=== PATIENT | female | born 1995 | race Caucasian/White ===

== ENCOUNTER 2017-01-28 12:16 | Emergency (ER) | payer MEDICAID ==
[~2017-01-28] VITALS: Ht 162.6 cm; Wt 81.6 kg
--- OUTSIDE RECORDS SUMMARY | 2017-01-28 12:38 | External Medical Summary Rpt ---
Author Author YESI M[facility] Organization [facility] Address Unknown Phone Unavailable Care Team Providers Care Automotive Refinisher Name Role Phone PHY, NOT LISTED PCP Unavailable Encounter YESI GODDARD [id number] Date(s): 07/04/16 - 07/05/16 [facility] [address] [place] [address]- Discharge Disposition: OP Self Care or Home Attending Physician: JASWINDER BLANCHARD Admitting Physician: JASWINDER BLANCHRAD Referring Physician: JASWINDER BLANCHARD Reason for Visit MISSED Vital Signs Most recent 1 2 3 to oldest [Reference Range]: Temperature Temporal artery Temporal artery Temporal artery Source scanning scanning scanning (07/05/16 6:05 (07/05/16 5:44 (07/05/16 4:02 PM) PM) PM) Temperature Fahrenheit Fahrenheit Fahrenheit Mode (07/05/16 6:05 (07/05/16 5:44 (07/05/16 4:02 PM) PM) PM) Temperature, 97.9 Deg F 97.5 Deg F 97.7 Deg F Fahrenheit (07/05/16 6:05 (07/05/16 5:44 (07/05/16 4:02 [96.8-99.7 PM) PM) PM) Deg F] Clinical 36.6 Deg C 36.4 Deg C 36.5 Deg C Temperature, (07/05/16 6:05 (07/05/16 5:44 (07/05/16 4:02 C PM) PM) PM) Peripheral 83 bpm (07/05/16 Pulse Rate 2:11 PM) [60-100 bpm] Heart Rate 66 bpm (07/05/16 62 bpm (07/05/16 57 bpm Monitored 6:05 PM) 5:44 PM) *LOW*(07/05/16 [60-100 bpm] 5:37 PM) Respiratory 18 Breaths/Min 16 Breaths/Min 16 Breaths/Min Rate [14-20 (07/05/16 6:05 (07/05/16 5:44 (07/05/16 5:37 Breaths/Min] PM) PM) PM) Blood Non-Invasive BP Pressure Device (07/05/16 Source 2:11 PM) Blood Sitting (07/05/16 Pressure 2:11 PM) Position Blood 109/66 mmHg 101/57 mmHg 100/49 mmHg Pressure (07/05/16 6:05 (07/05/16 5:44 (07/05/16 5:37 [90-140/60-9 PM) PM) PM) 0 mmHg] Oxygen 97 % (07/05/16 100 % (07/05/16 96 % (07/05/16 Saturation 6:05 PM) 5:44 PM) 5:37 PM) [94-100 %] Oxygen Room air Room air Nasal cannula Therapy Mode (07/05/16 6:05 (07/05/16 5:44 (07/05/16 5:37 PM) PM) PM) Oxygen Flow 2 Liter/Min 2 Liter/Min 2 Liter/Min Rate (07/05/16 5:37 (07/05/16 5:02 (07/05/16 4:32 PM) PM) PM) Problem List Condition Effective Status Health Informant Dates Status Vaginal Active expulsion of product of conception(C onfirmed) Allergies, Adverse Reactions, Alerts No Known Medication Allergies Medications multivitamin, ( Plus Iron oral tablet)1 Tab, Oral, Every Day, Refills: 0 Results HEMATOLOGY Most recent 1 to oldest [Reference Range]: WBC [4.2-9.1 6.2 K/uL K/uL] (07/05/16 2:01 PM) RBC 4.41 Million/uL [3.93-5.22 (07/05/16 2:01 PM) Million/uL] Hgb 12.1 Gram/dL [11.2-15.7 (07/05/16 2:01 PM) Gram/dL] Hct 36.1 % [34.1-44.9 (07/05/16 2:01 PM) %] MCV 81.9 fL [79.0-94.8 (07/05/16 2:01 PM) fL] MCH 27.4 pg [25.6-32.2 (07/05/16 2:01 PM) pg] MCHC 33.5 Gram/dL [32.2-36.5 (07/05/16 2:01 PM) Gram/dL] Platelet 175 K/uL Count (07/05/16 2:01 PM) [163-369 K/uL] MPV 11.2 fL [9.4-12.4 (07/05/16 2:01 PM) fL] RDW 14.3 % [11.6-14.4 (07/05/16 2:01 PM) %] Neut % 62.0 % [34.0-71.0 (07/05/16 2:01 PM) %] Neut # 3.85 K/uL [1.56-6.13 (07/05/16 2:01 PM) K/uL] Lymph % 30.3 % [19.0-53.0 (07/05/16 2:01 PM) %] Lymph # 1.88 K/uL [1.18-3.74 (07/05/16 2:01 PM) K/uL] [place] % 7.2 % [4.7-12.5 %] (07/05/16 2:01 PM) [place] # 0.45 K/uL [0.24-0.82 (07/05/16 2:01 PM) K/uL] Eos % 0.5 % [1.0-7.0 %] *LOW* (07/05/16 2:01 PM) Eos # 0.03 K/uL [0.04-0.54 *LOW* K/uL] (07/05/16 2:01 PM) Baso % 0.0 % [0.0-1.0 %] (07/05/16 2:01 PM) Baso # 0.00 K/uL [0.01-0.08 *LOW* K/uL] (07/05/16 2:01 PM) Slide Review No (07/05/16 2:01 PM) BLOOD BANK Most recent 1 to oldest [Reference Range]: ABO/Rh A NEG *Unknown* (07/05/16 2:01 PM) Antibody Negative ABSC Screen (07/05/16 2:01 PM) (Tube) RhIg Product RhIg Prd Ready Ready (07/05/16 2:01 PM) # of Vials 1 (07/05/16 2:01 PM) Immunizations No data available for this section Procedures Procedure Date Related Body Site Diagnosis cyst removal 2010 tonsillectomy Social History Social History Response Type Smoking Status Former smoker; Tobacco Use Within Last Twelve Months Cigarettes; Years of Tobacco Use 2; Used Tobacco, but Quit Yes Assessment and Plan No data available for this section Hospital Discharge Instructions No data available for this section
--- OUTSIDE RECORDS SUMMARY | 2017-01-28 12:38 | External Medical Summary Rpt ---
Author Author YESI Moura [facility] Organization [facility] Address Unknown Phone Unavailable Care Team Providers Care Grinder Operator Name Role Phone PHY, NOT LISTED PCP Unavailable Encounter YESI GODDARD [id number] Date(s): 07/04/16 - 07/05/16 [facility] [address] [place] [address]- Discharge Disposition: OP Self Care or Home Attending Physician: JASWINDER BLANCHARD Admitting Physician: JASWINDER BLANCHARD Referring Physician: JASWINDER BLANCHARD Reason for Visit [...] 1.88 K/uL [1.18-3.74 (07/05/16 2:01 PM) K/uL] [place] % 7.2 % [4.7-12.5 %] (07/05/16 2:01 PM) [place] # 0.45 K/uL [0.24-0.82 (07/05/16 2:01 PM) [...]
--- NOTE | 2017-01-28 12:43 | Emergency Room Report ---
History of Present Illness Time Seen by MD Tsai Presenting Problem in Triage Pt arrived:Walked Presenting Problem:PT C/O ABD PAIN THAT SHE BELIEVES IS R/T OVARIES Onset of symptoms date/time:/ or onset unknown for:MEDICAL HX UNKNOWN Treatment Prior to Arrival: [employer] Provided by: Sepsis Risk Assessment: Temp: 98.7 B/P: 131/78 MAP: 95 Pulse: 94 Resp: 18 Recent fever? N Clinical Suspician of Infection? N Mental Status: 1 - Regular (Normal Baseline) Sepsis Risk:Low Sepsis Risk Have you (or family members/close friends) recently traveled outside the [place]? N If Yes, where/when: Have you had exposure to infectious disease within the past month? N TB? Other? Specify: Source patient Exam Limitations no limitations Comment 21 yr old female presents for c/o of rt lower quad pain. pt states pain worse with intercourse. Last menstral period last week and restarted this week. Cardiac Chest Pain Chest pain indicative of cardiac No ALLERGIES Coded Allergies: No Known Allergies (01/28/17) (Scar Canales) History Medical History General CAD? No Angina: No CT: No Hypertension? No Hyperlipidemia? No CHF? No DVT? No PE? No COPD? No Asthma? No Anemia? No GERD? No Gastric ulcers? No GI Bleed? No Hernia? No Thyroid Problems? No Hypothyroidism? No CVA? No Seizures? No Diabetes? No Renal Insuffiency? No End Stage Renal Disease? No UTI? No Stones? No BPH? No GB Disease: No Nephritic Syndrome? No Asplenia? No Hepatitis? No Sickle Cell Disease? No Arthritis? No Migraines? No Cataracts? No Glaucoma? No MRSA? No HIV? No TB? No Anxiety? No Depression? No Cancer? No More? No Immunization Hx DT/Tetanus Unknown Surgical Hx Previous Surgery?Y D & C BACK CYST [employer] Hx LMP 1 Week Ago Social History Smoking Hx Smoker: Current Every Day Smoker Tobacco: Yes Type Cigarettes Alcohol Alcohol: No (Scar Canales) Review of Systems All Other Systems Reviewed and Negative Gastrointestinal see HPI, abdominal pain Genitourinary see HPI, abnormal vaginal bleeding. (cSar Canales) Physical Exam Vital Signs Vital Signs Date Time Temp Pulse Resp B/P Pulse O2 O2 Flow FiO2 Ox Delivery Rate 01/28 1312 98.7 66 18 132/83 100 06/05 1222 98.7 94 18 131/78 97 - WBC >12,000 or <4,000 or 10% bands? 2 or more SIRS Criteria Met? B/P:131/78 MAP:95 Creatinine >2.0? UA output<0.5ml/kg/hr for 2 hrs? Platelet count >100,000? Lactate >2.0mmol/1? INR >1.2 or PTT > than 60 sec? Evidence of Organ Dysfunction? Provider documented clinical suspician of infection? N Sepsis Criteria Count: 1 Sepsis Risk: Low Sepsis Risk General Appearance normal appearance, no apparent distress Respiratory Status Yes: trachea midline, chest symmetrical. No: respiratory distress. Lung Sounds bilateral: normal breath sounds, lungs clear. Cardiovascular normal exam, regular rate/rhythm Gastrointestinal normal bowel sounds, tenderness (rt quad) Back normal inspection, no CVA tenderness, no vertebral tenderness, bowel/ bladder continent Extremities non-tender, normal range of motion, normal inspection Neurologic alert, normal exam, no motor/sensory deficits, oriented x 3 (Scar Canales) Stroke Score/Tx Stroke Evaluation Initial symptoms indicative of possible stroke? No (Scar Canales) Suicide Risk Assessment Suicide Assessment indicated? No (Scar Canales) Medical Decision Making LABS/Meds/Orders Pt receiving controlled substance in ED? No Results/Orders Laboratory Tests 01/28/17 1230: Urine Color YELLOW, Urine Appearance CLEAR, Urine pH 5.5, Ur Specific [place] 1.010, Urine Protein NEGATIVE, Urine Ketones NEGATIVE, Urine Blood TRACE-LYSED, Urine Nitrate NEGATIVE, Urine Bilirubin NEGATIVE, Urine Urobilinogen 0.2, Ur Leukocyte Esterase NEGATIVE, Ur Squamous Epith Cells 3-5, Urine Bacteria TRACE, Urine Glucose NEGATIVE Current Medication Orders Sig/[place] Start time Last Medication Dose Route Stop Time Status Admin Ketorolac 30 MG ONCE ONE 01/28 1230 DC Tromethamine IV 01/28 1231 Ondansetron HCl 4 MG ONCE ONE 01/28 1230 DC IV 01/28 1231 Sodium Chloride 10 ML PRN PRN 01/28 1230 AC IV 01/29 1227 Sodium Chloride 1,000 ML .Q1H1M 01/28 1230 DC IV 01/28 1330 Sodium Chloride 10 ML PRN PRN 01/28 1230 AC IV 01/29 1227 Orders Procedure Date/time Status DIET-NOTHING BY MOUTH 01/28 D Active WET PREP 01/28 1335 Active CHLAMYDIA/GC 01/28 1335 Active US PELVIS-TRANSVAGINAL ONLY 01/28 1237 Active IV SALINE LOCK 01/28 1228 Active URINALYSIS/COMPLETE 01/28 1228 Complete URINE 01/28 1228 Complete LIPASE 01/28 1228 Active CBC WITH AUTO DIFF 01/28 1228 Active CHEM 12 PROFILE 01/28 1228 Active AMYLASE 01/28 1228 Active XRAY/CT/US XRAY/CT/US Ultrasound pelvis US Interpretation by discussed w/radiologist US results bilateral polycystic r fluid culsac uterus retroverted Progress ED Progress Notes Date 01/28/17 Time 1311 Comment [facility] office 01/31/17 @ 330 ED Procedure Note Date 01/28/17 Time 1325 - pelvic pap completed, no abnormal findings, cervix tilt to side.cultures obtained. (Scar Canales) Departure Departure Time of Disposition 1326 Disposition DC Home or Self Care(routine) Clinical Impression Primary Impression: Pelvic pain Condition STABLE Referrals Lucila HOFFMAN,Richy Lema Patient Instructions DI for Pelvic Pain Additional Instructions follow up with lucila on 01/31/17 at 330. Discharge Counseling Counseled pt/family regarding diagnosis, test results, medications/RX, home care, follow up needs Prescriptions Current Visit Scripts IBUPROFEN (Motrin 600MG) 600 MG PO Q6HP PRN BREAKTHROUGH MOD TO SEV PAIN 5 Days ED Critical Care Critical Care No If Critical Care minutes are documented, the time involved in the performance of seperately reportable procedures was not counted toward critical care time documented. I directly delivered medical care to this critically ill and/or injured patient. Timely evaluation and treatment was necessary to address the significant organ system(s) dysfunction present in this patient. Comments discussed case with dr bettencourt (Scar Canales) at 1330 at 1335
--- OUTSIDE RECORDS SUMMARY | 2017-01-28 12:43 | External Medical Summary Rpt ---
Author Author , Organization [employer] Address Unknown Phone Unavailable Care Team Providers [facility] Library Director Name Role Phone PANTAMMYAnne Marie NORMA, BOUBACAR NORMA Unavailable Unavailable [facility], [facility] Unavailable Unavailable CHR LAURA TER, LAURA TER Unavailable Unavailable HIMA JAM, HIMA JAM Unavailable Unavailable HIMA JAM, HIMA JAM Unavailable Unavailable ADAN AAR, ADAN AAR Unavailable Unavailable [facility]-JC MERLIN, Unavailable Unavailable DUCHELSIECZ-SULICZ MERLIN DUCARLIN-JC MERLIN, Unavailable Unavailable DUCHELSIECZ-JC MERLIN MILDRED-SULICZ, Unavailable Unavailable NATALY Arteaga, CHANDA, NATALY I YUE CONRAD, Unavailable Unavailable YUE CONRAD, MACK Unavailable Unavailable DEN LASHANDA MUH, LASHANDA Unavailable Unavailable MUH LASHANDA MUH, LASHANDA Unavailable Unavailable MUH LASHANDA, LYNNE, Unavailable Unavailable LASHANDA, LYNNE KANIKA BA, KANIKA ANT Unavailable Unavailable [facility], Un[facility] Unavailable [facility] Unavailable Unavailable SERVICES, [facility] [employer], Unavailable Unavailable [facility] [employer] COURTNEY LOAIZA, COURTNEY LOAIZA Unavailable Unavailable [facility] Unavailable [facility]available [facility] Unavailable Unavailable [facility], [facility] Unavailable [facility]available [facility] Unavailable [facility]available [facility] Unavailable [facility]available [facility] Unavailable Unavailable [facility] Unavailable Unavailable [facility] Unavailable Unavailable [facility] Unavailable Unavailable [facility] Unavailable Unavailable [facility] Unavailable Unavailable [facility] Unavailable Unavailable [facility] YOMI LORRIE, YOMI Unavailable Unavailable LORRIE YOMI, ROSY, YOMI, Unavailable Unavailable ROSY JEANNINE ROMAN, Unavailable Unavailable JEANNINE ROMAN JEANNINE ROMAN, Unavailable Unavailable JEANNINE ROMAN JEANNINE SEE, Unavailable Unavailable JEANNINE SEE JEANNINE SEE, Unavailable Unavailable JEANNINE SEE JEANNINE, DANIEL S, Unavailable Unavailable JEANNINE, DANIEL S JEANNINE, THU, Unavailable Unavailable JEANNINE, THU DANA SHE, DANA SHE Unavailable Unavailable [facility], Unavailable Unavailable [facility] RONNIE, ENID L, Unavailable Unavailable RONNIE, ENID L [facility], Unavailable Unavailable [facility] FITZ MIRAMONTES, FITZ Unavailable Unavailable [facility] Unavailable Unavailable #[id number], [id number] [place] [place] Unavailable Unavailable Purpose Continuity of Care Document - 10-13-2007 through 2016 Problems Code Diagnosis DOS Provider Status J020 STREPTOCOCC 05-29-2015 [facility] AL FOR PHARYNGITIS CHILDREN V2541 SURVEILLANC 01-05-2015 [facility] E [facility] PRESCRIBED [place] CONTRACEPT PILL V2689 OTHER 01-05-2015 [facility] SPECIFIED HEALTH PROCREATIVE [place] MANAGEMENT 463 ACUTE 01-03-2015 [facility] TONSILLITIS FOR CHILDREN 7245 UNSPECIFIED 12-14-2014 [facility] BACKACHE FOR CHILDREN 12643 MIGRAINE 10-03-2014 [facility]YS[facility]ANS W/O AURA FOR W/O INTRACT CHILDREN W/O STAT MIGRNOSUS 97198 SPRAIN AND 10-03-2014 [facility]IANS STRAIN OF FOR 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 HAND 462 ACUTE 08-16-2014 [facility] PHARYNGITIS FOR CHILDREN 4659 ACUTE URIS 08-16-2014 [facility]ANS OF FOR UNSPECIFIED CHILDREN SITE 0340 STREPTOCOCC 05-12-2014 [facility]YSICIANS AL SORE FOR THROAT CHILDREN V011 CONTACT 04-08-2014 [facility] WITH OR EXPOSURE TO TUBERCULOSI S V0184 CONTACT OR 04-08-2014 [facility] EXPOSURE TO MENINGOCOCC US V653 DIETARY 04-08-2014 [facility] SURVEILLANC E AND COUNSELING V6541 EXCERCISE 04-08-2014 [facility] COUNSELING V700 ROUTINE 04-08-2014 [facility]DA [facility] GENERAL MEDICAL EXAM@HEALTH CARE FACL V720 EXAMINATION 04-08-2014 [facility]DA [facility] OF EYES AND VISION V7219 OTHER 04-08-2014 [facility] EXAMIN[facility] OF EARS AND HEARING V8554 BODY MASS 04-08-2014 [facility] INDEX PED >/EQUAL TO 95TH % AGE 4660 ACUTE 11-09-2013 [facility] BRONCHITIS 8489 UNSPECIFIED 11-09-2013 [facility] SITE OF SPRAIN AND STRAIN 94120 MASTODYNIA 08-20-2013 [facility] 15934 LUMP OR 08-20-2013 [facility] MASS IN MEDICAL BREAST CENTER 6119 UN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[facility] BREAST MEDICAL DISORDER CENTER 7576 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[facility] CONGENITAL MEDICAL ANOMALIES CENTER OF BREAST 88765 OTHER 08-20-2013 [facility] ABNORMAL MEDICAL FINDING CENTER RADIOLOGICA L EXAM BREAST V725 RADIOLOGICA 08-20-2013 [facility]AN EXAMINATION NEC 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 54748 ASTHMA, 07-03-2013 JEANNINE UNSPECIFIED SEE , UNSPECIFIED STATUS 95309 UNSPECIFIED 06-26-2013 LASHANDA [facility] CONSTIPATIO N 17381 UNSPECIFIED 04-30-2013 [facility]ASH[facility]DA [facility] OTALGIA 4779 ALLERGIC 04-30-2013 [facility] RHINITIS CAUSE UNSPECIFIED 69492 OBESITY, 04-17-2013 JEANNINE UNSPECIFIED SEE 04333 UNSPECIFIED 04-17-2013 JEANNINE VAGINITIS SEE AND VULVOVAGINI TIS 88433 SCOLIOSIS , 04-17-2013 JEANNINE IDIOPATHIC SEE 2662 OTHER 01-14-2013 [facility] B-COMPLEX HEALTH DEFICIENCIYuliya Walker V2549 SURVEILLANC 01-14-2013 [facility] E OT PREV HEALTH PRSC SHARONDA CONTRACEPT METHOD 9100 FCE 01-07-2013 [facility] NCK&SCLP NO CENTRAL EYE HIGH LJ ABRAS/FRIC BURN W/O INF 9597 INJURY 01-07-2013 [facility] OTHER&UNSPE CENTRAL CIFIED KNEE HIGH LJ LEG ANKLE&FOOT 7061 OTHER ACNE 12-19-2012 [facility] 920 CONTUSION 11-02-2012 [facility] OF FACE CZ [facility]LIN SCALP AND NECK EXCEPT EYE 38542 ESOPHAGEAL 09-18-2012 [facility] REFLUX 4658 ACUTE URIS 09-01-2012 LASHANDA MU OF OTHER MULTIPLE SITES 490 BRONCHITIS 09-01-2012 LASHANDA MU NOT SPECIFIED ACUTE OR CHRONIC 3671 MYOPIA 08-20-2012 HIMA JAM 35066 DYSPHAGIA 07-10-2012 JEANNINE UNSPECIFIED ROMAN 7840 HEADACHE 06-20-2012 [place] [address] ABDOMINAL 06-13-2012 LASHANDA MU PAIN, UNSPECIFIED SITE 4619 ACUTE 04-25-2012 [facility] SINUSITIS, UNSPECIFIED 10388 PAIN IN 04-23-2012 [facility]INT, MEDICAL LOWER LEG CENTER 7295 PAIN IN 03-25-2012 [facility] SOFT MEDICAL TISSUES OF TAFT LIMB 8448 SPRAIN&STRA 03-25-2012 [facility] IN OTHER MEDICAL SPECIFIED CENTER COREY SITES KNEE&LEG 09743 UNSPECIFIED 03-25-2012 [facility] SITE OF MEDICAL ANKLE CENTER COREY SPRAIN AND STRAIN 1121 CANDIDIASIS 02-14-2012 [facility] VULVA HEALTH AND VAGINA [facility] V0481 NEED 05-11-2011 PHYSICIANS PROPHYLACTI FOR C CHILDREN VACCINATION &INOCULATIO N FLU V2502 GENERAL 03-14-2011 [facility] CNSL HEALTH INITIATION [facility] CONTRACEPT MEASURES 7062 SEBACEOUS 02-14-2011 [facility] CYST MEDICAL TAFT INC 6829 CELLULITIS 01-07-2011 [facility] AND ABSCESS MEDICAL [facility] UNSPECIFIED SITE 43059 LEUKOCYTOPE 01-06-2011 PHYSICIANS TAZ FOR UNSPECIFIED CHILDREN 6822 CELLULITIS 12-29-2010 [facility] AND ABSCESS MEDICAL OF TRUNK CENTER 7822 LOCALIZED 12-29-2010 [facility] SUPERFICIAL MEDICAL SWELLING TAFT MASS OR LU[place] 4871 INFLUENZA 11-20-2010 PH[facility]ANS WITH OTHER FOR RESPIRATORY CHILDREN MANIFESTATI ONS V0389 NEED PROPH 05-17-2010 [facility]ANS VACC FOR AGAINST OTH CHILDREN SPEC VACC 56864 PAIN IN 05-11-2010 [facility], MEDICAL UPPER ARM CENTER 9593 INJURY 05-11-2010 [facility] OTHER&UNSPE MEDICAL CIFIED TAFT [facility]BOW FOREARM&WRI ST E8859 FALL FROM 05-11-2010 [facility] OTHER EMERGENCY SLIPPING SERVICES TRIPPING OR STUMBLING V054 NEED PROPH 03-08-2010 PHYSICIANS VACC&INOCUL FOR AT AGAINST CHILDREN VARICELLA 98282 PAIN IN 11-15-2009 [facility], MEDICAL FOREARM CENTER 83060 SPRAIN AND 11-14-2009 [facility] OF EMERGENCY UNSPECIFIED SERVICES SITE OF ASSOCIATES WRIST V6759 OTHER 10-17-2009 [facility] MEDICAL EXAMINATION CENTER OTHER 36999 EXTRINSIC 07-20-2009 PHYSICIANS ASTHMA, FOR WITH CHILDREN EXACERBATIO N 11321 UNSPECIFIED 06-27-2009 PHYSICIANS VIRAL FOR INFECTION CHILDREN IN CCE & UNS SITE V202 ROUTINE 05-20-2009 PHYSICIANS INFANT OR FOR CHILD CHILDREN HEALTH CHECK V059 NEED PROPH 03-04-2009 PHYSICIANS VACC&INOCUL FOR AT AGNST [place]Z 15492 DIARRHEA 02-11-2009 [facility] FOR [facility] 21855 CONTACT 12-13-2008 [facility] DERMATITIS& HEALTH OTHER CENTRAL ECZ[place] DUE BANK ACCT TO SUNBURN 9492 BLISTERS 12-11-2008 PHYSICIANS W/EPIDERMAL FOR LOSS DUE CHILDREN BURN UNSPEC SITE 7048 OTHER 06-30-2008 [facility]ANS SPECIFIED FOR DISEASE OF CHILDREN HAIR&HAIR FOLLICLES 22370 ACUTE 06-16-2008 PHYSICIANS GASTRITIS FOR WITHOUT CHILDREN MENTION OF HEMORRHAGE 5997 HEMATURIA 06-16-2008 [facility] 35616 CONTUSION 05-31-2008 [facility] EMERGENCY SERVICES [facility]OC[facility]ATES 7231 CERVICALGIA 12-02-2007 [facility] FOR CHILDREN V061 NEED PROPH 10-13-2007 PHYSICIANS VAC W/COMB FOR DIPHTH-TETA CHILDREN NUS-PERTUSS VAC Medications Na ND Rx Da Fi Fi Am Da Di Ph RX Ph St me C No te ll ll ou ys ag ar # ys at rm s nt no ma ic us Or Da si cy ia de te s n re d CE 00 09 09 20 10 TO 10 ID Ac FP 09 -2 -2 .0 TA 16 RE ti RO 31 1- 1- 00 L 27 ES ve ZI 07 20 20 PH 2 L 70 11 11 AR MU 25 1 MA BURNS 0 CY MM MG AD CA TA RE BL ET IB 55 09 09 30 8 TO 10 ID Ac UP 11 -2 -2 .0 TA 16 RE ti RO 10 1- 1- 00 L 26 ES ve FE 68 20 20 PH 4 N 20 11 11 AR MU 40 1 MA BURNS 0 CY MM MG AD CA TA RE BL ET FE 00 07 07 60 30 TO 10 ID Ac RR 67 -1 -1 .0 TA 03 RE ti OU 70 9- 9- 00 L 98 ES ve S 07 20 20 PH 8 ACEVEDO 01 11 11 AR MU LF 0 MA BURNS AT CY MM E AD 32 CA 5 RE MG TA BL ET EP 00 07 07 45 7 TO 10 ID Ac ID 29 -1 -1 .0 TA 03 RE ti UO 95 9- 9- 00 L 98 ES ve 90 20 20 PH 7 0. 84 11 11 AR MU 1- 5 MA BURNS 2. CY MM 5% AD CA GE RE L AL 00 07 07 30 30 TO 10 ID Ac NO 59 -1 -1 .0 TA 03 RE ti CY 15 9- 9- 00 L 98 ES ve CL 69 20 20 PH 6 IN 40 11 11 AR MU E 1 MA BURNS 50 CY MM AD MG CA RE CA PS UL E AL 00 03 06 30 30 TO 97 ID Ac NO 59 -0 -0 .0 TA 74 RE ti CY 15 4- 1- 00 L 42 ES ve CL 69 20 20 PH IN 40 11 11 AR MU E 1 MA BURNS 50 CY MM AD MG CA RE CA PS UL E 00 05 05 42 7 TO 99 AJ Ac 59 -1 -1 .0 TA 29 KA ti 10 9- 9- 00 L 57 Y ve 34 20 20 PH NI 90 11 11 AR CH 5 MA OL CY CA RE ACEVEDO 53 05 05 0 10 5 PI 53 DU Ac LF 48 -1 -1 .0 KE 22 DY ti AM 90 5- 5- 00 32 CZ ve ET 14 20 20 LL -S HO 60 11 11 E UL XA 5 UN IC ZO IT Z LE ED KA -T TA MP ME RZ TH YN DS OD A IS I TA T BL HO ET S ACEVEDO 00 05 05 20 10 TO 98 DU Ac LF 60 -0 -0 .0 TA 94 DY ti AM 35 2- 2- 00 L 45 CZ ve ET 78 20 20 PH -S HO 12 11 11 AR UL XA 1 MA IC ZO CY Z LE KA -T CA TA MP RE RZ YN DS A I TA BL ET MU 45 05 05 22 7 TO 98 DU Ac PI 80 -0 -0 .0 TA 94 DY ti RO 20 2- 2- 00 L 44 CZ ve CI 11 20 20 PH -S N 22 11 11 AR UL 2% 2 MA IC CY Z OI KA NT CA TA ME RE RZ NT YN A I CE 45 04 04 30 30 TO 98 ID Ac TI 80 -0 -0 .0 TA 46 RE ti RI 20 7- 7- 00 L 14 ES ve ZI 91 20 20 PH NE 98 11 11 AR MU 7 MA BURNS HC CY MM L AD 10 CA RE MG TA BL ET 59 04 04 20 10 TO 98 ID Ac 76 -0 -0 .0 TA 46 RE ti 22 4- 7- 00 L 12 ES ve 18 20 20 PH 00 11 11 AR MU 1 MA BURNS CY MM AD CA RE 00 03 03 0 10 10 PI 53 DU Ac 09 -2 -2 .0 KE 04 DY ti 51 8- 8- 00 48 CZ ve 29 20 20 LL -S 00 11 11 E UL 6 UN IC IT Z ED KA TA ME RZ TH YN OD A IS I T HO S TA 00 03 03 0 10 5 PI 53 DU Ac AL 00 -2 -2 .0 KE 04 DY ti FL 40 8- 8- 00 47 CZ ve U 80 20 20 LL -S 75 08 11 11 E UL 5 UN IC MG IT Z ED KA CA TA PS ME RZ UL TH YN E OD A IS I T HO S AM 66 03 03 20 10 TO 98 ID Ac OX 68 -2 -2 .0 TA 11 RE ti -C 51 2- 2- 00 L 40 ES ve LA 00 20 20 PH V 10 11 11 AR MU 87 1 MA BURNS 5- CY MM 12 AD 5 CA MG RE TA BL ET NA 00 03 03 17 30 TO 97 ID Ac SO 08 -1 -1 .0 TA 93 RE ti NE 51 4- 4- 00 L 21 ES ve X 28 20 20 PH 50 80 11 11 AR MU 1 MA BURNS MC CY MM G AD NA CA SA RE L SP RA Y 00 03 03 10 10 TO 97 ID Ac 09 -1 -1 .0 TA 93 RE ti 51 4- 4- 00 L 22 ES ve 29 20 20 PH 00 11 11 AR MU 6 MA BURNS CY MM AD CA RE NO 00 03 03 30 30 TO 97 ID Ac N- 90 -0 -0 .0 TA [address] 45 4- 4- 00 L 38 ES ve OW 72 20 20 PH SY 88 11 11 AR MU 7 MA BURNS AL CY MM LE AD RG CA Y RE 10 MG TA B EP 00 03 03 45 30 TO 97 ID Ac ID 29 -0 -0 .0 TA 74 RE ti UO 95 4- 4- 00 L 40 ES ve 90 20 20 PH 0. 84 11 11 AR MU 1- 5 MA BURNS 2. CY MM 5% AD CA GE RE L AL 00 03 03 30 30 TO 97 ID Ac NO 59 -0 -0 .0 TA 74 RE ti CY 15 4- 4- 00 L 42 ES ve CL 69 20 20 PH IN 40 11 11 AR MU E 1 MA BURNS 50 CY MM AD MG CA RE CA PS UL E AL 00 12 12 30 30 TO 96 ID Ac NO 59 -3 -3 .0 TA 46 RE ti CY 15 1- 1- 00 L 55 ES ve CL 69 20 20 PH IN 55 10 10 AR MU E 0 MA BURNS 10 CY MM 0 AD MG CA RE CA PS UL E AL 00 11 11 30 30 TO 95 ID Ac NO 59 -1 -1 .0 TA 61 RE ti CY 15 5- 5- 00 L 23 ES ve CL 69 20 20 PH IN 55 10 10 AR MU E 0 MA BURNS 10 CY MM 0 AD MG CA RE CA PS UL E EP 00 10 10 45 20 TO 95 ID Ac ID 29 -1 -1 .0 TA 00 RE ti UO 95 5- 5- 00 L 99 ES ve 90 20 20 PH 0. 84 10 10 AR MU 1- 5 MA BURNS 2. CY MM 5% AD CA GE RE L AL 00 10 10 30 30 TO 95 ID Ac NO 59 -1 -1 .0 TA 00 RE ti CY 15 5- 5- 00 L 50 ES ve CL 69 20 20 PH IN 55 10 10 AR MU E 0 MA BURNS 10 CY MM 0 AD MG CA RE CA PS UL E AL 00 03 05 30 30 TO 91 ID Ac NO 59 -2 -2 .0 TA 18 RE ti CY 15 3- 6- 00 L 45 ES ve CL 69 20 20 PH IN 55 10 10 AR MU E 0 MA BURNS 10 CY MM 0 AD MG CA RE CA PS UL E 63 02 05 29 30 TO 90 SA Ac 71 -2 -2 7. TA 60 CH ti 70 2- 6- 00 L 27 DE ve 03 20 20 0 PH VA 01 10 10 AR 1 MA RA CY KE SH CA S RE EP 00 03 03 45 20 TO 91 ID Ac ID 29 -2 -2 .0 TA 18 RE ti UO 95 3- 3- 00 L 44 ES ve 90 20 20 PH 0. 84 10 10 AR MU 1- 5 MA BURNS 2. CY MM 5% AD CA GE RE L AL 00 03 03 30 30 TO 91 ID Ac NO 59 -2 -2 .0 TA 18 RE ti CY 15 3- 3- 00 L 45 ES ve CL 69 20 20 PH IN 55 10 10 AR MU E 0 MA BURNS 10 CY MM 0 AD MG CA RE CA PS UL E 00 12 12 00 5. 5 TO 89 SA Ac 09 -0 -1 00 TA 25 CH ti 51 8- 7- 0 L 59 DE ve 29 20 20 PH VA 00 09 09 AR 6 MA SE CY EM A CA RE VE 00 12 12 00 18 30 TO 89 SA Ac NT 17 -0 -1 .0 TA 25 CH ti OL 30 8- 7- 00 L 57 DE ve IN 68 20 20 PH VA 22 09 09 AR HF 0 MA SE A CY EM 90 A CA MC RE G IN BURNS LE R NO 00 12 12 00 30 30 TO 89 SA Ac N- 90 -0 -1 .0 TA [address] 45 8- 7- 00 L 55 DE ve OW 72 20 20 PH VA SY 88 09 09 AR 7 MA SE AL CY EM LE A RG CA Y RE 10 MG TA B 00 12 12 00 25 13 TO 89 SA Ac 06 -0 -1 .0 TA 25 CH ti 60 8- 7- 00 L 60 DE ve 49 20 20 PH VA 42 09 09 AR 5 MA SE CY EM A CA RE FL 00 12 12 00 12 30 TO 89 SA Ac OV 17 -0 -1 .0 TA 25 CH ti EN 30 8- 7- 00 L 58 DE ve T 71 20 20 PH VA HF 92 09 09 AR A 0 MA SE 11 CY EM 0 A MC CA G RE IN BURNS LE R NA 00 12 12 00 17 17 TO 89 SA Ac SO 08 -0 -1 .0 TA 25 CH ti NE 51 8- 7- 00 L 56 DE ve X 28 20 20 PH VA 50 80 09 09 AR 1 MA SE MC CY EM G A NA CA SA RE L SP RA Y SI 00 11 12 00 30 30 TO 89 ID Ac NG 00 -2 -0 .0 TA 01 RE ti UL 60 5- 3- 00 L 00 ES ve AI 27 20 20 PH R 55 09 09 AR MU 5 4 MA BURNS MG CY MM AD TA CA BL RE ET CH EW AZ 00 10 11 00 6. 3 TO 88 SA Ac IT 78 -1 -0 00 TA 26 CH ti HR 11 9- 5- 0 L 11 DE ve OM 49 20 20 PH VA YC 66 09 09 AR IN 8 MA RA CY KE 25 SH 0 CA S MG RE TA BL ET FL 00 10 11 00 12 30 PH 50 ID Ac OV 17 -2 -0 .0 AR 36 RE ti EN 30 1- 5- 00 MA 68 ES ve T 71 20 20 CY HF 92 09 09 MU A 0 OU BURNS 11 TL MM 0 ET AD MC G #3 IN BURNS LE R 00 10 11 00 13 3 TO 88 SA Ac 14 -2 -0 .0 TA 42 CH ti 31 7- 5- 00 L 03 DE ve 47 20 20 PH VA 30 09 09 AR 1 MA RA CY KE SH CA S RE 60 10 11 00 75 5 TO 88 SA Ac 25 -1 -0 .0 TA 26 CH ti 80 9- 5- 00 L 12 DE ve 23 20 20 PH VA 91 09 09 AR 6 MA RA CY KE SH CA S RE SM 49 10 11 00 8. 2 TO 88 SA Ac 34 -1 -0 00 TA 26 CH ti PA 80 9- 5- 0 L 10 DE ve IN 04 20 20 PH VA 21 09 09 AR RE 0 MA RA LI CY KE EV SH ER CA S RE [address] ET SI 00 10 11 00 30 30 TO 88 SA Ac NG 00 -2 -0 .0 TA 42 CH ti UL 60 7- 5- 00 L 05 DE ve AI 27 20 20 PH VA R 55 09 09 AR 5 4 MA RA MG CY KE SH TA CA S BL RE ET CH EW CL 00 10 11 00 20 10 TO 88 SA Ac AR 78 -2 -0 .0 TA 41 CH ti IT 11 7- 5- 00 L 99 DE ve HR 96 20 20 PH VA OM 16 09 09 AR YC 0 MA RA IN CY KE SH 25 CA S 0 RE MG TA BL ET 59 10 11 00 8. 30 PH 50 ID Ac 31 -2 -0 50 AR 36 RE ti 00 1- 5- 0 MA 69 ES ve 57 20 20 CY 92 09 09 MU 0 OU BURNS TL MM ET AD #3 AL 00 08 10 01 30 30 TO 87 SA Ac NO 59 -1 -2 .0 TA 04 CH ti CY 15 7- 2- 00 L 01 DE ve CL 69 20 20 PH VA IN 55 09 09 AR E 0 MA RA 10 CY KE 0 SH MG CA S RE CA PS UL E 00 08 10 01 1. 30 TO 87 SA Ac 14 -1 -2 00 TA 04 CH ti 52 7- 2- 0 L 02 DE ve 36 20 20 PH VA 70 09 09 AR 1 MA RA CY KE SH CA S RE 59 09 09 00 12 12 TO 87 ID Ac 70 -0 -2 0. TA 47 RE ti 20 9- 4- 00 L 87 ES ve 80 20 20 0 PH 01 09 09 AR MU 6 MA BURNS CY MM AD CA RE 60 09 09 00 14 7 TO 87 ID Ac 50 -0 -2 .0 TA 47 RE ti 50 9- 4- 00 L 88 ES ve 02 20 20 PH 50 09 09 AR MU 6 MA BURNS CY MM AD CA RE 63 08 08 00 29 20 TO 87 SA Ac 71 -1 -2 7. TA 04 CH ti 70 7- 7- 00 L 04 DE ve 03 20 20 0 PH VA 01 09 09 AR 1 MA SE CY EM A CA RE 00 08 08 00 1. 30 TO 87 SA Ac 14 -1 -2 00 TA 04 CH ti 52 7- 7- 0 L 02 DE ve 36 20 20 PH VA 70 09 09 AR 1 MA RA CY KE SH CA S RE DI 00 08 08 00 45 15 TO 87 SA Ac FF 29 -1 -2 .0 TA 04 CH ti ER 95 7- 7- 00 L 00 DE ve IN 91 20 20 PH VA 04 09 09 AR 0. 5 MA RA 1% CY KE SH GE CA S L RE AL 00 08 08 00 30 30 TO 87 SA Ac NO 59 -1 -2 .0 TA 04 CH ti CY 15 7- 7- 00 L 01 DE ve CL 69 20 20 PH VA IN 55 09 09 AR E 0 MA RA 10 CY KE 0 SH MG CA S RE CA PS UL E 60 06 07 00 60 30 TO 86 ID Ac 50 -1 -0 .0 TA 08 RE ti 50 9- 2- 00 L 78 ES ve 02 20 20 PH 50 09 09 AR MU 6 MA BURNS CY MM AD CA RE SI 00 04 05 00 50 20 WA 73 ID Ac LV 59 -1 -0 .0 L- 94 RE ti ER 10 8- 7- 00 MA 30 ES ve 81 20 20 RT 5 ACEVEDO 05 09 09 MU LF 5 PH BURNS AD AR MM IA MA AD ZI CY NE #1 1% 50 5 CR EA M 00 03 04 00 5. 5 TO 84 ID Ac 09 -2 -0 00 TA 46 RE ti 51 3- 9- 0 L 36 ES ve 29 20 20 PH 00 09 09 AR MU 6 MA BURNS CY MM AD CA RE AZ 00 03 04 00 6. 3 TO 84 ID Ac IT 78 -2 -0 00 TA 46 RE ti HR 11 3- 9- 0 L 35 ES ve OM 49 20 20 PH YC 66 09 09 AR MU IN 8 MA BURNS CY MM 25 AD 0 CA MG RE TA BL ET 59 10 11 00 12 7 PH 48 ID Ac 70 -2 -0 0. AR 56 RE ti 20 2- 7- 00 MA 15 ES ve 80 20 20 0 CY 01 08 08 MU 6 OU BURNS TL MM ET AD #3 49 10 11 00 30 15 PH 48 ID Ac 88 -2 -0 .0 AR 56 RE ti 40 2- 7- 00 MA 16 ES ve 54 20 20 CY 40 08 08 MU 5 OU BURNS TL MM ET AD #3 AM 00 10 11 00 20 10 PH 48 ID Ac OX 09 -2 -0 .0 AR 56 RE ti -C 32 2- 7- 00 MA 14 ES ve LA 27 20 20 CY V 53 08 08 MU 87 4 OU BURNS 5- TL MM 12 ET AD 5 MG #3 TA BL ET MU 45 10 11 00 1. 14 PH 48 ID Ac PI 80 -2 -0 00 AR 56 RE ti RO 20 2- 7- 0 MA 17 ES ve CI 11 20 20 CY N 22 08 08 MU 2% 2 OU BURNS TL MM OI ET AD NT ME #3 NT 00 08 08 00 25 13 TO 80 No Ac 06 -1 -2 .0 TA 27 t ti 60 5- 8- 00 L 02 Av ve 49 20 20 PH ai 42 08 08 AR la 5 MA bl CY e CA RE KE 00 05 06 00 12 20 TO 78 No Ac TO 78 -2 -0 0. TA 87 t ti CO 17 8- 5- 00 L 19 Av ve NA 09 20 20 0 PH ai ZO 00 08 08 AR la LE 4 MA bl CY e 2% CA SH RE AM PO O 49 04 04 00 30 8 TO 77 No Ac 88 -0 -2 .0 TA 97 t ti 40 9- 4- 00 L 36 Av ve 77 20 20 PH ai 70 08 08 AR la 1 MA bl CY e CA RE Immunization Name Date Route CVX Reacti Commen Provid Is Given on t er Refuse d MCV4 114 Mening LASHANDA No MENACW 2013 ococcu MUH Y CONJ s VACC vaccin GRPS e ACYW-1 admini 35 IM stered USE ; formul ation not specif ied. MCV4 136 Mening LASHANDA No MENACW 2013 ococcu MUH Y CONJ s VACC vaccin GRPS e ACYW-1 admini 35 IM stered USE ; formul ation not specif ied. IIV3 LASHANDA No VACCIN 2010 MUH E SPLIT VIRUS 0.5 ML DOSAGE IM USE HEPA SACHDE No VACCIN 2009 [facility] ROMAN E 2 DOSE SCHEDU LE PED/AD OLESC IM USE IIV3 SACHDE No VACCIN 2009 [facility] ROMAN E SPLIT VIRUS 0.5 ML DOSAGE IM USE LALA DUDYCZ No VACCIN 2009 -SULIC E LIVE Z, FOR KATARZ SUBCUT YNA I ANEOUS USE IIV3 SACHDE No VACCIN 2008 VA, E DANIEL SPLIT S VIRUS 0.5 ML DOSAGE IM USE HEPA SACHDE No VACCIN 2008 VA, E 2 THU DOSE SCHEDU LE PED/AD OLESC IM USE 4VHPV LASHANDA No VACCIN 2008 , E 3 MUHAMM DOSE AD SCHEDU LE FOR IM USE LAIV3 SACHDE No VACCIN 2007 VA, E LIVE THU FOR INTRAN ADILSON USE 4VHPV SACHDE No VACCIN 2007 VA, E 3 DANIEL DOSE S SCHEDU LE FOR IM USE 4VHPV LASHANDA No VACCIN 2007 , E 3 MUHAMM DOSE AD SCHEDU LE FOR IM USE MCV4 Mening LASHANDA No MENACW 2007 ococcu , Y CONJ s MUHAMM VACC vaccin AD GRPS e ACYW-1 admini 35 IM stered USE ; formul ation not specif ied. MCV4 136 Mening LASHANDA No MENACW 2007 ococcu , Y CONJ s MUHAMM VACC vaccin AD GRPS e ACYW-1 admini 35 IM stered USE ; formul ation not specif ied. TDAP LASHANDA No VACCIN 2008 , E 7 MUHAMM YRS/> AD IM Procedures Procedure DOS Code Location Performer Comment IAADIADOO [id number] PHYSICIAN DANA COLLINS 5 S [facility] 27766 PHYSICIAN DANA COLLINS PROVIDED 5 S FOR OFFICE CHILDREN OTH/THN REG SCHED HOURS IADNA 27776 MARI GUERRA CHLAMYDIA [address] [place] [address] [employer] SHARONDA MCDONOUGH IS AMPLIFIED PROBE TQ CONTRACEP [id number] MARI WELCH 5 [facility] SHARONDA MCDONOUGH CONTROL IADNA 36338 MARI GUERRA NEISSERIA 5 [facility] GONORRHOE SHARONDA MCDONOUGH AE AMPLIFIED PROBE TQ IAADIADOO 12309 PHYSICIAN LASHANDA 5 S FOR [facility] CCUS GROUP [facility] SERVICES 78408 PHYSICIAN LASHANDA PROVIDED 5 S [facility] OFFICE [facility]ILDREN OTH/THN REG SCHED HOURS IAADIADOO 29658 PHYSICIAN FAIRBANKS 4 S [facility] INFLUENZA CHILDREN IAADIADOO 20893 PHYSICIAN MAGDI 4 S [facility] CCUS GROUP A CONTRACEP S4993 MARI WELCH 4 [facility] SHARONDA MCDONOUGH CONTROL BLOOD 88675 LASHANDA LASHANDA COUNT 4 [facility] COMPLETE AUTO&AUTO DIFRNTL WBC SKIN TEST 40728 LASHANDA LASHANDA 4 [facility] TUBERCULO SIS INTRADERM AL PURE TONE 64486 LASHANDA LASHANDA 4 [facility] AUDIOMETR Y AIR ONLY SCREENING 17052 LASHANDA LASHANDA TEST 4 [facility] VISUAL ACUITY QUANTITAT VALENTINE BILAT MCV4 93186 LASHANDA LASHANDA MENACWY 4 [facility] CONJ VACC GRPS ACYW-135 IM USE CONTRACEP S4993 MARI WELCH 4 [facility] SHARONDA MCDONOUGH CONTROL IAADIADOO 71034 LASHANDA LASHANDA 4 [facility] STREPTOCO CCUS GROUP A CONTRACEP S4993 MARI GUERRA TIVE 4 [facility] SHARONDA MCDONOUGH CONTROL US BREAST 90817 SHARONDA MCDONOUGH REAL 3 [facility] CENTER W/IMAGE DOCUMENTA TION URINE 41671 DUDYCZ-ACEVEDO DUDYCZ-ACEVEDO 3 LICZ [facility]LIN LICZ MERLIN TEST VISUAL COLOR CMPRSN METHS IAADIADOO 48296 LASHANDA LASHANDA 3 [facility] STREPTOCO CCUS GROUP A URNLS DIP 67961 LASHANDA LASHANDA 3 [facility] STICK/TAB LET RGNT NON-AUTO W/O MICRSCP COLLECTIO 56378 SHARONDA MCDONOUGH N VENOUS [address] [place] [address] BLOOD [facility] VENIPUNCT URE RADEX 20878 [facility] MAGNOLIACLARE SPINE [address] [place] [address] THORACOLM TAFT CENTER BR STANDING SCOLIOSIS LIPID 82473 [facility] MEEHANKAYLI PANEL [address] [place] [address] GLUCOSE 47437 [facility] MEEHANBALACLARE QUANTITAT [address] [place] [address] VALENTINE BLOOD [facility] [place] [address] [facility] SHARONDA THYROXINE [address] [place] [address] [place] [address] SHARONDA MCDONOUGH THYROID [address] [place] [address] STIMULATI [facility] NG HORMONE TSH IAADIADOO 04091 DUDYCZ-ACEVEDO DUDYCZ-ACEVEDO 3 LICZ MERLIN LICZ MERLIN STREPTOCO CCUS GROUP A INJECTION J1050 MARI GUERRA [address] [place] [address] [facility] E ACETATE 1 MG URINE 82066 MARI GUERRA [address] [place] [address] VISUAL SHARONDA MCDONOUGH COLOR CMPRSN [facility] 37041 DUDYCZ-ACEVEDO DUDYCZ-ACEVEDO PROVIDED 3 LICZ MERLIN LICZ MERLIN OFFICE OTH/THN REG SCHED HOURS INJECTION J1050 MARI GUERRA [address] [place] [address] SHARONDA E ACETATE 1 MG IAADIADOO 98885 LASHANDA LASHANDA 3 [facility] STREPTOCO CCUS GROUP A OPHTH 91328 HIMA JAM HIMA KULWINDER MEDICAL 2 XM&EVAL INTERMEDI ATE NEW PT DETERMINA 88519 HIAM JAM HIMA KULWINDER TION 2 REFRACTIV E STATE INJ J1055 MARI GUERRA MDRXYPRGE [address] [place] [address] ACTAT [facility] USE 150 MG IADNA 10-30-201 18419 SHEFALIBALACLARE SHARONDA SHEA 2 [facility] SPE[facility]ES [facility] CENTER AMPLIFIED PROBE TQ IADNA 14539 SHEFALIBALACLARE SHARONDA CHLAMYDIA 2 [facility] TRACHOMAT IS AMPLIFIED PROBE TQ IADNA 91303 SHARONDA MEEHANBALACLARE NEISSERIA 2 [facility] GONORRHOE AE AMPLIFIED PROBE TQ IADNA NOS 28117 SHARONDA MCDONOUGH 2 [facility][NOTE 3] CENTER PROBE TQ EACH ORGANISM CULTURE 62743 SHARONDA MCDONOUGH BACTERIAL [address] [place] [address] QUANTTATI VE COLONY COUNT URINE URNLS DIP 82319 SHARONDA MEEHANKAYLI [address] [place] [address] STICK/TAB CENTER TAFT LET REAGENT AUTO MICROSCOP Y BLOOD 54285 DUDYCZ-ACEVEDO DUDYCZ-ACEVEDO COUNT 2 LICZ [facility] LICZ [facility]LIN COMPLETE AUTO&AUTO DIFRNTL WBC SERVICES 12433 DUDYCZ-ACEVEDO DUDYCZ-ACEVEDO PROVIDED 2 LICZ MERLIN LICZ MERLIN OFFICE OTH/THN REG SCHED HOURS IAADIADOO 67146 LASHANDA LASHANDA 2 [facility] STREPT[facility] A SERVICES 87442 LASHANDA LASHANDA PROVIDED 2 [facility] OFFICE OTH/THN REG SCHED HOURS INJ J1055 MARI GUERRA MDRXYPRGE [address] [place] [address] ACTAT [facility] 150 MG IAADIADOO 77484 LASHANDA LASHANDA 2 [facility] CCUS GROUP A PHYSICAL 70064 SHARONDA MCDONOUGH THERAPY 2 [facility] MEDICAL EVALUATIO CENTER TAFT N RADEX 20467 SHARONDA PENUELAS LAR ANKLE 2 COMPLETE RADIOLOGY MINIMUM 3 PLLC VIEWS RADIOLOGI 34460 SHARONDA [facility] C EXAM 2 KNEE RADIOLOGY COMPLETE PLLC 4/MORE VIEWS KNEE L1810 SHARONDA MCDONOUGH ORTHOSIS 2 [facility] ELASTIC CENTER TAFT JOINTS COREY COREY PREFAB CUSTOM FIT ANKLE L4350 SHARONDA MCDONOUGH CONTROL 2 [facility] ORTHOSIS [facility] TAFT STIRRUP COREY COREY STYL RIGID PREFAB COLLECTIO 25300 SHARONDA MCDONOUGH N VENOUS 2 [facility] BLOOD TAFT CENTER VENIPUNCT URE SKIN TEST 49558 JEANNINE JEANNINE 2 SEE SEE TUBERCULO SIS INTRADERM AL PURE TONE 96848 JEANNINE JEANNINE 2 SEE SEE AUDIOMETR Y AIR ONLY BLOOD 05711 JEANNINE JEANNINE COUNT 2 SEE SEE COMPLETE AUTO&[place] [address] SHEFALIKAYLI MCDONOUGH TRIIODOTH 2 [facility] [place] [place] [address] MAGNOLIACLARE SHARONDA THYROID 2 [facility] [place] [address] SHEFALIBALACLARE SHARONDA THYROXINE 2 [facility] TOTAL [facility] LIPID 71385 SHEFALIBALACLARE MEEHANBALACLARE PANEL [address] [place] [address] GLUCOSE 83512 SHEFALIBALACLARE SHARONDA QUANTITAT 2 [facility] VALENTINE BLOOD [facility] XCPT REAGENT STRIP URNLS DIP 18012 JEANNINE JEANNINE 2 SEE SEE STICK/TAB LET RGNT NON-AUTO W/O MICRSCP INJ J1055 MARI GUERRA MDRXYPRGE 2 [facility] SHARONDA MCDONOUGH CNTRACPT USE 150 MG INJ J1055 MARI GUERRA MDRXYPRGE 2 [facility] ACTAT SHARONDA MCDONOUGH CNTRACPT USE 150 MG IAADIADOO 81073 DUDYCZ-ACEVEDO DUDYCZ-ACEVEDO 2 LICZ MERLIN LICZ MERLIN STREPTOCO CCUS GROUP A INJ J1055 MARI GUERRA MDRXYPRGE 2 [facility] SHARONDA MCDONOUGH CNTRACPT USE 150 MG INJ J1055 MARI GUERRA MDRXYPRGE 1 [facility] SHARONDA MCDONOUGH CNTRACPT USE 150 MG IAADIADOO 42603 PHYSICIAN DUCHELSIECZ-ACEVEDO 1 S FOR LICZ [facility] STREPTOCO CHILDREN CCUS GROUP A IIV3 88032 PHYSICIAN LASHANDA VACCINE 1 S FOR [facility] SPLIT CHILDREN VIRUS 0.5 ML DOSAGE IM USE INJ J1055 MARI GUERRA MDRXYPRGE 1 [facility] ACTAT SHARONDA MCDONOUGH CNTRACPT USE 150 MG BLOOD 89523 MARI GUERRA COUNT 1 [facility] HEMOGLOBI [facility] N SHARONDA MCDONOUGH URINE 56592 MARI GUERRA 1 [facility] VISUAL SHEFALIKAYLI MCDONOUGH COLOR CMPRSN METHS BLOOD 09506 PHYSICIAN LINDA COUNT 1 S FOR LICZ [facility] COMPLETE CHILDREN AUTO&[place] [address] PHYSICIAN PHYSICIAN THYROID 1 S FOR S FOR STIMULATI CHILDREN CHILDREN NG HORMONE TSH PURE TONE 74622 PHYSICIAN LETIACEVEDO 1 S FOR LICZ MERLIN AUDIOMETR CHILDREN Y AIR ONLY SKIN TEST 83578 PHYSICIAN LINDA 1 S FOR LICZ MER[facility] TUBERCULO CHILDREN SIS INTRADERM AL SERVICES 21083 PHYSICIAN LINDA PROVIDED 1 S FOR LICZ [facility]LIN OFFICE CHILDREN OTH/THN REG SCHED HOURS EXC B9 52097 SHARONDA MCDONOUGH LESION 1 [facility] MEDICAL MRGN XCP CENTER CENTER SK TG T/A/L >4.0 CM EXC B9 21142 SHARONDA HAMLIN NORMA LESION 1 [facility] XCP RELIGION SK TG HOSP T/A/L 3.1-4.0 CM RINGERS J7120 SHARONDA MCDONOUGH LACTATE 1 [facility] MEDICAL INFUSION CENTER CENTER UP TO 1000 CC INJECTION J2250 SHARONDA MCDONOUGH 1 [facility] MIDAZOLAM CENTER CENTER HCL PER 1 MG INJECTION J0690 SHARONDA MCDONOUGH [address] [place] [address] CEFAZOLIN CENTER CENTER SODIUM 500 MG INJECTION J3010 SHARNODA MCDONOUGH FENTANYL 1 [facility] CITRATE CENTER CENTER 0.1 MG ANES 86482 SHARONDA VALDEZ LOAIZA INTEG 1 [facility] EXTREMITI TAFT ES ANT INC TRUNK & PERINEUM NOS URINE 62643 SHARONDA MCDONOUGH 1 MEDICAL MEDICAL TEST CENTER CENTER VISUAL COLOR CMPRSN METHS LEVEL III 27708 SHARONDA MCDONOUGH SURG 1 [facility] PATHOLOGY CENTER CENTER GROSS&KHUSHI ROSCOPIC EXAM IAADIADOO 11716 PHYSICIAN EMILYCZ-ACEVEDO 1 S FOR LICZ [facility] INFLUENZA CHILDREN IAADIADOO 82548 PHYSICIAN DANIELDYCZ-ACEVEDO 1 S FOR LICZ [facility] STREPTOCO CHILDREN CCUS GROUP A CUL BACT 74693 [facility] XCPT 1 [facility] URINE CENTER CENTER BLOOD/STO OL AEROBIC ISOL BLOOD 14178 PHYSICIAN DANIELDYCZ-ACEVEDO COUNT 1 S FOR LICZ [facility] COMPLETE CHILDREN AUTO&AUTO DIFRNTL WBC SERVICES 01095 PHYSICIAN DANIELDYCZ-ACEVEDO PROVIDED 1 S FOR LICZ [facility]LIN OFFICE CHILDREN OTH/THN REG SCHED HOURS SERVICES 79840 PHYSICIAN DANIELDYCZ-ACEVEDO PROVIDED 1 S FOR LICZ [facility] OFFICE CHILDREN [place] [address] SHARONDA MCDONOUGH EXTREMITY 1 [facility] MEDICAL NON-VASC CENTER CENTER REAL-TIME IMG LMTD BLOOD 81620 PHYSICIAN DUDYCZ-ACEVEDO COUNT 1 S FOR LICZ [facility]LIN COMPLETE CHILDREN AUTO&AUTO DIFRNTL WBC SERVICES 13567 PHYSICIAN DANIELDYCZ-ACEVEDO PROVIDED 1 S FOR LICZ MERLIN OFFICE CHILDREN OTH/THN REG SCHED HOURS IAADIADOO 80419 PHYSICIAN DANIELDYCZ-ACEVEDO 1 S FOR LICZ MRELIN STREPTOCO CHILDREN CCUS GROUP A IAADIADOO 57644 PHYSICIAN DANIELDYCZ-ACEVEDO 1 S FOR LICZ [facility] STREPTOCO CHILDREN CCUS GROUP A BLOOD 70189 PHYSICIAN DUDYCZ-ACEVEDO COUNT 1 S FOR LICZ [facility]LIN COMPLETE CHILDREN AUTO&AUTO DIFRNTL WBC IAADIADOO 64023 PHYSICIAN DUDYCZ-ACEVEDO 1 S FOR LICZ [facility] INFLUENZA CHILDREN SERVICES 53434 PHYSICIAN DUDYCZ-ACEVEDO PROVIDED 1 S FOR LICZ MERLIN OFFICE CHILDREN OTH/THN REG SCHED HOURS IAADIADOO 73095 PHYSICIAN LASHANDA 1 S FOR [facility] STREPTOCO CHILDREN CCUS GROUP A US PELVIC 28933 SHARONDA GIRON 0 DEN NONOBSTET RADIOLOGY TERESA PLLC REAL-TIME IMAGE COMPLETE SERVICES 74605 PHYSICIAN JEANNINE PROVIDED 0 S FOR ROMAN OFFICE CHILDREN OTH/THN REG SCHED HOURS IIV3 58669 PHYSICIAN JEANNINE VACCINE 0 S FOR ROMAN SPLIT CHILDREN VIRUS 0.5 ML DOSAGE IM USE HEPA 79550 PHYSICIAN JEANNINE VACCINE 2 0 S FOR ROMAN DOSE CHILDREN SCHEDULE PED/ADOLE SC IM USE CULTURE 15573 SHARONDA MCDONOUGH BACTERIAL [address] [place] [address] QUANTTATI VE COLONY COUNT URINE URINE 93847 PHYSICIAN JEANNINE 0 S FOR ROMAN TEST CHILDREN VISUAL COLOR CMPRSN METHS URNLS DIP 00698 PHYSICIAN JEANNINE 0 S FOR ROMAN STICK/TAB CHILDREN LET RGNT NON-AUTO W/O MICRSCP RADEX 55891 SHARONDA CELAYA ELBOW 0 [place] COMPLETE RADIOLOGY MINIMUM 3 PLLC VIEWS SKIN TEST 39117 PHYSICIAN EMILYCZ-ACEVEDO 0 S FOR LICZ, TUBERCULO CHILDREN NATALY SIS I INTRADERM AL LALA 95648 PHYSICIAN MILDRED-ACEVEDO VACCINE 0 S FOR LICZ, LIVE FOR CHILDREN NATALY SUBCUTANE I OUS USE PURE TONE 02868 PHYSICIAN DUDYCZ-ACEVEDO 0 S FOR LICZ, AUDIOMETR [place] [address] PHYSICIAN MILDRED-ACEVEDO THYROID 0 S FOR LICZ, STIMULATI CHILDREN NATALY NG I HORMONE TSH BLOOD 16380 PHYSICIAN DUDYCZ-ACEVEDO COUNT 0 S FOR LICZ, COMPLETE CHILDREN NATALY AUTO&AUTO I DIFRNTL WBC RADEX 49685 SHARONDA VANEGAS FOREARM 2 0 [facility]UCE A VIEWS RADIOLOGY PLLC RADEX 90889 SHARONDA VANEGAS WRIST 0 BRU[facility] A COMPLETE RADIOLOGY MINIMUM 3 PLLC VIEWS RADEX 32120 SHARONDA MCDONOUGH SPINE [address] [place] [address] [facility] STANDING SCOLIOSIS SPMTRY 53709 PHYSICIAN JEANNINE, W/VC 9 S FOR THU EXPIRATOR CHILDREN Y PETER W/WO MXML VOL VNTJ IMMUNOASS 20258 PHYSICIAN DAVONTE PAEZ 9 S FOR THU INFECTIOU CHILDREN S AGENT ANTIBODY AMINTA NOS IAADIADOO 19806 PHYSICIAN JEANNINE, 9 S FOR THU INFLUENZA CHILDREN BRNCDILAT 45999 PHYSICIAN LASHANDA, RSPSE 9 S FOR LYNNE SPMTRY CHILDREN PRE&POST- BRNCDILAT ADMN SPMTRY 76972 PHYSICIAN JEANNINE, W/VC 9 S FOR THU EXPIRATOR CHILDREN Y PETER W/WO MXML VOL VNTJ SERVICES 49953 PHYSICIAN JEANNINE, PROVIDED 9 S FOR DANIEL S OFFICE CHILDREN OTH/THN REG SCHED HOURS SERVICES 45610 PHYSICIAN LASHANDA, PROVIDED 9 S FOR LYNNE OFFICE CHILDREN OTH/THN REG SCHED HOURS IAADIADOO 76274 PHYSICIAN LASHANDA, 9 S FOR LYNNE INFLUENZA CHILDREN BLOOD 07209 PHYSICIAN LASHANDA, COUNT 9 S FOR LYNNE COMPLETE CHILDREN AUTO&AUTO DIFRNTL WBC IAADIADOO 73742 PHYSICIAN JEANNINE, 9 S FOR DANIEL S INFLUENZA CHILDREN IIV3 69173 PHYSICIAN JEANNINE, VACCINE 9 S FOR DANIEL S SPLIT CHILDREN VIRUS 0.5 ML DOSAGE IM USE IMMUNOASS 35375 PHYSICIAN PAEZ AY 9 S FOR THU INFECTIOU CHILDREN S [place] [address] PHYSICIAN PAEZ THYROID 9 S FOR THU STIMULATI CHILDREN NG HORMONE TSH BLOOD 50605 PHYSICIAN JEANNINE, COUNT 9 S FOR THU COMPLETE CHILDREN AUTO&AUTO DIFRNTL WBC URINLS 60265 PHYSICIAN JEANNINE DIP 9 S FOR THU STICK/TAB CHILDREN LET REAGNT NON-AUTO MICRSCPY HEPA 45219 PHYSICIAN PAEZ VACCINE 2 9 S FOR THU DOSE CHILDREN SCHEDULE PED/ADOLE SC IM USE SKIN TEST 71697 PHYSICIAN JEANNINE, 9 S FOR THU TUBERCULO CHILDREN SIS INTRADERM AL PURE TONE 16325 PHYSICIAN JEANNINE, 9 S FOR THU AUDIOMETR CHILDREN Y AIR ONLY 4VHPV 86930 PHYSICIAN LASHANDA, VACCINE 3 9 S FOR LYNNE DOSE CHILDREN SCHEDULE FOR IM USE SERVICES 33688 PHYSICIAN LASHANDA, PROVIDED 9 S FOR LYNNE OFFICE CHILDREN OTH/THN REG SCHED HOURS IMMUNOASS 84969 PHYSICIAN JEANNINE, AY 9 S FOR DANIEL S INFECTIOU CHILDREN S AGENT ANTIBODY AMINTA NOS LAIV3 19270 PHYSICIAN JEANNINE, VACCINE 8 S FOR THU LIVE FOR CHILDREN INTRANASA L USE SERVICES 28419 PHYSICIAN JEANNINE, PROVIDED 8 S FOR DANIEL S OFFICE CHILDREN OTH/THN REG SCHED HOURS IMMUNOASS 92223 PHYSICIAN JEANNINE, AY 8 S FOR DANIEL S INFECTIOU CHILDREN S AGENT ANTIBODY AMINTA NOS URINLS 19820 PHYSICIAN JEANNINE, DIP 8 S FOR DANIEL S STICK/TAB CHILDREN LET REAGNT NON-AUTO MICRSCPY RADEX 23554 SHARONDA MCDONOUGH FOOT [address] [place] [address] MINIMUM 3 VIEWS RADEX 56642 SHARONDA MCDONOUGH SPINE [address] [place] [address] THORACOLM [facility] BR STANDING SCOLIOSIS COLLECTIO 18001 SHARONDA MCDONOUGH N VENOUS [address] [place] [address] BLOOD [facility] VENIPUNCT URE GLUCOSE 49840 SHARONDA MCDONOUGH QUANTITAT [address] [place] [address] VALENTINE BLOOD [facility] XCPT REAGENT STRIP LIPID 86292 SHARONDA MCDONOUGH PANEL [address] [place] [address] [place] [address] SHARONDA MCDONOUGH THYROID [address] [place] [address] STIMULATI [facility] NG HORMONE TSH BLOOD 27565 PHYSICIAN LASHANDA, COUNT 8 S FOR LYNNE COMPLETE CHILDREN AUTO&AUTO DIFRNTL WBC URINLS 00248 PHYSICIAN LASHANDA, DIP 8 S FOR LYNNE STICK/TAB CHILDREN LET REAGNT NON-AUTO MICRSCPY SKIN TEST 81497 PHYSICIAN LASHANDA, 8 S FOR LYNNE TUBERCULO CHILDREN SIS INTRADERM AL PURE TONE 27809 PHYSICIAN LASHANDA, 8 S FOR LYNNE AUDIOMETR CHILDREN Y AIR ONLY RADEX 26131 SHARONDA CELAYA SPINE 8 [facility] 2 VIEWS PLL RADEX 26934 [facility] SPINE [address] [place] [address] LUMBOSACR [facility] AL MINIMUM 4 VIEWS 4VHPV 15116 PHYSICIAN JEANNINE, VACCINE 3 8 S FOR DANIEL S DOSE CHILDREN SCHEDULE FOR IM USE SERVICES 49860 PHYSICIAN JEANNINE PROVIDED 8 S FOR DANIEL S OFFICE CHILDREN OTH/THN REG SCHED HOURS RADEX 34618 [facility] SPINE [address] [place] [address] CERVICAL [facility] 2 OR 3 VIEWS RADEX 87396 [facility] SPINE [address] [place] [address] THORACIC [facility] 2 VIEWS TDAP 81510 PHYSICIAN LASHANDA, VACCINE 7 8 S FOR LYNNE YRS/> IM CHILDREN 4VHPV 97220 PHYSICIAN LASHANDA, VACCINE 3 8 S FOR LYNNE DOSE CHILDREN SCHEDULE FOR IM USE MCV4 53371 PHYSICIAN LASHANDA, MENACWY 8 S FOR LYNNE CONJ VACC CHILDREN GRPS [id number] IM USE Encounters Encounter Start End Date Code Location Performer Type Date PERIODIC 00568 MARI GUERRA PREVENTIV 5 5 [facility] PATIENT SHARONDA MCDONOUGH 18-39 YRS OFFICE 99266 PHYSICIAN LASHANDA OUTPATIEN 5 5 S [facility] T VISIT CHILDREN 15 MINUTES OFFICE 18860 PHYSICIAN LASHANDA OUTPATIEN 5 5 S [facility] T VISIT CHILDREN 15 MINUTES OFFICE 84859 PHYSICIAN MAGDI OUTPATIEN 4 4 S FOR CHR T VISIT CHILDREN 15 MINUTES OFFICE 16749 PHYSICIAN FAIRBANKS OUTPATIEN 4 4 S FOR CHR T VISIT CHILDREN 15 MINUTES OFFICE 85624 MARI GUERRA OUTPATIEN 4 4 [facility] T VISIT [facility] PERIODIC 90807 LASHANDA LASHANDA PREVENTIV 4 4 [facility] E MED EST PATIENT 12 OFFICE 79143 MARI GUERRA OUTPATIEN 4 4 [facility] T VISIT [facility] OFF[facility] 00247 LASHANDA LASHANDA OUTPATIEN 4 4 [facility] T VISIT 15 MINUTES OFFICE 94475 MAIR GUERRA OUTPATIEN 4 4 [facility] T VISIT [facility] 10 SHARONDA MCDONOUGH [facility] [place] - 3 3 [facility] OUTPATIEN CENTER T OFFICE 69044 DUDYCZ-ACEVEDO DUDYCZ-ACEVEDO OUTPATIEN 3 3 [facility] LICZ MERLIN T VISIT 15 MINUTES OFFICE 10350 DUDYCZ-ACEVEDO DUDYCZ-ACEVEDO OUTPATIEN 3 3 LICZ [facility]LIN LICZ MERLIN T VISIT 15 MINUTES OFFICE 39469 LASHANDA LASHANDA OUTPATIEN 3 3 [facility] T VISIT 15 MINUTES OFFICE 91900 JEANNINE JEANNINE OUTPATIEN 3 3 SEE SEE T VISIT 15 MINUTES OFFICE 55248 LASHANDA LASHANDA OUTPATIEN 3 3 [facility] T VISIT 15 MINUTES OFFICE 77081 LASHANDA LASHANDA OUTPATIEN 3 3 [facility] T VISIT 15 MINUTES [facility] [place] - [facility] 3 [facility] OUT[facility] CENTER T OFFICE 66264 JEANNINE JEANNINE OUTPATIEN 3 3 SEE SEE T VISIT 15 MINUTES OFFICE 12503 DUDYCZ-ACEVEDO DUDYCZ-ACEVEDO OUTPATIEN 3 3 LICZ [facility] LICZ MERLIN T VISIT 15 MINUTES PERIODIC 68541 MARI GUERRA PREVENTIV 3 3 [facility] SHARONDA MCDONOUGH 12-17YRS OFFICE 59046 MARI GUERRA OUTPATIEN 3 3 [facility] T VISIT [facility] 10 HIGH LJ HIGH LJ MINUTES OFFICE 39887 LASHANDA LASHANDA OUTPATIEN 3 3 MU [facility] T VISIT 15 MINUTES OFFICE 97155 MARI GUERRA OUTPATIEN 3 3 [facility] T VISIT [facility] 10 SHARONDA MCDONOUGH MINUTES OFFICE 53074 LASHANDA LASHANDA OUTPATIEN 3 3 [facility] T VISIT 15 MINUTES OFFICE 48531 LASHANDA LASHANDA OUTPATIEN 3 3 [facility] T VISIT 15 MINUTES OFFICE 43001 MARI GUERRA OUTPATIEN 2 2 [facility] T VISIT [facility] 10 SHARONDA MCDONOUGH MINUTES OFFICE 87868 JEANNINE PAEZ OUTPATIEN 2 2 [facility] T VISIT 15 MINUTES [facility] [place] [facility] 2 [facility] T OFFICE 70995 ADAN AAR ADAN AAR OUTPATIEN 2 2 T VISIT 10 MINUTES OFFICE 68817 MARI GUERRA OUTPATIEN 2 2 [facility] T VISIT [facility] 15 HIGH LJ HIGH LJ MINUTES OFFICE 39690 LASHANDA LASHANDA OUTPATIEN 2 2 [facility] T VISIT 15 MINUTES [facility] [place] - 2 2 [facility] CENTER T OFFICE 07528 DUDYCZ-ACEVEDO DUDYCZ-ACEVEDO OUTPATIEN 2 2 LICRamirez MERLIN JONOZ MERLIN T VISIT 15 MINUTES OFFICE 90363 MARI GUERRA OUTPATIEN 2 2 [facility] T VISIT [facility] 10 SHARONDA MCDONOUGH MINUTES OFFICE 42228 LASHANDA LASHANDA OUTPATIEN 2 2 [facility] T VISIT 15 MINUTES [facility] [place] - 2 2 [facility] OUT[facility] C[facility] T OFFICE 14796 FITZ BYRNES OUTPATIEN 2 2 JAM JAM T NEW 30 MINUTES OFFICE 15212 DUDYCZ-ACEVEDO DUDYCZ-ACEVEDO OUTPATIEN 2 2 LICZ [facility] LICZ [facility]LIN T VISIT 15 MINUTES [facility] [place] - [facility] 2 [facility] C[facility] T OFFICE 57470 LASHANDA LASHANDA OUTPATIEN 2 2 [facility] T VISIT 15 MINUTES PERIODIC 62742 JEANNINE JEANNINE PREVENTIV 2 2 SEE SEE E MED EST PATIENT [facility] [place] - 2 2 MEDICAL OUTPATIEN CENTER T OFFICE 45347 MARI GUERRA OUTPATIEN 2 2 [facility] T VISIT HEALTH HEALTH MINUTES SHARONDA MCDONOUGH PERIODIC 24297 MARI GUERRA PREVENTIV 2 2 [facility] E MED EST [facility]ALTH PATIENT SHARONDA MCDONOUGH S OFFICE 37094 LASHANDA LASHANDA OUTPATIEN 2 2 [facility] T VISIT 15 MINUTES OFFICE 23797 MARI GUERRA OUTPATIEN 2 2 [facility] T VISIT HEALTH HEALTH 10 SHARONDA MCDONOUGH MINUTES OFFICE 59812 DUDYCZ-ACEVEDO DUDYCZ-ACEVEDO OUTPATIEN 2 2 L[facility]Z [facility] LICZ [facility]LIN T VISIT 15 MINUTES OFFICE 91702 MARI GUERRA OUTPATIEN 2 2 [facility] T VISIT HEALTH HEALTH 10 SHARONDA MCDONOUGH MINUTES OFFICE 44450 MARI MARI OUTPATIEN 1 1 [facility] T VISIT HEALTH HEALTH 10 [place] MINUTES OFFICE 85452 PHYSICIAN MILDRED-ACEVEDO OUTPATIEN 1 1 S FOR LICZ [facility]LIN T VISIT CHILDREN 15 MINUTES OFFICE 27452 PHYSICIAN LASHANDA OUTPATIEN 1 1 S FOR [facility]H T VISIT CHILDREN 15 MINUTES PERIODIC 79756 MARI GUERRA PREVENTIV 1 1 [facility] E [facility] PATIENT SHARONDA MCDONOUGH 12-17YRS PERIODIC 18361 PHYSICIAN LINDA PREVENTIV 1 1 S FOR LICZ [facility] E MED EST CHILDREN PATIENT 12-17YRS OFFICE [address] OUTPATIEN 1 1 MEDICAL T VISIT CENTER 15 [facility] [place] - 1 1 MEDICAL OUTPATIEN CENTER [facility] [place] - 1 1 MEDICAL OUTPAT[facility]EN CENTER OFFICE [address] OUTPATIEN 1 1 MED[facility] [place] - 1 1 [facility] OUT[facility]EN CENTER OFFICE 66996 PHYSICIAN DUDYCZ-ACEVEDO OUTPATIEN 1 1 S FOR LICZ [facility]LIN T VISIT CHILDREN 15 MINUTES OFFICE 12486 PHYSICIAN MILDRED-ACEVEDO OUTPATIEN 1 1 S FOR LICZ MERLIN T VISIT CHILDREN 15 MINUTES OFFICE 21275 PHYSICIAN LASHANDA OUTPATIEN 1 1 S FOR MUH T VISIT CHILDREN 15 MINUTES OFFICE 05487 PHYSICIAN LASHANDA OUTPATIEN 1 1 S FOR [facility] T VISIT CHILDREN 15 MINUTES OFFICE 57800 PHYSICIAN LASHANDA OUTPATIEN 0 0 S FOR MUH T VISIT CHILDREN 15 MINUTES [facility] [place] [facility] 0 [facility] [place] - 0 0 MED[facility] OUTPAT[facility]EN CENTER T EMERGENCY 17116 FAMILIA KANIKA ANT 0 0 EMERGENCY DEPARTMEN SERVICES T VISIT MODERATE SEVERITY [facility] [place] - [facility] 0 [facility] T PERIODIC 71738 PHYSICIAN LINDA PREVENTIV 0 0 S FOR LICZ, E MED EST CHILDREN NATALY PATIENT I 12-17YRS OFFICE 83802 PHYSICIAN NADINE PAEZPATIGREGORY 0 0 S FOR THU T VISIT CHILDREN 15 MINUTES [facility] [place] - [facility] 0 [facility] T [facility] [place] [facility] 0 [facility] T EMERGENCY 68573 [place] 0 0 MEDICAL DEPARTMEN CENTER T VISIT MODERATE SEVERITY OFFICE 65482 PHYSICIAN DAYA PAEZ 0 0 S FOR THU T VISIT CHILDREN 15 MINUTES [facility] [place] [facility] 0 [facility] T OFFICE 38256 PHYSICIAN JEANNINE OUTPATIEN 9 9 S FOR THU T VISIT CHILDREN 15 MINUTES OFFICE 60148 PHYSICIAN LASHANDA OUTPATIEN 9 9 S FOR LYNNE T VISIT CHILDREN 15 MINUTES OFFICE 14936 PHYSICIAN JEANNINE OUTPATIEN 9 9 S FOR THU T VISIT CHILDREN 15 MINUTES OFFICE 10661 PHYSICIAN JEANNINE OUTPATIEN 9 9 S FOR DANIEL S T VISIT CHILDREN 15 MINUTES OFFICE 46707 PHYSICIAN JEANNINE OUTPATIEN 9 9 S FOR DANIEL S T VISIT CHILDREN 10 MINUTES OFFICE 59183 PHYSICIAN JEANNINE OUTPATIEN 9 9 S FOR THU T VISIT CHILDREN 15 MINUTES PERIODIC 95464 PHYSICIAN JEANNINE PREVENTIV 9 9 S FOR THU E MED EST CHILDREN PATIENT 12-17YRS OFFICE 91394 PHYSICIAN LASHANDA, OUTPATIEN 9 9 S FOR LYNNE T VISIT CHILDREN 15 MINUTES OFFICE 24639 PHYSICIAN LASHANDA, OUTPATIEN 9 9 S FOR LYNNE T VISIT CHILDREN 15 MINUTES OFFICE 11420 [facility] OUTPATIEN 9 9 [facility] [employer] [facility] ACCT OFFICE 44183 PHYSICIAN DAYA PAEZ 9 9 S FOR DANIEL S T VISIT CHILDREN 15 MINUTES OFFICE 27170 PHYSICIAN JEANNINE OUTSHANITA 8 8 S FOR THU T VISIT CHILDREN 15 MINUTES [facility] [place] [facility] T EMERGENCY 36459 FAMILIA CONRAD 8 8 EMERGENCY [facility] T [facility]ISIT [facility] [place] - [facility] 8 [facility] T OFFICE 66054 PHYSICIAN LASHANDA, OUTPATIEN 8 8 S FOR LYNNE T VISIT CHILDREN 15 MINUTES OFFICE 01566 PHYSICIAN DAYA PAEZ 8 8 S FOR DANIEL S T VISIT CHILDREN 15 MINUTES [facility] [place] [facility] T OFFICE 04364 PHYSICIAN DAYA PAEZ 8 8 S FOR DANIEL S T VISIT CHILDREN 15 MINUTES [facility] [place] [facility] T OFFICE 43698 PHYSICIAN LASHANDA OUTPATIEN 8 8 S FOR LYNNE T VISIT CHILDREN 15 MINUTES OFFICE 54603 PHYSICIAN LASHANDA OUTPATIEN 8 8 S FOR LYNNE T VISIT CHILDREN 15 MINUTES
--- OUTSIDE RECORDS SUMMARY | 2017-01-28 12:43 | External Medical Summary Rpt ---
Author Author , Organization [employer] Address Unknown Phone Unavailable Care Team Providers Care Blade Sharpener Name Role Phone PANTAMMYAnne Marie NORMA, BOUBACAR [...] EMERGENCY Unavailable Unavailable SERVICES, [facility] [email or web address], Unavailable Unavailable [employer] COURTNEY LOAIZA, COURTNEY LOAIZA Unavailable Unavailable [facility], Unavailable Unavailable [facility] Unavailable Unavailable [facility]ILDREN, [facility] Unavailable Unavailable [facility] Unavailable Unavailable [facility], [facility] Unavailable [facility]available [facility] Unavailable Unavailable [facility] Unavailable Unavailable [facility] Unavailable [facility]available [facility] Unavailable Unavailable [facility] Unavailable Unavailable [facility] Unavailable Unavailable [facility] Unavailable [facility]available [facility] YOMI LORRIE, YOMI Unavailable Unavailable LORRIE [...] AL FOR PHARYNGITIS CHILDREN V2541 SURVEILLANC 01-05-2015 [facility] E [facility] PRESCRIBED [place] CONTRACEPT PILL V2689 OTHER 01-05-2015 [facility] SPECIFIED HEALTH PROCREATIVE [place] MANAGEMENT 463 ACUTE 01-03-2015 [facility] TONSILLITIS FOR CHILDREN 7245 UNSPECIFIED 12-14-2014 [facility] BACKACHE FOR CHILDREN 91463 MIGRAINE 10-03-2014 [facility]ANS W/O AURA FOR W/O INTRACT CHILDREN W/O STAT MIGRNOSUS 68906 SPRAIN AND 10-03-2014 [facility]ANS STRAIN OF FOR 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 HAND 462 ACUTE 08-16-2014 [facility] PHARYNGITIS FOR CHILDREN 4659 ACUTE URIS 08-16-2014 [facility] OF FOR UNSPECIFIED CHILDREN SITE 0340 STREPTOCOCC 05-12-2014 [facility]ANS AL SORE FOR THROAT CHILDREN V011 CONTACT 04-08-2014 [facility] WITH OR EXPOSURE TO TUBERCULOSI S V0184 CONTACT OR 04-08-2014 [facility] EXPOSURE TO MENINGOCOCC US V653 DIETARY 04-08-2014 [facility] SURVEILLANC E AND COUNSELING V6541 EXCERCISE 04-08-2014 [facility] COUNSELING V700 ROUTINE 04-08-2014 [facility] GENERAL MEDICAL EXAM@HEALTH CARE FACL V720 EXAMINATION 04-08-2014 [facility] OF EYES AND VISION V7219 OTHER 04-08-2014 [facility] EXAMINATION OF EARS AND HEARING V8554 BODY MASS 04-08-2014 [facility] INDEX PED >/EQUAL TO 95TH % AGE 4660 ACUTE 11-09-2013 [facility] BRONCHITIS 8489 UNSPECIFIED 11-09-2013 [facility] SITE OF SPRAIN AND STRAIN 70166 MASTODYNIA 08-20-2013 [facility] 80345 [place] 08-20-2013 [facility] IN [facility] BREAST CENTER 6119 UN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[facility] DISORDER [facility] 7576 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[facility] CONGENITAL MEDICAL ANOMALIES CENTER OF BREAST 85171 OTHER 08-20-2013 [facility] ABNORMAL MEDICAL FINDING CENTER RADIOLOGICA L EXAM BREAST V725 RADIOLOGICA 08-20-2013 SETTLES II L BRYAN EXAMINATION NEC 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 05152 ASTHMA, 07-03-2013 JEANNINE UNSPECIFIED SEE , UNSPECIFIED STATUS 46912 UNSPECIFIED 06-26-2013 [facility] CONSTIPATIO N 64308 UNSPECIFIED 04-30-2013 [facility] OTALGIA 4779 ALLERGIC 04-30-2013 [facility] RHINITIS CAUSE UNSPECIFIED 87515 OBESITY, 04-17-2013 JEANNINE UNSPECIFIED SEE 93748 UNSPECIFIED 04-17-2013 JEANNINE VAGINITIS SEE AND VULVOVAGINI TIS 00497 SCOLIOSIS , 04-17-2013 JEANNINE IDIOPATHIC SEE 2662 OTHER 01-14-2013 [facility] B-COMPLEX HEALTH DEFICIENCIYuliya Walker V2549 SURVEILLANC 01-14-2013 [facility] E OT PREV HEALTH PRSC SH[facility]ONDA CONTRACEPT METHOD 9100 FCE 01-07-2013 [facility] NCK&SCLP NO CENTRAL EYE HIGH LJ ABRAS/FRIC BURN W/O INF 9597 INJURY 01-07-2013 [facility] OTHER&UNSPE CENTRAL CIFIED KNEE HIGH LJ LEG ANKLE&FOOT 7061 OTHER ACNE 12-19-2012 [facility] 920 CONTUSION 11-02-2012 D[facility]-INDU OF FACE CZ MERLIN SCALP AND NECK EXCEPT EYE 69894 ESOPHAGEAL 09-18-2012 [facility] REFLUX 4658 ACUTE URIS 09-01-2012 L[facility] MU OF OTHER MULTIPLE SITES 490 BRONCHITIS 09-01-2012 [facility] MU NOT SPECIFIED ACUTE OR CHRONIC 3671 MYOPIA 08-20-2012 HIMA JAM 83861 DYSPHAGIA 07-10-2012 JEANNINE UNSPECIFIED ROMAN 7840 HEADACHE 06-20-2012 [facility] [place] [address] ABDOMINAL 06-13-2012 [facility] MU PAIN, UNSPECIFIED SITE 4619 ACUTE 04-25-2012 [facility] SINUSITIS, UNSPECIFIED 64355 PAIN IN 04-23-2012 [facility] MEDICAL LOWER LEG CENTER 7295 PAIN IN 03-25-2012 [facility] SOFT MEDICAL TISSUES OF EMPIRE LIMB 8448 SPRAIN&STRA 03-25-2012 [facility] IN OTHER MEDICAL SPECIFIED CENTER COREY SITES KNEE&LEG 41774 UNSPECIFIED 03-25-2012 [facility] SITE OF MEDICAL ANKLE CENTER COREY SPRAIN AND STRAIN 1121 CANDIDIASIS 02-14-2012 [facility] VUL[facility] HEALTH AND VAGINA [facility] V0481 NEED 05-11-2011 [facility]ANS PROPHYLACTI FOR C CHILDREN VACCINATION &INOCULATIO N FLU V2502 GENERAL 03-14-2011 [facility] CNSL HEALTH INITIATION [facility] CONTRACEPT MEASURES 7062 SEBACEOUS 02-14-2011 [facility] CYST MEDICAL EMPIRE INC 6829 CELLULITIS 01-07-2011 [facility] AND [facility]ESS [facility] UNSPECIFIED SITE 74370 LEUKOCYTOPE 01-06-2011 PHYSICIANS TAZ FOR UNSPECIFIED CHILDREN 6822 CELLULITIS 12-29-2010 [facility] AND ABSCESS MEDICAL OF TRUNK CENTER 7822 LOCALIZED 12-29-2010 [facility] SUPERFICIAL MEDICAL SWELLING EMPIRE MASS OR LUMP 4871 INFLUENZA 11-20-2010 [facility]ANS WITH OTHER FOR RESPIRATORY CHILDREN MANIFESTATI ONS V0389 NEED PROPH 05-17-2010 [facility]ANS VACC FOR AGAINST OTH CHILDREN SPEC VACC 57858 PAIN IN 05-11-2010 [facility] MED[facility] UPPER ARM CENTER 9593 INJURY 05-11-2010 [facility] OTHER&UNSPE MEDICAL CIFIED EMPIRE ELBOW FOREARM&WRI ST E8859 FALL FROM 05-11-2010 [place] OTHER EMERGENCY SLIPPING SERVICES TRIPPING OR STUMBLING V054 NEED PROPH 03-08-2010 PHYSICIANS VACC&INOCUL FOR AT AGAINST CHILDREN VARICELLA 49076 PAIN IN 11-15-2009 [facility] MEDICAL FOREARM CENTER 11824 SPRAIN AND 11-14-2009 [facility] OF EMERGENCY UNSPECIFIED SERVICES SITE OF ASSOCIATES WRIST V6759 OTHER 10-17-2009 [facility] MED[facility] EXAM[facility]ATION [facility] OTHER 06761 EXTRINSIC 07-20-2009 PHYSICIANS ASTHMA, FOR WITH CHILDREN EXACERBATIO N 83573 UNSPECIFIED 06-27-2009 [facility]ANS VIRAL FOR INFECTION CHILDREN IN CCE & UNS SITE V202 ROUTINE 05-20-2009 PHYSICIANS INFANT OR FOR CHILD CHILDREN HEALTH CHECK V059 NEED PROPH 03-04-2009 PHYSICIANS VACC&INOCUL FOR [place] 65951 DIARRHEA 02-11-2009 [facility] FOR CHILDREN 55927 CONTACT 12-13-2008 [facility] DERMATITIS& HEALTH OTHER CENTRAL [facility] DUE BANK ACCT TO SUNBURN 9492 BLISTERS 12-11-2008 PHYSIC[facility]ANS W/EPIDERMAL FOR LOSS DUE CHILDREN BURN UNSPEC SITE 7048 OTHER 06-30-2008 [facility] SPECIFIED FOR DISEASE OF CHILDREN HAIR&HAIR FOLLICLES 47541 ACUTE 06-16-2008 [facility]ANS GASTRITIS FOR WITHOUT CHILDREN MENTION OF HEMORRHAGE 5997 HEMATURIA 06-16-2008 [facility] FOR [facility]EN 12822 CONTUSION 05-31-2008 [facility] 7231 CERVICALGIA 12-02-2007 [...] MM 5% AD CA GE RE L VT 00 07 07 30 30 TO 10 ID Ac NO 59 -1 -1 .0 TA 03 RE ti CY 15 9- 9- 00 L 98 ES ve CL 69 20 20 PH 6 IN 40 11 11 AR MU E 1 MA BURNS 50 CY MM AD MG CA RE CA PS UL E VT 00 03 06 30 30 TO 97 [...] 0 10 5 PI 53 DU Ac VT 00 -2 -2 .0 KE 04 DY [...] MM 5% AD CA GE RE L VT 00 03 03 30 30 TO 97 ID Ac NO 59 -0 -0 .0 TA 74 RE ti CY 15 4- 4- 00 L 42 ES ve CL 69 20 20 PH IN 40 11 11 AR MU E 1 MA BURNS 50 CY MM AD MG CA RE CA PS UL E VT 00 12 12 30 30 TO 96 ID Ac NO 59 -3 -3 .0 TA 46 RE ti CY 15 1- 1- 00 L 55 ES ve CL 69 20 20 PH IN 55 10 10 AR MU E 0 MA BURNS 10 CY MM 0 AD MG CA RE CA PS UL E VT 00 11 11 30 30 TO 95 [...] MM 5% AD CA GE RE L VT 00 10 10 30 30 TO 95 ID Ac NO 59 -1 -1 .0 TA 00 RE ti CY 15 5- 5- 00 L 50 ES ve CL 69 20 20 PH IN 55 10 10 AR MU E 0 MA BURNS 10 CY MM 0 AD MG CA RE CA PS UL E VT 00 03 05 30 30 TO 91 [...] MM 5% AD CA GE RE L VT 00 03 03 30 30 TO 91 [...] OU BURNS TL MM ET AD #3 VT 00 08 10 01 30 30 TO [...] KE SH GE CA S L RE VT 00 08 08 00 30 30 TO [...] Procedure DOS Code Location Performer Comment IAADIADOO 39519 PHYSICIAN DANA COLLINS 5 S FOR STREPTOCO CHILDREN CCUS GROUP A SERVICES 40609 PHYSICIAN DANA COLLINS PROVIDED 5 S FOR OFFICE CHILDREN OTH/THN REG SCHED HOURS IADNA 17290 MARI GUERRA CHLAMYDIA [address] [place] [address] TRACHOMAT SHARONDA MCDONOUGH IS AMPLIFIED PROBE TQ CONTRACEP S4993 MARI EWLCH 5 [facility] SHARONDA MCDONOUGH CONTROL IADNA 52509 MARI GUERRA NEISSERIA 5 [facility] GONORRHOE SHARONDA MCDONOUGH AE AMPLIFIED PROBE TQ IAADIADOO 85845 PHYSICIAN LASHANDA 5 S FOR MUH STREPTOCO CHILDREN CCUS GROUP A SERVICES 88801 PHYSICIAN LASHANDA PROVIDED 5 S FOR MUH OFFICE CHILDREN OTH/THN REG SCHED HOURS IAADIADOO 21700 PHYSICIAN FAIRBANKS 4 S FOR CHR INFLUENZA CHILDREN IAADIADOO 49149 PHYSICIAN MAGDI 4 S FOR CHR STREPTOCO CHILDREN CCUS GROUP A CONTRACEP S4993 MARI WELCH 4 [facility] SHARONDA MCDONOUGH CONTROL BLOOD 80964 LASHANDA LASHANDA COUNT 4 [facility] COMPLETE AUTO&AUTO DIFRNTL WBC SKIN TEST 54127 LASHANDA LASHANDA 4 [facility]H MUH TUBERCULO SIS INTRADERM AL PURE TONE 85860 LASHANDA LASHANDA 4 [facility] MU[facility] AUDIOMETR Y AIR ONLY SCREENING 14259 LASHANDA LASHANDA TEST 4 [facility] VISUAL ACUITY QUANTITAT VALENTINE BILAT MCV4 22407 LASHANDA LASHANDA MENACWY 4 [facility] CONJ VACC GRPS ACYW-135 IM USE CONTRACEP S4993 MARI WELCH 4 [facility] SHARONDA MCDONOUGH CONTROL IAADIADOO 86611 LASHANDA LASHANDA 4 [facility] MUH STREPTOCO CCUS GROUP A CONTRACEP S4993 MARI GUERRA TIVE 4 [facility] SHARONDA MCDONOUGH CONTROL US BREAST 25734 SHARONDA MCDONOUGH REAL 3 MEDICAL MEDICAL TIME CENTER CENTER W/IMAGE DOCUMENTA TION URINE 39506 DUDYCZ-ACEVEDO DUDYCZ-ACEVEDO 3 LICZ MERLIN LICZ MERLIN TEST VISUAL COLOR CMPRSN METHS IAADIADOO 29402 LASHANDA LASHANDA 3 [facility] MU[facility] STREPTOCO CCUS GROUP A URNLS DIP 46394 LASHANDA LASHANDA 3 [facility] STICK/TAB LET RGNT NON-AUTO W/O MICRSCP COLLECTIO 92099 SHARONDA MCDONOUGH N VENOUS [address] [place] [address] BLOOD [facility] VENIPUNCT URE RADEX 90145 [facility] MAGNOLIACLARE SPINE [address] [place] [address] THORACOLM EMPIRE CENTER BR STANDING SCOLIOSIS LIPID 37442 SHEFALIBALACLARE MEEHANKAYLI PANEL [address] [place] [address] GLUCOSE 62720 SHEFALIBALACLARE MEEHANBALACLARE QUANTITAT [address] [place] [address] VALENTINE BLOOD [facility] [place] [address] SHEFALIBALACLARE SHARONDA THYROXINE [address] [place] [address] [place] [address] SHARONDA MCDONOUGH THYROID [address] [place] [address] STIMULATI [facility] NG HORMONE TSH IAADIADOO 01493 DUDYCZ-ACEVEDO DUDYCZ-ACEVEDO 3 LICZ MERLIN LICZ MERLIN STREPTOCO CCUS GROUP A INJECTION J1050 MARI GUERRA [address] [place] [address] [facility] SHARONDA E ACETATE 1 MG URINE 40046 MARI GUERRA [address] [place] [address] VISUAL SHARONDA MCDONOUGH COLOR CMPRSN METHS SERVICES 71559 DUDYCZ-ACEVEDO DUDYCZ-ACEVEDO PROVIDED 3 LICZ MERLIN LICZ MERLIN OFFICE OTH/THN REG SCHED HOURS INJECTION J1050 MARI GUERRA [address] [place] [address] SHARONDA E ACETATE 1 MG IAADIADOO 02362 LASHANDA LASHANDA 3 MUH MUH STREPTOCO CCUS GROUP A OPHTH 06099 HIMA JAM HIMA KULWINDER MEDICAL 2 XM&EVAL INTERMEDI ATE NEW PT DETERMINA 45250 HIMA JAM HIMA KULWINDER TION 2 REFRACTIV E STATE INJ J1055 MARI GUERRA MDRXYPRGE [address] [place] [address] ACTAT [facility] CNTRACPT USE 150 MG IADNA 10-30-201 06603 SHEFALIBALACLARE SHARONDA SHEA 2 [facility] MEDICAL SPECIES CENTER CENTER AMPLIFIED PROBE TQ IADNA 46040 SHEFALIBALACLARE SHARONDA CHLAMYDIA 2 [facility] ALLIANCE TRACHOMAT IS AMPLIFIED PROBE TQ IADNA 41021 SHARONDA MEEHANBALACLRAE NEISSERIA 2 [facility] ALLIANCE GONORRHOE AE AMPLIFIED PROBE TQ IADNA NOS 92969 SHARONDA MCDONOUGH 2 [facility] CENTER PROBE TQ EACH ORGANISM CULTURE 01514 SHARONDA MCDONOUGH BACTERIAL [address] [place] [address] QUANTTATI VE COLONY COUNT URINE URNLS DIP 66884 SHARONDA MEEHANKAYLI [address] [place] [address] STICK/TAB CENTER EMPIRE LET REAGENT AUTO MICROSCOP Y BLOOD 52596 DUDYCZ-ACEVEDO DUDYCZ-ACEVEDO COUNT 2 LICZ MERLIN LICZ MERLIN COMPLETE AUTO&AUTO DIFRNTL WBC SERVICES 74379 DUDYCZ-ACEVEDO DUDYCZ-ACEVEDO PROVIDED 2 LICZ MERLIN LICZ MERLIN OFFICE OTH/THN REG SCHED HOURS IAADIADOO 51706 LASHANDA LASHANDA 2 [facility] STREPTOCO CCUS GROUP A SERVICES 72588 LASHANDA LASHANDA PROVIDED 2 [facility] OFFICE OTH/THN REG SCHED HOURS INJ J1055 MARI GUERRA MDRXYPRGE [address] [place] [address] ACTAT [facility] CNTRACPT USE 150 MG IAADIADOO 75226 LASHANDA LASHANDA 2 MUH MUH STREPTOCO CCUS GROUP A PHYSICAL 29781 SHARONDA MCDONOUGH THERAPY 2 [facility] MEDICAL EVALUATIO CENTER EMPIRE N RADEX 79211 SHARONDA PACIFIC PALISADES LAR ANKLE 2 COMPLETE RADIOLOGY MINIMUM 3 PLLC VIEWS RADIOLOGI 24752 [facility] C EXAM 2 KNEE RADIOLOGY COMPLETE PLLC 4/MORE VIEWS KNEE L1810 SHARONDA MCDONOUGH ORTHOSIS [address] [facility] ELASTIC CENTER EMPIRE JOINTS COREY COREY PREFAB CUSTOM FIT ANKLE L4350 SHARONDA MCDONOUGH CONTROL 2 [facility] MEDICAL ORTHOSIS CENTER EMPIRE STIRRUP COREY COREY STYL RIGID PREFAB COLLECTIO 26594 SHARONDA MCDONOUGH N VENOUS [address] [facility] BLOOD EMPIRE CENTER VENIPUNCT URE SKIN TEST 19704 JEANNINE JEANNINE 2 SEE SEE TUBERCULO SIS INTRADERM AL PURE TONE 31142 JEANNINE JEANNINE 2 SEE SEE AUDIOMETR Y AIR ONLY BLOOD 51373 JEANNINE JEANNINE COUNT 2 SEE SEE COMPLETE AUTO&[place] [address] SHEFALIKAYLI MCDONOUGH TRIIODOTH [address] [facility] [place] [address] MAGNOLIACLARE SHARONDA THYROID [address] [facility] [place] [address] SHEFALIBALACLARE SHARONDA THYROXINE [address] [facility] TOTAL [facility] LIPID 77160 SHEFALIBALACLARE MEEHANBALACLARE PANEL [address] [place] [address] GLUCOSE 90424 SHEFALIBALACLARE SHARONDA QUANTITAT [address] [facility] VALENTINE BLOOD [facility] XCPT REAGENT STRIP URNLS DIP 47129 JEANNINE JEANNINE 2 SEE SEE STICK/TAB LET RGNT NON-AUTO W/O MICRSCP INJ J1055 MARI GUERRA MDRXYPRGE 2 [facility] CNTRACPT USE 150 MG INJ J1055 MARI GUERRA MDRXYPRGE 2 [facility] ACTAT SHARONDA MCDONOUGH CNTRACPT USE 150 MG IAADIADOO 35317 DUDYCZ-ACEVEDO DUDYCZ-ACEVEDO 2 LICZ MERLIN LICZ MERLIN STREPTOCO CCUS GROUP A INJ J1055 MARI GUERRA MDRXYPRGE 2 [facility] SH[facility] MCDONOUGH CNTRACPT USE 150 MG INJ J1055 MARI GUERRA MDRXYPRGE 1 [facility]CDON[facility] CNTRACPT USE 150 MG IAADIADOO 49761 PHYSICIAN DUCHELSIECZ-ACEVEDO 1 S FOR LICZ MERLIN STREPTOCO CHILDREN CCUS GROUP A IIV3 03697 PHYSICIAN LASHANDA VACCINE 1 S FOR MUH SPLIT CHILDREN VIRUS 0.5 ML DOSAGE IM USE INJ J1055 MARI GUERRA MDRXYPRGE 1 [facility] ACTAT SHARONDA MCDONOUGH CNTRACPT USE 150 MG BLOOD 95573 MARI GUERRA COUNT 1 [facility] HEMOGLOBI [facility] N SHARONDA MCDONOUGH URINE 88998 MARI GUERRA 1 [facility] VISUAL SHEFALIKAYLI MCDONOUGH COLOR CMPRSN METHS BLOOD 57949 PHYSICIAN LINDA COUNT 1 S FOR LICZ MERLIN COMPLETE CHILDREN AUTO&[place] [address] PHYSICIAN PHYSICIAN THYROID 1 S FOR S FOR STIMULATI CHILDREN CHILDREN NG HORMONE TSH PURE TONE 42700 PHYSICIAN LETIACEVEDO 1 S FOR LICZ MERLIN AUDIOMETR CHILDREN Y AIR ONLY SKIN TEST 75720 PHYSICIAN LINDA 1 S FOR LICZ MERLIN TUBERCULO CHILDREN SIS INTRADERM AL SERVICES 87553 PHYSICIAN LINDA PROVIDED 1 S FOR LICZ MERLIN OFFICE CHILDREN OTH/THN REG SCHED HOURS EXC B9 73673 SHARONDA MCDONOUGH LESION 1 [facility] MEDICAL MRGN XCP CENTER CENTER SK TG T/A/L >4.0 CM EXC B9 98311 SHARONDA HAMLIN NORMA LESION 1 [facility] XCP FAITH SK TG HOSP T/A/L 3.1-4.0 CM RINGERS J7120 SHARONDA MCDONOUGH LACTATE 1 [facility] MEDICAL INFUSION CENTER CENTER UP TO 1000 CC INJECTION J2250 SHARONDA MCDONOUGH [address] [facility] MIDAZOLAM CENTER CENTER HCL PER 1 MG INJECTION J0690 SHARONDA MCDONOUGH [address] [place] [address] CEFAZOLIN CENTER CENTER SODIUM 500 MG INJECTION J3010 SHARONDA MCDONOUGH FENTANYL [address] [facility] CITRATE CENTER CENTER 0.1 MG ANES 99799 SHARONDA VALDEZ LOAIZA INTEG 1 [facility] EXTREMITI EMPIRE ES ANT INC TRUNK & PERINEUM NOS URINE 81208 SHARONDA MCDONOUGH 1 MEDICAL MEDICAL TEST CENTER CENTER VISUAL COLOR CMPRSN METHS LEVEL III 99348 SHARONDA MCDONOUGH SURG [address] [facility] PATHOLOGY CENTER CENTER GROSS&KHUSHI ROSCOPIC EXAM IAADIADOO 31705 PHYSICIAN EMILYCZ-ACEVEDO 1 S FOR LICZ MERLIN INFLUENZA CHILDREN IAADIADOO 43541 PHYSICIAN DANIELDYCZ-ACEVEDO 1 S FOR LICZ MERLIN STREPTOCO CHILDREN CCUS GROUP A CUL BACT 75058 [facility] XCPT [address] [facility] URINE CENTER CENTER BLOOD/STO OL AEROBIC ISOL BLOOD 14071 PHYSICIAN DANIELDYCZ-ACEVEDO COUNT 1 S FOR LICZ MERLIN COMPLETE CHILDREN AUTO&AUTO DIFRNTL WBC SERVICES 87692 PHYSICIAN DANIELDYCZ-ACEVEDO PROVIDED 1 S FOR LICZ MERLIN OFFICE CHILDREN OTH/THN REG SCHED HOURS SERVICES 76280 PHYSICIAN DANIELDYCZ-ACEVEDO PROVIDED 1 S FOR LICZ MERLIN OFFICE CHILDREN O[place] [address] SHARONDA MCDONOUGH EXTREMITY 1 [facility] MEDICAL NON-VASC CENTER CENTER REAL-TIME IMG LMTD BLOOD 97897 PHYSICIAN DUDYCZ-ACEVEDO COUNT 1 S FOR LICZ MERLIN COMPLETE CHILDREN AUTO&AUTO DIFRNTL WBC SERVICES 73266 PHYSICIAN DANIELDYCZ-ACEVEDO PROVIDED 1 S FOR LICZ MERLIN OFFICE CHILDREN OTH/THN REG SCHED HOURS IAADIADOO 14056 PHYSICIAN DANIELDYCZ-ACEVEDO 1 S FOR LICZ MERLIN STREPTOCO CHILDREN CCUS GROUP A IAADIADOO 95290 PHYSICIAN DANIELDYCZ-ACEVEDO 1 S FOR LICZ MERLIN STREPTOCO CHILDREN CCUS GROUP A BLOOD 58895 PHYSICIAN DUDYCZ-ACEVEDO COUNT 1 S FOR LICZ MERLIN COMPLETE CHILDREN AUTO&AUTO DIFRNTL WBC IAADIADOO 15171 PHYSICIAN DUDYCZ-ACEVEDO 1 S FOR LICZ MERLIN INFLUENZA CHILDREN SERVICES 62229 PHYSICIAN DUDYCZ-ACEVEDO PROVIDED 1 S FOR LICZ MERLIN OFFICE CHILDREN OTH/THN REG SCHED HOURS IAADIADOO 03214 PHYSICIAN LASHANDA 1 S FOR MUH STREPTOCO CHILDREN CCUS GROUP A US PELVIC 58283 SHARONDA GIRON 0 DEN NONOBSTET RADIOLOGY TERESA PLLC REAL-TIME IMAGE COMPLETE SERVICES 59458 PHYSICIAN JEANNINE PROVIDED 0 S FOR ROMAN OFFICE CHILDREN OTH/THN REG SCHED HOURS IIV3 04617 PHYSICIAN JEANNINE VACCINE 0 S FOR ROMAN SPLIT CHILDREN VIRUS 0.5 ML DOSAGE IM USE HEPA 52518 PHYSICIAN JEANNINE VACCINE 2 0 S FOR ROMAN DOSE CHILDREN SCHEDULE PED/ADOLE SC IM USE CULTURE 42059 SHARONDA MCDONOUGH BACTERIAL [address] [place] [address] QUANTTATI VE COLONY COUNT URINE URINE 92789 PHYSICIAN JEANNINE 0 S FOR ROMAN TEST CHILDREN VISUAL COLOR CMPRSN METHS URNLS DIP 08402 PHYSICIAN JEANNINE 0 S FOR ROMAN STICK/TAB CHILDREN LET RGNT NON-AUTO W/O MICRSCP RADEX 43594 SHARONDA CELAYA ELBOW 0 L[place]RIE COMPLETE RADIOLOGY MINIMUM 3 PLLC VIEWS SKIN TEST 08803 PHYSICIAN EMILYCZ-ACEVEDO 0 S FOR LICZ, TUBERCULO CHILDREN NATALY SIS I INTRADERM AL LALA 12374 PHYSICIAN MILDRED-ACEVEDO VACCINE 0 S FOR LICZ, LIVE FOR CHILDREN NATALY SUBCUTANE I OUS USE PURE TONE 45625 PHYSICIAN DUDYCZ-ACEVEDO 0 S FOR LICZ, AUDIOMETR [place] [address] PHYSICIAN MILDRED-ACEVEDO THYROID 0 S FOR LICZ, STIMULATI CHILDREN NATALY NG I HORMONE TSH BLOOD 44139 PHYSICIAN DUDYCZ-ACEVEDO COUNT 0 S FOR LICZ, COMPLETE CHILDREN NATALY AUTO&AUTO I DIFRNTL WBC RADEX 55915 SHARONDA VANEGAS FOREARM 2 0 BRUCE A VIEWS RADIOLOGY PLLC RADEX 41613 SHARONDA VANEGAS WRIST 0 BRUCE A COMPLETE RADIOLOGY MINIMUM 3 PLLC VIEWS RADEX 86410 SHARONDA MCDONOUGH SPINE [address] [place] [address] [facility] STANDING SCOLIOSIS SPMTRY 99104 PHYSICIAN JEANNINE, W/VC 9 S FOR THU EXPIRATOR CHILDREN Y PETER W/WO MXML VOL VNTJ IMMUNOASS 54405 PHYSICIAN DAVONTE PAEZ 9 S FOR THU INFECTIOU CHILDREN S AGENT ANTIBODY AMINTA NOS IAADIADOO 98132 PHYSICIAN JEANNINE, 9 S FOR THU INFLUENZA CHILDREN BRNCDILAT 93545 PHYSICIAN LASHANDA, RSPSE 9 S FOR LYNNE SPMTRY CHILDREN PRE&POST- BRNCDILAT ADMN SPMTRY 65871 PHYSICIAN JEANNINE, W/VC 9 S FOR THU EXPIRATOR CHILDREN Y PETER W/WO MXML VOL VNTJ SERVICES 26955 PHYSICIAN JEANNINE, PROVIDED 9 S FOR DANIEL S OFFICE CHILDREN OTH/THN REG SCHED HOURS SERVICES 95240 PHYSICIAN LASHANDA, PROVIDED 9 S FOR LYNNE OFFICE CHILDREN OTH/THN REG SCHED HOURS IAADIADOO 45665 PHYSICIAN LASHANDA, 9 S FOR LYNNE INFLUENZA CHILDREN BLOOD 43892 PHYSICIAN LASHANDA, COUNT 9 S FOR LYNNE COMPLETE CHILDREN AUTO&AUTO DIFRNTL WBC IAADIADOO 89190 PHYSICIAN JEANNINE, 9 S FOR DANIEL S INFLUENZA CHILDREN IIV3 35648 PHYSICIAN JEANNINE, VACCINE 9 S FOR DANIEL S SPLIT CHILDREN VIRUS 0.5 ML DOSAGE IM USE IMMUNOASS 65949 PHYSICIAN PAEZ AY 9 S FOR THU INFECTIOU CHILDREN S [place] [address] PHYSICIAN PAEZ THYROID 9 S FOR THU STIMULATI CHILDREN NG HORMONE TSH BLOOD 58953 PHYSICIAN JEANNINE, COUNT 9 S FOR THU COMPLETE CHILDREN AUTO&AUTO DIFRNTL WBC URINLS 30539 PHYSICIAN JEANNINE DIP 9 S FOR THU STICK/TAB CHILDREN LET REAGNT NON-AUTO MICRSCPY HEPA 80130 PHYSICIAN PAEZ VACCINE 2 9 S FOR THU DOSE CHILDREN SCHEDULE PED/ADOLE SC IM USE SKIN TEST 26089 PHYSICIAN JEANNINE, 9 S FOR THU TUBERCULO CHILDREN SIS INTRADERM AL PURE TONE 54926 PHYSICIAN JEANNINE, 9 S FOR THU AUDIOMETR CHILDREN Y AIR ONLY 4VHPV 18712 PHYSICIAN LASHANDA, VACCINE 3 9 S FOR LYNNE DOSE CHILDREN SCHEDULE FOR IM USE SERVICES 92482 PHYSICIAN LASHANDA, PROVIDED 9 S FOR LYNNE OFFICE CHILDREN OTH/THN REG SCHED HOURS IMMUNOASS 20871 PHYSICIAN JEANNINE, AY 9 S FOR DANIEL S INFECTIOU CHILDREN S AGENT ANTIBODY AMINTA NOS LAIV3 27046 PHYSICIAN JEANNINE, VACCINE 8 S FOR THU LIVE FOR CHILDREN INTRANASA L USE SERVICES 99930 PHYSICIAN JEANNINE, PROVIDED 8 S FOR DANIEL S OFFICE CHILDREN OTH/THN REG SCHED HOURS IMMUNOASS 95039 PHYSICIAN JEANNINE, AY 8 S FOR DANIEL S INFECTIOU CHILDREN S AGENT ANTIBODY AMINTA NOS URINLS 15202 PHYSICIAN JEANNINE, DIP 8 S FOR DANIEL S STICK/TAB CHILDREN LET REAGNT NON-AUTO MICRSCPY RADEX 38143 SHARONDA MCDONOUGH FOOT [address] [place] [address] MINIMUM 3 VIEWS RADEX 08402 SHARONDA MCDONOUGH SPINE [address] [place] [address] [facility] BR STANDING SCOLIOSIS COLLECTIO 95426 SHARONDA MCDONOUGH N VENOUS [address] [place] [address] BLOOD [facility] VENIPUNCT URE GLUCOSE 94098 SHARONDA MCDONOUGH QUANTITAT [address] [place] [address] VALENTINE BLOOD [facility] XCPT REAGENT STRIP LIPID 79430 SHARONDA MCDONOUGH PANEL [address] [place] [address] [place] [address] SHARONDA MCDONOUGH THYROID [address] [place] [address] STIMULATI [facility] NG HORMONE TSH BLOOD 50430 PHYSICIAN LASHANDA, COUNT 8 S FOR [place] COMPLETE CHILDREN AUTO&AUTO DIFRNTL WBC URINLS 70355 PHYSICIAN LASHANDA, DIP 8 S FOR [place] STICK/TAB CHILDREN LET REAGNT NON-AUTO MICRSCPY SKIN TEST 78975 PHYSICIAN LASHANDA, 8 S FOR LYNNE TUBERCULO CHILDREN SIS INTRADERM AL PURE TONE 07495 PHYSICIAN LASHANDA, 8 S FOR LYNNE AUDIOMETR CHILDREN Y AIR ONLY RADEX 06761 SHARONDA CELAYA SPINE 8 [facility] 2 VIEWS PLL RADEX 57811 [facility] [address] [place] [address] LUMBOSACR [facility] AL MINIMUM 4 VIEWS 4VHPV 36469 PHYSICIAN JEANNINE, VACCINE 3 8 S FOR DANIEL S DOSE CHILDREN SCHEDULE FOR IM USE SERVICES 36302 PHYSICIAN JEANNINE PROVIDED 8 S FOR DANIEL S OFFICE CHILDREN OTH/THN REG SCHED HOURS RADEX 49948 [facility] SPINE [address] [place] [address] CERVICAL [facility] 2 OR 3 VIEWS RADEX 47805 [facility] SPINE [address] [place] [address] THORACIC [facility] 2 VIEWS TDAP 11698 PHYSICIAN LASHANDA, VACCINE 7 8 S FOR LYNNE YRS/> IM CHILDREN 4VHPV 99628 PHYSICIAN LASHANDA, VACCINE 3 8 S FOR [place]YN[place] DOSE CHILDREN SCHEDULE FOR IM USE MCV4 85336 PHYSICIAN LASHANDA, MENACWY 8 S FOR LYNNE CONJ VACC CHILDREN GRPS [id number] IM USE Encounters Encounter Start End Date Code Location Performer Type Date PERIODIC 94205 MARI GUERRA PREVENTIV 5 5 [facility] PATIENT SHARONDA MCDONOUGH 18-39 YRS OFFICE 65925 PHYSICIAN LASHANDA OUTPATIEN 5 5 S [facility] T VISIT CHILDREN 15 MINUTES OFFICE 00888 PHYSICIAN LASHANDA OUTPATIEN 5 5 S [facility] T VISIT CHILDREN 15 MINUTES OFFICE 28254 PHYSICIAN MAGDI OUTPATIEN 4 4 S FOR [facility]R T VISIT CHILDREN 15 MINUTES OFFICE 28315 PHYSICIAN FAIRBANKS OUTPATIEN 4 4 S FOR CHR T VISIT CHILDREN 15 MINUTES OFFICE 72859 MARI GUERRA OUTPATIEN 4 4 [facility] T VISIT [facility] 41535 LASHANDA LASHANDA PREVENTIV 4 4 [facility] E MED EST PATIENT 12 OFFICE 75399 MARI GUERRA OUTPATIEN 4 4 [facility] OFF[facility] 42010 LASHANDA LASHANDA OUTPATIEN 4 4 [facility] T VISIT 15 MINUTES OFFICE 70852 MARI GUERRA OUTPATIEN 4 4 [facility] T VISIT [facility] 10 [facility] [place] [facility] T OFFICE 19525 [facility] DUDYCZ-[facility]EV[facility]O OUTPATIEN 3 3 [facility] T VISIT 15 MINUTES OFFICE 39106 D[facility]YC[facility]EV[facility] DUDYCZ-ACEV[facility]O OUTPATIEN 3 3 [facility] T VISIT 15 MINUTES OFFICE 02734 LASHANDA LASHANDA OUTPATIEN 3 3 [facility] T VISIT 15 MINUTES OFFICE 22635 JEANNINE JEANNINE OUTPATIEN 3 3 SEE SEE T VISIT 15 MINUTES OFFICE 94250 LASHANDA LASHANDA OUTPATIEN 3 3 [facility] T VISIT 15 MINUTES OFFICE 33868 LASHANDA LASHANDA OUTPATIEN 3 3 [facility] T VISIT 15 MINUTES [facility] [place] [facility] T OFFICE 24891 JEANNINE JEANNINE OUTPATIEN 3 3 SEE SEE T VISIT 15 MINUTES OFFICE 34332 [facility]YC[facility]EV[facility] DUDYCZ-ACEVEDO OUTPATIEN 3 3 [facility] T VISIT 15 MINUTES PERIODIC 15424 MARI GUERRA PREVENTIV 3 3 [facility] PATIENT SHARONDA MCDONOUGH 12-17YRS OFFICE 02879 MARI GUERRA OUTPATIEN 3 3 [facility] T VISIT [facility] 10 HIGH LJ HIGH LJ MINUTES OFFICE 81851 LASHANDA LASHANDA OUTPATIEN 3 3 MU MUH T VISIT 15 MINUTES OFFICE 21563 MARI GUERRA OUTPATIEN 3 3 [facility] T VISIT [facility] 10 SHARONDA MCDONOUGH MINUTES OFFICE 86646 LASHANDA LASHANDA OUTPATIEN 3 3 MU MUH T VISIT 15 MINUTES OFFICE 93579 LASHANDA LASHANDA OUTPATIEN 3 3 MU MUH T VISIT 15 MINUTES OFFICE 32462 MARI GUERRA OUTPATIEN 2 2 [facility] T VISIT [facility] 10 SHARONDA MCDONOUGH MINUTES OFFICE 17001 JEANNINE PAEZ OUTPATIEN 2 2 [facility] T VISIT 15 MINUTES [facility] [place] [facility] T OFFICE 24579 ADAN AAR ADAN AAR OUTPATIEN 2 2 T VISIT 10 MINUTES OFFICE 45597 MARI GUERRA OUTPATIEN 2 2 [facility] T VISIT [facility] 15 HIGH LJ HIGH LJ MINUTES OFFICE 05577 LASHANDA LASHANDA OUTPATIEN 2 2 [facility] T VISIT 15 MINUTES [facility] [place] [facility] T OFFICE 80002 DUDYCZ-ACEVEDO DUDYCZ-ACEVEDO OUTPATIEN 2 2 LICRamirez MERLIN JONOZ [facility] T VISIT 15 MINUTES OFFICE 46061 MARI GUERRA OUTPATIEN 2 2 [facility] T VISIT [facility] 10 SHARONDA MCDONOUGH MINUTES OFFICE 26742 LASHANDA LASHANDA OUTPATIEN 2 2 [facility] T VISIT 15 MINUTES [facility] [place] [facility] T OFFICE 33124 FITZ BYRNES OUTPATIEN 2 2 JAM JAM T NEW 30 MINUTES OFFICE 05753 DUDYCZ-ACEVEDO DUDYCZ-ACEVEDO OUTPATIEN 2 2 [facility] L[facility]Z [facility] T VISIT 15 MINUTES [facility] [place] [facility] T OFFICE 84774 LASHANDA LASHANDA OUTPATIEN 2 2 [facility] T VISIT 15 MINUTES PERIODIC 88007 JEANNINE JEANNIEN PREVENTIV 2 2 SEE SEE E MED EST PATIENT [facility] [place] - [facility] 2 [facility] T OFFICE 03450 MARI GUERRA OUTPATIEN 2 2 [facility] T VISIT [facility]ALTH MINUTES SHARONDA MCDONOUGH PERIODIC 65657 MARI GUERRA PREVENTIV 2 2 [facility] E MED EST [facility] PATIENT SHARONDA MCDONOUGH S OFFICE 15845 LASHANDA LASHANDA OUTPATIEN 2 2 [facility] T VISIT 15 MINUTES OFFICE 62976 MARI GUERRA OUTPATIEN 2 2 [facility] T VISIT [facility] 10 SHARONDA MCDONOUGH MINUTES OFFICE 56002 DUDYCZ-ACEVEDO DUDYCZ-ACEVEDO OUTPATIEN 2 2 [facility] T VISIT 15 MINUTES OFFICE 18277 MARI GUERRA OUTPATIEN 2 2 [facility] T VISIT [facility] 10 SHARONDA MCDONOUGH MINUTES OFFICE 78145 MARI MARI OUTPATIEN 1 1 [facility] T VISIT [facility] 10 [place] MINUTES OFFICE 96412 PHYSICIAN MILDRED-ACEVEDO OUTPATIEN 1 1 S FOR LICZ [facility] T VISIT CHILDREN 15 MINUTES OFFICE 47594 PHYSICIAN LASHANDA OUTPATIEN 1 1 S FOR MUH T VISIT CHILDREN 15 MINUTES PERIODIC 52180 MARI GUERRA PREVENTIV 1 1 [facility] E [facility] PATIENT SHARONDA MCDONOUGH 12-17YRS PERIODIC 14947 PHYSICIAN LINDA PREVENTIV 1 1 S FOR L[facility]Z [facility] E MED EST CHILDREN PATIENT 12-17YRS OFFICE [address] OUTPATIEN 1 1 MEDICAL T VISIT CENTER 15 [facility] [place] - [facility] 1 [facility] [place] - [facility] OFFICE [address] OUTPATIEN 1 1 MEDICAL T NEW CENTER PENDING SALE TO [facility] [place] - [facility] OFFICE 52794 PHYSICIAN DUDYCZ-ACEVEDO OUTPATIEN 1 1 S FOR LICZ [facility] T VISIT CHILDREN 15 MINUTES OFFICE 19089 PHYSICIAN MILDRED-ACEVEDO OUTPATIEN 1 1 S FOR LICZ [facility] T VISIT CHILDREN 15 MINUTES OFFICE 56892 PHYSICIAN LASHANDA OUTPATIEN 1 1 S FOR MUH T VISIT CHILDREN 15 MINUTES OFFICE 47795 PHYSICIAN LASHANDA OUTPATIEN 1 1 S FOR [facility] T VISIT CHILDREN 15 MINUTES OFFICE 50941 PHYSICIAN LASHANDA OUTPATIEN 0 0 S FOR MUH T VISIT CHILDREN 15 MINUTES [facility] [place] [facility] [place] [facility] 0 [facility] T EMERGENCY 59106 FAMILIA KANIKA ANT 0 0 EMERGENCY DEPARTMEN SERVICES T VISIT MODERATE SEVERITY [facility] [place] [facility] T PERIODIC 23558 PHYSICIAN LINDA PREVENTIV 0 0 S FOR LICZ, E MED EST CHILDREN NATALY PATIENT I 12-17YRS OFFICE 37723 PHYSICIAN ANDINE PAEZPATIGREGORY 0 0 S FOR THU T VISIT CHILDREN 15 MINUTES [facility] [place] [facility] 0 [facility] T [facility] [place] [facility] T EMERGENCY [address]39 [place] 0 [facility] T VISIT MODERATE SEVERITY OFFICE 21535 PHYSICIAN DAYA PAEZ 0 0 S FOR THU T VISIT CHILDREN 15 MINUTES [facility] [place] [facility] T OFFICE 19225 PHYSICIAN JEANNINE OUTPATIEN 9 9 S FOR THU T VISIT CHILDREN 15 MINUTES OFFICE 34348 PHYSICIAN LASHANDA OUTPATIEN 9 9 S FOR [place]NE T VISIT CHILDREN 15 MINUTES OFFICE 42635 PHYSICIAN JEANNINE OUTPATIEN 9 9 S FOR THU T VISIT CHILDREN 15 MINUTES OFFICE 39674 PHYSICIAN JEANNINE OUTPATIEN 9 9 S FOR DANIEL S T VISIT CHILDREN 15 MINUTES OFFICE 74577 PHYSICIAN JEANNINE OUTPATIEN 9 9 S FOR DANIEL S T VISIT CHILDREN 10 MINUTES OFFICE 04742 PHYSICIAN JEANNINE OUTPATIEN 9 9 S FOR THU T VISIT CHILDREN 15 MINUTES PERIODIC 95755 PHYSICIAN JEANNINE PREVENTIV 9 9 S FOR THU E MED EST CHILDREN PATIENT 12-17YRS OFFICE 39880 PHYSICIAN LASHANDA, OUTPATIEN 9 9 S FOR [facility] T VISIT CHILDREN 15 MINUTES OFFICE 00323 PHYSICIAN LASHANDA, OUTPATIEN 9 9 S FOR LYNNE T VISIT CHILDREN 15 MINUTES OFFICE 55292 [facility] OUTPATIEN 9 9 [facility] [employer] [employer] [facility] ACCT OFFICE 33097 PHYSICIAN DAYA PAEZ 9 9 S FOR DANIEL S T VISIT CHILDREN 15 MINUTES OFFICE 96807 PHYSICIAN JEANNINE OUTSHANITA 8 8 S FOR THU T VISIT CHILDREN 15 MINUTES [facility] [place] [facility] T EMERGENCY 78582 FAMILIA CONRAD 8 8 EMERGENCY [facility] T [facility] S [facility] [place] - 8 8 [facility] T OFFICE 42831 PHYSICIAN LASHANDA, OUTPATIEN 8 8 S FOR LYNNE T VISIT CHILDREN 15 MINUTES OFFICE 45321 PHYSICIAN DAYA PAEZ 8 8 S FOR DANIEL S T VISIT CHILDREN 15 MINUTES [facility] [place] [facility] T OFFICE 97033 PHYSICIAN DAYA PAEZ 8 8 S FOR DANIEL S T VISIT CHILDREN 15 MINUTES [facility] [place] [facility] 8 [facility] T OFFICE 12285 PHYSICIAN LASHANDA OUTPATIEN 8 8 S FOR [place] T VISIT CHILDREN 15 MINUTES OFFICE 39936 PHYSICIAN LASHANDA OUTPATIEN 8 8 S FOR LYNNE T VISIT CHILDREN 15 MINUTES
--- OUTSIDE RECORDS SUMMARY | 2017-01-28 12:49 | External Medical Summary Rpt ---
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 Name Role Phone AJRAYSA NORMA, AJRAYSA NORMA Unavailable Unavailable [facility] CHR, [facility]KS Unavailable Unavailable CHR LAURA TER, LAURA TER Unavailable Unavailable HIMA JAM, HIMA JAM Unavailable Unavailable HIMA JAM, HIMA JAM Unavailable Unavailable MCBRIDE SHE, MCBRIDE SHE Unavailable Unavailable ADAN AAR, ADAN AAR Unavailable Unavailable [facility] MERLIN, Unavailable Unavailable [facility]UL[facility] MERLIN D[facility]YCZ-SULICZ MERLIN, Unavailable Unavailable [facility]UL[facility] MERLIN D[facility]YCZ-SULIC[facility], Unavailable Unavailable NATALY Arteaga, CHANDA, NATALY I YUE CONRAD, Unavailable Unavailable YUE CONRAD DEN, MACK Unavailable Unavailable DEN LASHANDA MUH, LASHANDA Unavailable Unavailable MUH LASHANDA MUH, LASHANDA Unavailable Unavailable MUH LASHANDA, LYNNE, Unavailable Unavailable LASHANDA, LYNNE [facility], Unavailable Unavailable [facility] Unavailable Unavailable SERVICES, [facility], Unavailable Unavailable [facility] COURTNEY LOAIZA, COURTNEY LOAIZA Unavailable Unavailable [facility], [facility]available [facility]available [facility] Unavailable Un[facility], [facility] Unavailable Unavailable [facility], [facility] Unavailable Unavailable [facility], [facility] Unavailable [facility]available [facility] Unavailable Unavailable [facility] Unavailable Unavailable [facility] Unavailable Unavailable [facility] Unavailable Unavailable [facility] Unavailable Unavailable [facility] Unavailable Unavailable [facility] Unavailable [facility]available [facility] YOMI, ROSY, YOMI, Unavailable Unavailable ROSY JEANNINE ROMAN, Unavailable Unavailable JEANNINE ROMAN JEANNINE ROMAN, Unavailable Unavailable JEANNINE ROMAN JEANNINE SEE, Unavailable Unavailable JEANNINE SEE JEANNINE SEE, Unavailable Unavailable JEANNINE SEE JEANNINE, DANIEL S, Unavailable Unavailable JEANNINE, DANIEL S JEANNINE, THU, Unavailable Unavailable JEANNINE, THU DANA SHE, DANA SHE Unavailable Unavailable SETTLES II BRYAN, Unavailable Unavailable [facility] BRYAN [facility] BRYAN, Unavailable Unavailable [facility] BRYAN JACKELINE PENA, Unavailable Unavailable JACKELINE PENA BRANDON L, Unavailable Unavailable RONNIE, ENID L [facility], Unavailable Unavailable [facility] FITZ MIRAMONTES, FITZ Unavailable Unavailable J[facility] Unavailable Unavailable #1505, [facility] WELL[facility] BRA, WELL[facility] BRA Unavailable Unavailable Purpose Continuity of Care Document - 10-13-2007 through 2016 Problems Code Diagnosis DOS Provider Status J020 STREPTOCOCC 05-29-2015 PHYSICIANS AL FOR PHARYNGITIS CHILDREN V2541 SURVEILLANC 01-05-2015 [facility] E [facility] PRESCRIBED [place] CONTRACEPT PILL V2689 OTHER 01-05-2015 [facility] PROCREATIVE [place] MANAGEMENT 463 ACUTE 01-03-2015 [facility]YSICIANS TONSILLITIS FOR CHILDREN 7245 UNSPECIFIED 12-14-2014 [facility]ANS BACKACHE FOR CHILDREN 22803 MIGRAINE 10-03-2014 PHYSICIANS W/O AURA FOR W/O INTRACT CHILDREN W/O STAT MIGRNOSUS 31135 SPRAIN AND 10-03-2014 PHYSICIANS STRAIN OF FOR 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 HAND 462 ACUTE 08-16-2014 [facility]ANS PHARYNGITIS FOR CHILDREN 4659 ACUTE URIS 08-16-2014 PHYSICIANS OF FOR UNSPECIFIED CHILDREN SITE 0340 STREPTOCOCC 05-12-2014 PHYSICIANS AL SORE FOR THROAT CHILDREN V011 CONTACT 04-08-2014 [facility] WITH OR EXPOSURE TO TUBERCULOSI S V0184 CONTACT OR 04-08-2014 [facility] EXPOSURE TO MENINGOCOCC US V653 DIETARY 04-08-2014 [facility] SURVEILLANC E AND COUNSELING V6541 EXCERCISE 04-08-2014 [facility] COUNSELING V700 ROUTINE 04-08-2014 [facility] GENERAL MEDICAL EXAM@HEALTH CARE FACL V720 EXAMINATION 04-08-2014 [facility] OF EYES AND VISION V7219 OTHER [facility]-08-[facility] OF EARS AND HEARING V8554 BODY MASS 04-08-[facility] INDEX PED >/EQUAL TO 95TH % AGE 4660 ACUTE 11-09-2013 [facility] BRONCHITIS 8489 UNSPECIFIED 11-09-2013 [facility] SITE OF SPRAIN AND STRAIN 91978 MASTODYNIA 08-20-2013 [facility] 54499 LUMP OR 08-20-2013 [facility] IN [facility] BREAST C[facility] 6119 UN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[facility] BREAST [facility] DISORDER [facility] 7576 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[facility] CONGENITAL MEDICAL ANOMALIES CENTER OF BREAST 94761 OTHER 08-20-2013 [facility] ABNORMAL MEDICAL FINDING CENTER RADIOLOGICA L EXAM BREAST V725 RADIOLOGICA 08-20-2013 SETTLES II L BRYAN EXAMINATION NEC 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 D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 19268 ASTHMA, 07-03-2013 JEANNINE UNSPECIFIED SEE , UNSPECIFIED STATUS 49593 UNSPECIFIED 06-26-2013 [facility] CONSTIPATIO N 95107 UNSPECIFIED 04-30-2013 [facility] OTALGIA 4779 ALLERGIC 04-30-2013 [facility] RHINITIS CAUSE UNSPECIFIED 30677 OBESITY, 04-17-2013 JEANNINE UNSPECIFIED SEE 67433 UNSPECIFIED 04-17-2013 JEANNINE VAGINITIS SEE AND VULVOVAGINI TIS 22303 SCOLIOSIS , 04-17-2013 JEANNINE IDIOPATHIC SEE 2662 OTHER 01-14-2013 [facility] B-COMPLEX HEALTH DEFICIENCIYuliya Walker V2549 SURVEILLANC 01-14-2013 [facility] E OT PREV HEALTH PRSC SHARONDA CONTRACEPT METHOD 9100 FCE 01-07-2013 [facility] NCK&SCLP NO CENTRAL EYE HIGH LJ ABRAS/FRIC BURN W/O INF 9597 INJURY 01-07-2013 [facility] OTHER&UNSPE CENTRAL CIFIED KNEE HIGH LJ LEG ANKLE&FOOT 7061 OTHER ACNE 12-19-2012 [facility] 920 CONTUSION 11-02-2012 [facility]INDU OF FACE CZ MERLIN SCALP AND NECK EXCEPT EYE 28591 ESOPHAGEAL 09-18-2012 [facility] REFLUX 4658 ACUTE URIS 09-01-2012 LASHANDA MU OF OTHER MULTIPLE SITES 490 BRONCHITIS 09-01-2012 LASHANDA MU NOT SPECIFIED ACUTE OR CHRONIC 3671 MYOPIA 08-20-2012 HIMA JAM 64496 DYSPHAGIA 07-10-2012 JEANNINE UNSPECIFIED ROMAN 7840 HEADACHE 06-20-2012 [facility] [place] [address] ABDOMINAL 06-13-2012 LASHANDA MU PAIN, UNSPECIFIED SITE 4619 ACUTE 04-25-2012 [facility] SINUSITIS, UNSPECIFIED 29655 PAIN IN 04-23-2012 [facility] MEDICAL LOWER LEG CENTER 7295 PAIN IN 03-25-2012 [facility] SOFT MEDICAL TISSUES OF [place] LIMB 8448 SPRAIN&STRA 03-25-2012 [facility] IN OTHER MEDICAL SPECIFIED CENTER COREY SITES KNEE&LEG 60190 UNSPECIFIED 03-25-2012 [facility] SITE OF MEDICAL ANKLE CENTER COREY SPRAIN AND STRAIN 1121 CANDIDIASIS 02-14-2012 [facility] VULVA HEALTH AND VAGINA [facility] V0481 NEED 05-11-2011 PHYSICIANS PROPHYLACTI FOR C CHILDREN VACCINATION &INOCULATIO N FLU V2502 GENERAL 03-14-2011 [facility] CNSL HEALTH INITIATION [facility] CONTRACEPT MEASURES 7062 SEBACEOUS 02-14-2011 [facility] CYST MEDICAL [place] INC 6829 CELLULITIS 01-07-2011 [facility] AND [facility]ICAL [facility] UNSPECIFIED SITE 88597 LEUKOCYTOPE 01-06-2011 PHYSICIANS TAZ FOR UNSPECIFIED CHILDREN 6822 CELLULITIS 12-29-2010 [facility] AND [facility]SCESS MEDICAL OF TRUNK CENTER 7822 LOCALIZED 12-29-2010 [facility] SUPERFICIAL MEDICAL SWELLING [place] MASS OR LUMP 4871 INFLUENZA 11-20-2010 PHYSICIANS WITH OTHER FOR RESPIRATORY CHILDREN MANIFESTATI ONS V0389 NEED PROPH 05-17-2010 PHYSICIANS VACC FOR AGAINST OTH CHILDREN SPEC VACC 36821 PAIN IN 05-11-2010 [facility], MEDICAL UPPER ARM CENTER 9593 INJURY 05-11-2010 [facility] OTHER&UNSPE MEDICAL CIFIED [place] [facility]&WRI ST E8859 FALL FROM 05-11-2010 [facility] OTHER EMERGENCY SLIPPING SERVICES TRIPPING OR STUMBLING V054 NEED PROPH 03-08-2010 PHYSICIANS VACC&INOCUL FOR AT AGAINST CHILDREN VARICELLA 45813 PAIN IN 11-15-2009 [facility], MEDICAL FOREARM CENTER 12682 SPRAIN AND 11-14-2009 [facility] STRAIN OF EMERGENCY UNSPECIFIED SERVICES SITE OF ASSOCIATES WRIST V6759 OTHER 10-17-2009 [facility] EXAMINATION CENTER OTHER 81887 EXTRINSIC 07-20-2009 PHYSICIANS ASTHMA, FOR WITH CHILDREN EXACERBATIO N 24822 UNSPECIFIED 06-27-2009 PHYSICIANS VIRAL FOR INFECTION CHILDREN IN CCE & UNS SITE V202 ROUTINE 05-20-2009 PHYSICIANS INFANT OR FOR CHILD CHILDREN HEALTH CHECK V059 NEED PROPH 03-04-2009 PHYSICIANS VACC&INOCUL [place] [address] DIARRHEA 02-11-2009 [facility]ANS FOR CHILDREN 65688 CONTACT 12-13-2008 [facility] DERMATITIS& HEALTH OTHER CENTRAL ECZEMA DUE BANK ACCT TO SUNBURN 9492 BLISTERS 12-11-2008 PHYSICIANS W/EPIDERMAL FOR LOSS DUE CHILDREN BURN UNSPEC SITE 7048 OTHER 06-30-2008 PHYSICIANS SPECIFIED FOR DISEASE OF CHILDREN HAIR&HAIR FOLLICLES 65537 ACUTE 06-16-2008 PHYSICIANS GASTRITIS FOR WITHOUT CHILDREN MENTION OF HEMORRHAGE 5997 HEMATURIA 06-16-2008 [facility] FOR CHILDREN 09048 CONTUSION 05-31-2008 [facility] 7231 CERVICALGIA 12-02-2007 [...] ia de te s n re d IB 55 09 09 30 8 TO 10 ID Ac UP 11 -2 -2 .0 TA 16 RE ti RO 10 1- 1- 00 L 26 ES ve FE 68 20 20 PH 4 N 20 11 11 AR MU 40 1 MA BURNS 0 CY MM MG AD CA TA RE BL ET CE 00 09 09 20 10 TO 10 ID Ac FP 09 -2 -2 .0 TA 16 RE ti RO 31 1- 1- 00 L 27 ES ve ZI 07 20 20 PH 2 L 70 11 11 AR MU 25 1 MA BURNS 0 CY MM MG AD CA TA RE BL ET RI 00 07 07 30 30 TO 10 ID Ac NO 59 -1 -1 .0 TA 03 RE ti CY 15 9- 9- 00 L 98 ES ve CL 69 20 20 PH 6 IN 40 11 11 AR MU E 1 MA BURNS 50 CY MM AD MG CA RE CA PS UL E EP 00 07 07 45 7 TO 10 ID Ac ID 29 -1 -1 .0 TA 03 RE ti UO 95 9- 9- 00 L 98 ES ve 90 20 20 PH 7 0. 84 11 11 AR MU 1- 5 MA BURNS 2. CY MM 5% AD CA GE RE L FE 00 07 07 60 30 TO 10 ID Ac RR 67 -1 -1 .0 TA 03 RE ti OU 70 9- 9- 00 L 98 ES ve S 07 20 20 PH 8 ACEVEDO 01 11 11 AR MU LF 0 MA BURNS AT CY MM E AD 32 CA 5 RE MG TA BL ET RI 00 03 06 30 30 TO 97 [...] I TA T BL HO ET S MU 45 05 05 22 7 TO 98 DU Ac PI 80 -0 -0 .0 TA 94 DY ti RO 20 2- 2- 00 L 44 CZ ve CI 11 20 20 PH -S N 22 11 11 AR UL 2% 2 MA IC CY Z OI KA NT CA TA ME RE RZ NT YN A I ACEVEDO 00 05 05 20 10 TO 98 DU Ac LF 60 -0 -0 .0 TA 94 DY ti AM 35 2- 2- 00 L 45 CZ ve ET 78 20 20 PH -S HO 12 11 11 AR UL XA 1 MA IC ZO CY Z LE KA -T CA TA MP RE RZ YN DS A I TA BL ET 59 04 04 20 10 TO 98 ID Ac 76 -0 -0 .0 TA 46 RE ti 22 4- 7- 00 L 12 ES ve 18 20 20 PH 00 11 11 AR MU 1 MA BURNS CY MM AD CA RE CE 45 04 04 30 30 TO 98 ID Ac TI 80 -0 -0 .0 TA 46 RE ti RI 20 7- 7- 00 L 14 ES ve ZI 91 20 20 PH NE 98 11 11 AR MU 7 MA BURNS HC CY MM L AD 10 CA RE MG TA BL ET 00 03 03 0 10 10 PI [...] 0 10 5 PI 53 DU Ac RI 00 -2 -2 .0 KE 04 DY [...] MM 5% AD CA GE RE L RI 00 03 03 30 30 TO 97 ID Ac NO 59 -0 -0 .0 TA 74 RE ti CY 15 4- 4- 00 L 42 ES ve CL 69 20 20 PH IN 40 11 11 AR MU E 1 MA BURNS 50 CY MM AD MG CA RE CA PS UL E RI 00 12 12 30 30 TO 96 ID Ac NO 59 -3 -3 .0 TA 46 RE ti CY 15 1- 1- 00 L 55 ES ve CL 69 20 20 PH IN 55 10 10 AR MU E 0 MA BURNS 10 CY MM 0 AD MG CA RE CA PS UL E RI 00 11 11 30 30 TO 95 ID Ac NO 59 -1 -1 .0 TA 61 RE ti CY 15 5- 5- 00 L 23 ES ve CL 69 20 20 PH IN 55 10 10 AR MU E 0 MA BURNS 10 CY MM 0 AD MG CA RE CA PS UL E RI 00 10 10 30 30 TO 95 [...] MM 5% AD CA GE RE L RI 00 03 05 30 30 TO 91 [...] RA CY KE SH CA S RE RI 00 03 03 30 30 TO 91 ID Ac NO 59 -2 -2 .0 TA 18 RE ti CY 15 3- 3- 00 L 45 ES ve CL 69 20 20 PH IN 55 10 10 AR MU E 0 MA BURNS 10 CY MM 0 AD MG CA RE CA PS UL E EP 00 03 03 45 20 TO 91 ID Ac ID 29 -2 -2 .0 TA 18 RE ti UO 95 3- 3- 00 L 44 ES ve 90 20 20 PH 0. 84 10 10 AR MU 1- 5 MA BURNS 2. CY MM 5% AD CA GE RE L 00 12 12 00 25 13 TO [...] CA G RE IN BURNS LE R NO 00 12 [...] MG TA B 00 12 12 00 5. 5 TO [...] MC RE G IN BURNS LE R NA 00 12 [...] TA CA BL RE ET CH EW SI 00 10 11 00 30 30 TO 88 SA Ac NG 00 -2 -0 .0 TA 42 CH ti UL 60 7- 5- 00 L 05 DE ve AI 27 20 20 PH VA R 55 09 09 AR 5 4 MA RA MG CY KE SH TA CA S BL RE ET CH EW FL 00 10 11 00 12 30 PH 50 ID Ac OV 17 -2 -0 .0 AR 36 RE ti EN 30 1- 5- 00 MA 68 ES ve T 71 20 20 CY HF 92 09 09 MU A 0 OU BURNS 11 TL MM 0 ET AD MC G #3 IN BURNS LE R 60 10 11 00 75 5 TO 88 SA Ac 25 -1 -0 .0 TA 26 CH ti 80 9- 5- 00 L 12 DE ve 23 20 20 PH VA 91 09 09 AR 6 MA RA CY KE SH CA S RE CL 00 10 11 00 20 10 [...] OU BURNS TL MM ET AD #3 AZ 00 10 11 00 6. 3 TO 88 SA Ac IT 78 -1 -0 00 TA 26 CH ti HR 11 9- 5- 0 L 11 DE ve OM 49 20 20 PH VA YC 66 09 09 AR IN 8 MA RA CY KE 25 SH 0 CA S MG RE TA BL ET SM 49 10 11 00 8. 2 TO 88 SA Ac 34 -1 -0 00 TA 26 CH ti PA 80 9- 5- 0 L 10 DE ve IN 04 20 20 PH VA 21 09 09 AR RE 0 MA RA LI CY KE EV SH ER CA S RE [address] ET 00 10 11 00 13 3 TO 88 SA Ac 14 -2 -0 .0 TA 42 CH ti 31 7- 5- 00 L 03 DE ve 47 20 20 PH VA 30 09 09 AR 1 MA RA CY KE SH CA S RE RI 00 08 10 01 30 30 TO [...] CY KE SH CA S RE 60 09 09 00 14 7 TO 87 ID Ac 50 -0 -2 .0 TA 47 RE ti 50 9- 4- 00 L 88 ES ve 02 20 20 PH 50 09 09 AR MU 6 MA BURNS CY MM AD CA RE 59 09 09 00 12 12 TO 87 ID Ac 70 -0 -2 0. TA 47 RE ti 20 9- 4- 00 L 87 ES ve 80 20 20 0 PH 01 09 09 AR MU 6 MA BURNS CY MM AD CA RE 00 08 08 00 1. 30 TO 87 SA Ac 14 -1 -2 00 TA 04 CH ti 52 7- 7- 0 L 02 DE ve 36 20 20 PH VA 70 09 09 AR 1 MA RA CY KE SH CA S RE RI 00 08 08 00 30 30 TO 87 SA Ac NO 59 -1 -2 .0 TA 04 CH ti CY 15 7- 7- 00 L 01 DE ve CL 69 20 20 PH VA IN 55 09 09 AR E 0 MA RA 10 CY KE 0 SH MG CA S RE CA PS UL E DI 00 08 08 00 45 15 TO 87 SA Ac FF 29 -1 -2 .0 TA 04 CH ti ER 95 7- 7- 00 L 00 DE ve IN 91 20 20 PH VA 04 09 09 AR 0. 5 MA RA 1% CY KE SH GE CA S L RE 63 08 08 00 29 20 TO 87 SA Ac 71 -1 -2 7. TA 04 CH ti 70 7- 7- 00 L 04 DE ve 03 20 20 0 PH VA 01 09 09 AR 1 MA SE CY EM A CA RE 60 06 07 00 60 30 TO [...] #1 1% 50 5 CR EA M AZ 00 03 04 00 6. 3 TO 84 ID Ac IT 78 -2 -0 00 TA 46 RE ti HR 11 3- 9- 0 L 35 ES ve OM 49 20 20 PH YC 66 09 09 AR MU IN 8 MA BURNS CY MM 25 AD 0 CA MG RE TA BL ET 00 03 04 00 5. 5 TO 84 ID Ac 09 -2 -0 00 TA 46 RE ti 51 3- 9- 0 L 36 ES ve 29 20 20 PH 00 09 09 AR MU 6 MA BURNS CY MM AD CA RE 49 10 11 00 30 15 PH 48 ID Ac 88 -2 -0 .0 AR 56 RE ti 40 2- 7- 00 MA 16 ES ve 54 20 20 CY 40 08 08 MU 5 OU BURNS TL MM ET AD #3 MU 45 10 11 00 1. 14 PH 48 ID Ac PI 80 -2 -0 00 AR 56 RE ti RO 20 2- 7- 0 MA 17 ES ve CI 11 20 20 CY N 22 08 08 MU 2% 2 OU BURNS TL MM OI ET AD NT ME #3 NT AM 00 10 11 00 20 10 PH 48 ID Ac OX 09 -2 -0 .0 AR 56 RE ti -C 32 2- 7- 00 MA 14 ES ve LA 27 20 20 CY V 53 08 08 MU 87 4 OU BURNS 5- TL MM 12 ET AD 5 MG #3 TA BL ET 59 10 11 00 12 7 PH 48 ID Ac 70 -2 -0 0. AR 56 RE ti 20 2- 7- 00 MA 15 ES ve 80 20 20 0 CY 01 08 08 MU 6 OU BURNS TL MM ET AD #3 00 08 08 00 25 13 TO [...] Refuse d MCV4 114 Mening LASHANDA No MENAC2013 ococcu MUH Y CONJ s VACC vaccin [...] DOSE AD SCHEDU LE FOR IM USE TDAP LASHANDA No VACCIN 2007 , E 7 MUHAMM YRS/> AD IM MCV4 114 Mening LASHANDA No MENACW 2007 ococcu , Y CONJ s MUHAMM VACC vaccin AD GRPS e ACYW-1 admini 35 IM stered USE ; formul ation not specif ied. MCV4 136 Mening LASHANDA No MENACW 2007 ococcu , Y CONJ s MUHAMM VACC vaccin AD GRPS e ACYW-1 admini 35 IM stered USE ; formul ation not specif ied. Procedures Procedure DOS Code Location Performer Comment SERVICES 21690 PHYSICIAN DANA COLLINS PROVIDED 5 S FOR OFFICE CHILDREN OTH/THN REG SCHED HOURS IAADIADOO 40580 PHYSICIAN DANA COLLINS 5 S FOR STREPTOCO CHILDREN CCUS GROUP A IADNA 80181 MARI GUERRA CHLAMYDIA [address] [place] [address] TRACHOMAT SHARONDA MCDONOUGH IS AMPLIFIED PROBE TQ IADNA 10756 MARI GUERRA NEISSERIA 5 [facility] GONORRHOE SHARONDA MCDONOUGH AE AMPLIFIED PROBE TQ CONTRACEP S4993 MARI WELCH 5 [facility] SHARONDA MCDONOUGH CONTROL IAADIADOO 11442 PHYSICIAN LASHANDA 5 S FOR MUH STREPTOCO CHILDREN CCUS GROUP A SERVICES 47651 PHYSICIAN LASHANDA PROVIDED 5 S FOR MUH OFFICE CHILDREN OTH/THN REG SCHED HOURS IAADIADOO 19801 PHYSICIAN FAIRBANKS 4 S FOR CHR INFLUENZA CHILDREN IAADIADOO 32423 PHYSICIAN MAGDI 4 S FOR CHR STREPTOCO CHILDREN CCUS GROUP A CONTRACEP S4993 MARI WELCH 4 [facility] SHARONDA MCDONOUGH CONTROL MCV4 01160 LASHANDA LASHANDA MENACWY 4 [facility]H MUH CONJ VACC GRPS ACYW-135 IM USE SCREENING 57850 LASHANDA LASHANDA TEST 4 MUH MUH VISUAL ACUITY QUANTITAT VALENTINE BILAT PURE TONE 93738 LASHANDA LASHANDA 4 MUH MUH AUDIOMETR Y AIR ONLY SKIN TEST 95482 LASHANDA LASHANDA 4 MUH MUH TUBERCULO SIS INTRADERM AL BLOOD 64221 LASHANDA LASHANDA COUNT 4 MUH MUH COMPLETE AUTO&AUTO DIFRNTL WBC CONTRACEP S4993 MARI WELCH 4 [facility] SHARONDA MCDONOUGH CONTROL IAADIADOO 60692 LASHANDA LASHANDA 4 MUH MUH STREPTOCO CCUS GROUP A CONTRACEP S4993 MARI WELCH 4 [facility] SHARONDA MCDONOUGH CONTROL US BREAST 14067 SETTLES SETTLES REAL 3 II BRYAN II BRYAN TIME W/IMAGE DOCUMENTA TION URINE 14601 DUDYCZ-ACEVEDO DUDYCZ-ACEVEDO 3 LICZ MERLIN LICZ MERLIN TEST VISUAL COLOR CMPRSN METHS IAADIADOO 41365 LASHANDA LASHANDA 3 MUH MUH STREPTOCO CCUS GROUP A URNLS DIP 72551 LASHANDA LASHANDA 3 MUH MUH STICK/TAB LET RGNT NON-AUTO W/O MICRSCP GLUCOSE 00561 SHEFALIBALACLARE MEEHANKAYLI QUANTITAT 3 [facility] BLO[facility] XCPT REAGENT STRIP RADEX 90317 WELLS BRA WELLS BRA SPINE 3 THOR[place] [address] SHEFALIKAYLI MCDONOUGH THYROXINE 3 [facility] TOTAL [facility] LIPID 65206 SHEFALIKAYLI SHEFALIBALACLARE PANEL 3 [facility]INT [facility] COLLECTIO 69723 SHEFALIBALACALRE MEEHANBALACLARE N VENOUS 3 [facility]LO[facility] [place] [address] SHARONDA MCDONOUGH THYROID [address] [place] [address] NG HORMONE TSH IAADIADOO 69975 DUDYCZ-ACEVEDO DUDYCZ-ACEVEDO 3 LICZ MERLIN LICZ MERLIN STREPTOCO CCUS GROUP A INJECTION J1050 MARI GUERRA [address] [place] [address] SHARONDA MCDONOUGH E ACETATE 1 MG URINE 14579 MARI GUERRA [address] [place] [address] VISUAL SHARONDA MCDONOUGH COLOR CMPRSN METHS SERVICES 32260 DUDYCZ-ACEVEDO DUDYCZ-ACEVEDO PROVIDED 3 LICZ MERLIN LICZ MERLIN OFFICE OTH/THN REG SCHED HOURS INJECTION J1050 MARI GUERRA [address] [place] [address] [facility] SHARONDA E ACETATE 1 MG IAADIADOO 54021 LASHANDA LASHANDA 3 MUH MUH STREPTOCO CCUS GROUP A OPHTH 32343 HIMA KULWINDER MIRAMONTES MEDICAL 2 XM&EVAL INTERMEDI ATE NEW PT DETERMINA 79541 HIMA MIRAMONTES TION 2 REFRACTIV E STATE INJ J1055 MARI GUERRA MDRXYPRGE [address] [place] [address] ACTAT [facility] CNTRACPT USE 150 MG IADNA 20796 SHARONDA MCDONOUGH CHLAMYDIA 2 [facility] CENTER [place] TRACHOMAT IS AMPLIFIED PROBE TQ IADNA 55867 SHARONDA MCDONOUGH SHEA 2 [facility] SPECIES CENTER CENTER AMPLIFIED PROBE TQ IADNA NOS 06882 SHARONDA MCDONOUGH 2 [facility] MEDICAL AMPLIFIED CENTER CENTER PROBE TQ EACH ORGANISM IADNA 50267 SHEFALIBALACLARE MEEHANKAYLI NEISSERIA 2 [facility] GONORRHOE AE AMPLIFIED PROBE TQ CULTURE 51635 SHARONDA MCDONOUGH BACTERIAL 2 [facility] QUANTTATI VE COLONY COUNT URINE URNLS DIP 28633 SHARONDA MEEHANKAYLI [address] [place] [address] STICK/TAB CENTER CENTER LET REAGENT AUTO MICROSCOP Y SERVICES 59063 DUDYCZ-ACEVEDO DUDYCZ-ACEVEDO PROVIDED 2 LICZ MERLIN LICZ MERLIN OFFICE OTH/THN REG SCHED HOURS BLOOD 50487 DUDYCZ-ACEVEDO DUDYCZ-ACEVEDO COUNT 2 LICZ MERLIN LICZ MERLIN COMPLETE AUTO&AUTO DIFRNTL WBC SERVICES 47918 LASHANDA LASHANDA PROVIDED 2 [facility]H MUH OFFICE OTH/THN REG SCHED HOURS IAADIADOO 88915 LASHANDA LASHANDA 2 MUH MUH STREPTOCO CCUS GROUP A INJ [id number] MARI GUERRA MDRXYPRGE [address] [place] [address] ACTAT SHARONDA MCDONOUGH CNTRACPT USE 150 MG IAADIADOO 68683 LASHANDA LASHANDA 2 MUH MUH STREPTOCO CCUS GROUP A PHYSICAL 49778 SHARONDA MCDONOUGH THERAPY 2 [facility] MEDICAL EVALUATIO CENTER CENTER N KNEE L1810 SHARONDA MCDONOUGH ORTHOSIS 2 [facility] ELASTIC CENTER [place] JOINTS COREY COREY PREFAB CUSTOM FIT RADIOLOGI 02791 SHARONDA MCDONOUGH C EXAM 2 [facility] KNEE CENTER [place] COMPLETE 4/MORE VIEWS RADEX 82432 SHARONDA MCDONOUGH ANKLE 2 [facility] MEDICAL COMPLETE [place] CENTER MINIMUM 3 VIEWS ANKLE L4350 SHARONDA MCDONOUGH CONTROL 2 [facility]IS CENTER CENTER STIRRUP COREY COREY STYL RIGID PREFAB LIPID 99909 SHARONDA MCDONOUGH PANEL 2 [facility] [place] [address] SHARONDA MCDONOUGH THYROXINE 2 [facility] [place] COLLECTIO 76952 SHARONDA MCDONOUGH N VENOUS 2 [facility] VENIPUNCT URE BLOOD 76972 JEANNINE JEANNINE COUNT 2 SEE SEE COMPLETE AUTO&AUTO DIFRNTL WBC SKIN TEST 28482 JEANNINE JEANNINE 2 SEE SEE [place] [address] MAGNOLIACLARE SHARONDA TRIIODOTH 2 [facility] [place] [place] [address] JEANNINE JEANNINE THYROID 2 SEE SEE STIMULATI NG HORMONE TSH PURE TONE 39596 JEANNINE JEANNINE 2 SEE SEE AUDIOMETR Y AIR ONLY URNLS DIP 75280 JEANNINE JEANNINE 2 SEE SEE STICK/TAB LET RGNT NON-AUTO W/O MICRSCP GLUCOSE 88115 SHARONDA MCDONOUGH QUANTITAT 2 [facility] XCPT REAGENT STRIP INJ J1055 MARI GUERRA MDRXYPRGE 2 [facility] SHARONDA MCDONOUGH CNTRACPT USE 150 MG INJ J1055 MARI GUERRA MDRXYPRGE 2 [facility] ACTAT SHARONDA MCDONOUGH CNTRACPT USE 150 MG IAADIADOO [id number] DUDYCZ-ACEVEDO DUDYCZ-ACEVEDO 2 LICZ [facility]LIN LICZ MERLIN STREPTOCO CCUS GROUP A INJ J1055 MARI GUERRA MDRXYPRGE 2 [facility] ACTAT SHEFALIKAYLI SHEFALIBALACLARE CNTRACPT USE 150 MG INJ J1055 MARI GUERRA MDRXYPRGE 1 [facility] ACTAT SHEFALIKAYLI SHEFALIKAYLI CNTRACPT USE 150 MG IAADIADOO 96036 PHYSICIAN DUDYCZ-ACEVEDO 1 S FOR LICZ [facility] STREPTOCO CHILDREN CCUS GROUP A IIV3 85419 PHYSICIAN LASHANDA VACCINE 1 S FOR MUH SPLIT CHILDREN VIRUS 0.5 ML DOSAGE IM USE INJ J1055 MARI GUERRA MDRXYPRGE 1 [facility] ACTAT SHARONDA MEEHANBALACLARE CNTRACPT USE 150 MG BLOOD 75509 MARI GUERRA COUNT 1 [facility] HEMOGL[facility]BI [employer] [facility] N SHARONDA MCDONOUGH URINE 79984 MARI GUERRA 1 [facility] VISUAL SHEFALIKAYLI [place]IDAC[place] [address] PHYSICIAN PHYSICIAN THYROID 1 S FOR S FOR STIMULATI CHILDREN CHILDREN NG HORMONE TSH SKIN TEST 63358 PHYSICIAN EMILYCZ-ACEVEDO 1 S FOR LICZ [facility] TUBERCULO CHILDREN SIS INTRADERM AL BLOOD 43260 PHYSICIAN LINDA COUNT 1 S FOR LICZ [facility] COMPLETE CHILDREN AUTO&AUTO DIFRNTL WBC PURE TONE 10316 PHYSICIAN LINDA 1 S FOR L[facility] AUDIOMETR CHILDREN Y AIR ONLY SERVICES 55436 PHYSICIAN LINDA PROVIDED 1 S FOR LICZ [facility] OFFICE CHILDREN OTH/THN REG SCHED HOURS LEVEL III 50126 SHAYY [facility] SHE SURG 1 [facility] GROSS&KHUSHI ROSCOPIC EXAM INJECTION J2250 SHARONDA MCDONOUGH 1 [facility] MIDAZOLAM CENTER CENTER HCL PER 1 MG INJECTION J0690 SHARONDA MCDONOUGH 1 [facility] CEFAZOLIN CENTER CENTER SODIUM 500 MG EXC B9 45121 SHARONDA MCDONOUGH LESION 1 [facility] MRGN XCP CENTER CENTER SK TG T/A/L >4.0 CM RINGERS J7120 SHARONDA MCDONOUGH LACTATE 1 [facility] CENTER UP TO 1000 CC ANES 04201 SHARONDA VALDEZ LOAIZA INTEG 1 MEDICAL EXTREMITI CENTER ES ANT INC TRUNK & PERINEUM NOS EXC B9 58065 SHARONDA HAMLIN NORMA LESION 1 MRGN XCP WORSHIP SK [facility] T/A/L 3.1-4.0 CM URINE 42574 SHARONDA MCDONOUGH [facility] CENTER VISUAL COLOR CMPRSN METHS INJECTION [id number] SHARONDA MCDONOUGH FENTANYL 1 [facility] 0.1 MG CUL BACT 87942 SHARONDA MCDONOUGH XCPT 1 [facility] URINE CENTER LURAY BLOOD/STO OL AEROBIC ISOL IAADIADOO 93836 PHYSICIAN DUDYCZ-ACEVEDO 1 S FOR L[facility]Z [facility] INFLUENZA CHILDREN IAADIADOO 77511 PHYSICIAN DUDYCZ-ACEVEDO 1 S FOR LICZ [facility] STREPTOCO CHILDREN CCUS GROUP A BLOOD 83174 PHYSICIAN DUDYCZ-ACEVEDO COUNT 1 S FOR LICZ [facility] COMPLETE CHILDREN AUTO&AUTO DIFRNTL WBC SERVICES 27646 PHYSICIAN DUDYCZ-ACEVEDO PROVIDED 1 S FOR LIC[facility] OFFICE CHILDREN OTH/THN REG SCHED HOURS SERVICES 75719 PHYSICIAN DUDYCZ-ACEVEDO PROVIDED 1 S FOR [facility] OFFICE [place] [address] SHARONDA MCDONOUGH EXTREMITY 1 [facility] NON-VASC [facility] CENTER REAL-TIME IMG LMTD SERVICES 36325 PHYSICIAN DUDYCZ-ACEVEDO PROVIDED 1 S FOR LICZ [facility] OFFICE CHILDREN OTH/THN REG SCHED HOURS BLOOD 21035 PHYSICIAN DUDYCZ-ACEVEDO COUNT 1 S FOR LICZ [facility] COMPLETE CHILDREN AUTO&AUTO DIFRNTL WBC IAADIADOO 37958 PHYSICIAN DUDYCZ-ACEVEDO 1 S FOR LICZ [facility] STREPTOCO CHILDREN CCUS GROUP A IAADIADOO 30886 PHYSICIAN DUDYCZ-ACEVEDO 1 S FOR LICZ [facility] STREPTOCO CHILDREN CCUS GROUP A BLOOD 52281 PHYSICIAN DUDYCZ-ACEVEDO COUNT 1 S FOR LICZ [facility] COMPLETE CHILDREN AUTO&AUTO DIFRNTL WBC SERVICES 75661 PHYSICIAN DUDYCZ-ACEVEDO PROVIDED 1 S FOR LICZ [facility] OFFICE CHILDREN OTH/THN REG SCHED HOURS IAADIADOO 74901 PHYSICIAN DUDYCZ-ACEVEDO 1 S FOR LICZ [facility] INFLUENZA CHILDREN IAADIADOO 49452 PHYSICIAN LASHANDA 1 S FOR MUH STREPTOCO CHILDREN CCUS GROUP A US PELVIC 75625 SHARONDA GIRON 0 DEN NONOBSTET RADIOLOGY [facility] REAL-TIME IMAGE COMPLETE HEPA 40882 PHYSICIAN JEANNINE VACCINE 2 0 S FOR ROMAN DOSE CHILDREN SCHEDULE PED/ADOLE SC IM USE CULTURE 53628 SHARONDA MCDONOUGH BACTERIAL [address] [place] [address] QUANTTATI VE COLONY COUNT URINE IIV3 98372 PHYSICIAN JEANNINE VACCINE 0 S FOR ROMAN SPLIT CHILDREN VIRUS 0.5 ML DOSAGE IM USE URNLS DIP 21099 PHYSICIAN JEANNINE 0 S FOR ROMAN STICK/TAB CHILDREN LET RGNT NON-AUTO W/O MICRSCP SERVICES 83579 PHYSICIAN JEANNINE PROVIDED 0 S FOR ROMAN OFFICE CHILDREN OTH/THN REG SCHED HOURS URINE 04273 PHYSICIAN JEANNINE 0 S FOR ROMAN TEST CHILDREN VISUAL COLOR CMPRSN METHS RADEX 00079 SHARONDA MCDONOUGH ELBOW [address] [place] [address] MINIMUM 3 VIEWS BLOOD 12483 PHYSICIAN MILDRED-ACEVEDO COUNT 0 S FOR LICZ, COMPLETE CHILDREN NATALY AUTO&AUTO I DIFRNTL WBC SKIN TEST 37511 PHYSICIAN EMILYCZ-ACEVEDO 0 S FOR LICZ, TUBERCULO CHILDREN [place] [address] PHYSICIAN LETIACEVEDO THYROID 0 S FOR LICZ, STIMULATI CHILDREN NATALY NG I HORMONE TSH PURE TONE 60656 PHYSICIAN MILDRED-ACEVEDO 0 S FOR LICZ, AUDIOMETR CHILDREN NATALY Y AIR I ONLY LALA 65949 PHYSICIAN LETIACEVEDO VACCINE 0 S FOR LICZ, LIVE FOR CHILDREN NATALY SUBCUTANE I OUS USE RADEX 09599 SHARONDA MCDONOUGH FOREARM 2 0 [facility] RADEX 08697 SHARONDA MCDONOUGH WRIST 0 [facility] MINIMUM 3 VIEWS RADEX 19443 SHARONDA PENA, SPINE 0 JACKELINE Belcher THORACOLM RADIOLOGY BR [facility] STANDING SCOLIOSIS IMMUNOASS 72501 PHYSICIAN JEANNINE AY 9 S FOR THU INFECTIOU CHILDREN S AGENT ANTIBODY AMINTA NOS SPMTRY 37750 PHYSICIAN JEANNINE, W/VC 9 S FOR THU EXPIRATOR CHILDREN Y PETER W/WO MXML VOL VNTJ IAADIADOO 36258 PHYSICIAN JEANNINE, 9 S FOR THU INFLUENZA CHILDREN BRNCDILAT 91017 PHYSICIAN LASHANDA, RSPSE 9 S FOR LYNNE SPMTRY CHILDREN PRE&POST- BRNCDILAT ADMN SPMTRY 51729 PHYSICIAN JEANNINE, W/VC 9 S FOR THU EXPIRATOR CHILDREN Y PETER W/WO MXML VOL VNTJ SERVICES 41464 PHYSICIAN JEANNINE, PROVIDED 9 S FOR DANIEL S OFFICE CHILDREN OTH/THN REG SCHED HOURS SERVICES 54857 PHYSICIAN LASHANDA, PROVIDED 9 S FOR LYNNE OFFICE CHILDREN OTH/THN REG SCHED HOURS IAADIADOO 86605 PHYSICIAN LASHANDA, 9 S FOR LYNNE INFLUENZA CHILDREN BLOOD 62623 PHYSICIAN LASHANDA, COUNT 9 S FOR LYNNE COMPLETE CHILDREN AUTO&AUTO DIFRNTL WBC IAADIADOO 98819 PHYSICIAN JEANNINE, 9 S FOR DANIEL S INFLUENZA CHILDREN IIV3 10174 PHYSICIAN JEANNINE, VACCINE 9 S FOR DANIEL S SPLIT CHILDREN VIRUS 0.5 ML DOSAGE IM USE IMMUNOASS 72019 PHYSICIAN PAEZ AY 9 S FOR THU INFECTIOU CHILDREN S AGENT ANTIBODY AMINTA NOS HEPA 08409 PHYSICIAN JEANNINE, VACCINE 2 9 S FOR THU DOSE CHILDREN SCHEDULE PED/ADOLE SC IM USE PURE TONE 54223 PHYSICIAN JEANNINE, 9 S FOR THU AUDIOM[place] [address] PHYSICIAN PAEZ THYROID 9 S FOR THU STIMULATI CHILDREN NG HORMONE TSH BLOOD 45494 PHYSICIAN JEANNINE, COUNT 9 S FOR THU COMPLETE CHILDREN AUTO&AUTO DIFRNTL WBC SKIN TEST 04704 PHYSICIAN JEANNINE, 9 S FOR THU TUBERCULO CHILDREN SIS INTRADERM AL URINLS 99455 PHYSICIAN JEANNINE, DIP 9 S FOR THU STICK/TAB CHILDREN LET REAGNT NON-AUTO MICRSCPY 4VHPV 32333 PHYSICIAN LASHANDA, VACCINE 3 9 S FOR LYNNE DOSE CHILDREN SCHEDULE FOR IM USE SERVICES 01541 PHYSICIAN LASHANDA, PROVIDED 9 S FOR LYNNE OFFICE CHILDREN OTH/THN REG SCHED HOURS IMMUNOASS 60972 PHYSICIAN JEANNINE, AY 9 S FOR DANIEL S INFECTIOU CHILDREN S AGENT ANTIBODY AMINTA NOS LAIV3 92323 PHYSICIAN JEANNINE, VACCINE 8 S FOR THU LIVE FOR CHILDREN INTRANASA L USE URINLS 13162 PHYSICIAN JEANNINE, DIP 8 S FOR DANIEL S STICK/TAB CHILDREN LET REAGNT NON-AUTO MICRSCPY IMMUNOASS 17479 PHYSICIAN JEANNINE, AY 8 S FOR DANIEL S INFECTIOU CHILDREN S AGENT ANTIBODY AMINTA NOS SERVICES 82544 PHYSICIAN JEANNINE, PROVIDED 8 S FOR DANIEL S OFFICE CHILDREN OTH/THN REG SCHED HOURS RADEX 33972 SHARONDA MCDONOUGH FOOT [address] [place] [address] MINIMUM 3 VIEWS COLLECTIO 75791 SHARONDA MCDONOUGH N VENOUS [address] [place] [address] [facility] [place] [address] SHARONDA MCDONOUGH THYROID [address] [place] [address] STIMULATI [facility] NG HORMONE TSH RADEX 34678 SHARONDA VANEGAS, SPINE BRUCE A THORACOLM RADIOLOGY BR PLL[facility] STANDING SCOLIOSIS LIPID 89175 SHARONDA MCDONOUGH PANEL [address] [place] [address] GLUCOSE 01179 SHARONDA MCDONOUGH QUANTITAT [address] [place] [address] VALENTINE BLOOD [facility] XCPT REAGENT STRIP URINLS 96991 PHYSICIAN LASHANDA, DIP 8 S FOR LYNNE STICK/TAB CHILDREN LET REAGNT NON-AUTO MICRSCPY PURE TONE 83295 PHYSICIAN LASHANDA, 8 S FOR LYNNE AUDIOMETR CHILDREN Y AIR ONLY BLOOD 81082 PHYSICIAN LASHANDA, COUNT 8 S FOR LYNNE COMPLETE CHILDREN AUTO&AUTO DIFRNTL WBC SKIN TEST 17910 PHYSICIAN LASHANDA, 8 S FOR LYNNE TUBERCULO CHILDREN SIS INTRADERM AL RADEX 42404 SHARONDA CELAYA, SPINE 8 [facility] LUMBOS[facility] MINIMUM 4 VIEWS RADEX 71920 HSARONDA CELAYA, SPINE 8 [facility] THORACIC RADIOLOGY 2 VIEWS PLLC 4VHPV 36968 PHYSICIAN JEANNINE, VACCINE 3 8 S FOR DANIEL S DOSE CHILDREN SCHEDULE FOR IM USE SERVICES 56529 PHYSICIAN JEANNINE PROVIDED 8 S FOR DANIEL S OFFICE CHILDREN OTH/THN REG SCHED HOURS RADEX 13846 SHARONDA CELAYA, SPINE 8 [facility] CERVICAL RADIOLOGY 2 OR 3 PLLC VIEWS RADEX 26027 SHARONDA CELAYA SPINE 8 [facility] 2 VIEWS PLLC 4VHPV 47296 PHYSICIAN LASHANDA, VACCINE 3 8 S FOR LYNNE DOSE CHILDREN SCHEDULE FOR IM USE TDAP 76014 PHYSICIAN LASHANDA, VACCINE 7 8 S FOR LYNNE YRS/> IM CHILDREN MCV4 51407 PHYSICIAN LASHANDA, MENACWY 8 S FOR LYNNE CONJ VACC CHILDREN GRPS [id number] IM USE Encounters Encounter Start End Date Code Location Performer Type Date PERIODIC 50071 MARI MARI PREVENTIV 5 5 [facility] PATIENT SHARONDA MCDONOUGH 18-39 YRS OFFICE 80320 PHYSICIAN LASHANDA OUTPATIEN 5 5 S FOR MUH T VISIT CHILDREN 15 MINUTES OFFICE 28931 PHYSICIAN LASHANDA OUTPATIEN 5 5 S FOR MUH T VISIT CHILDREN 15 MINUTES OFFICE 55101 PHYSICIAN MAGDI OUTPATIEN 4 4 S FOR CHR T VISIT CHILDREN 15 MINUTES OFFICE 82473 PHYSICIAN MAGDI OUTPATIEN 4 4 S FOR CHR T VISIT CHILDREN 15 MINUTES OFFICE 03284 MARI GUERRA OUTPATIEN 4 4 [facility] T VISIT [facility]ALTH [facility]ALTH 10 SHARONDA MCDONOUGH [facility] PERIODIC 15810 LASHANDA LASHANDA PREVENTIV 4 4 [facility] E MED EST PATIENT OFFICE 24242 MARI GUERRA OUTPATIEN 4 4 [facility] T VISIT [facility]ALTH [facility]ALTH 15 SH[facility]ONDA [facility] MINUTES OFFICE 18194 LASHANDA LASHANDA OUTPATIEN 4 4 [facility] T VISIT 15 MINUTES OFFICE 30574 MARI GUERRA OUTPATIEN 4 4 [facility] T VISIT [facility] 10 SHARONDA MCDONOUGH [facility] [place] - [facility] 3 [facility] T OFFICE 32981 DUDYCZ-ACEVEDO DUDYCZ-ACEVEDO OUTPATIEN 3 3 [facility] LICZ [facility] T VISIT 15 MINUTES OFFICE 53565 DUDYCZ-ACEVEDO DUDYCZ-ACEVEDO OUTPATIEN 3 3 [facility] LICZ [facility]LIN T VISIT 15 MINUTES OFFICE 93112 LASHANDA LASHANDA OUTPATIEN 3 3 [facility] T VISIT 15 MINUTES OFFICE 46318 JEANNINE JEANNINE OUTPATIEN 3 3 SEE SEE T VISIT 15 MINUTES OFFICE 31768 LASHANDA LASHANDA OUTPATIEN 3 3 [facility] T VISIT 15 MINUTES OFFICE 58782 LASHANDA LASHANDA OUTPATIEN 3 3 [facility] T VISIT 15 MINUTES [facility] [place] [facility] T OFFICE 57851 JEANNINE JEANNINE OUTPATIEN 3 3 SEE SEE T VISIT 15 MINUTES OFFICE 43117 DUDYCZ-ACEVEDO DUDYCZ-ACEVEDO OUTPATIEN 3 3 [facility] T VISIT 15 MINUTES PERIODIC 98372 MARI GUERRA PREVENTIV 3 3 [facility] E [facility] HEALTH PATIENT SHARONDA MCDONOUGH 12-17YRS OFFICE 04597 MARI GUERRA OUTPATIEN 3 3 [facility] T VISIT [facility] 10 HIGH LJ HIGH LJ MINUTES OFFICE 76864 LASHANDA LASHANDA OUTPATIEN 3 3 [facility] MU T VISIT 15 MINUTES OFFICE 28906 MARI GUERRA OUTPATIEN 3 3 [facility] T VISIT [facility] 10 SHARONDA MCDONOUGH MINUTES OFFICE 24528 LASHANDA LASHANDA OUTPATIEN 3 3 MU MU T VISIT 15 MINUTES OFFICE 74045 LASHANDA LASHANDA OUTPATIEN 3 3 MU MU T VISIT 15 MINUTES OFFICE 40184 MARI GUERRA OUTPATIEN 2 2 [facility] T VISIT [facility] 10 SHARONDA MCDONOUGH MINUTES OFFICE 13976 JEANNINE PAEZ OUTPATIEN 2 2 [facility] T VISIT 15 MINUTES [facility] [place] [facility] T OFFICE 38952 ADAN AAR ADAN AAR OUTPATIEN 2 2 T VISIT 10 MINUTES OFFICE 25442 MARI GUERRA OUTPATIEN 2 2 [facility] T VISIT [facility] 15 HIGH LJ HIGH LJ MINUTES OFFICE 44531 LASHANDA LASHANDA OUTPATIEN 2 2 [facility] MU T VISIT 15 MINUTES [facility] [place] [facility] T OFFICE 48581 DUDYCZ-ACEVEDO DUDYCZ-ACEVEDO OUTPATIEN 2 2 [facility] JONOZ [facility]LIN T VISIT 15 MINUTES OFFICE 40975 MARI GUERRA OUTPATIEN 2 2 [facility] T VISIT [facility] HEALTH 10 SHARONDA MCDONOUGH MINUTES OFFICE 88320 LASHANDA LASHANDA OUTPATIEN 2 2 [facility] T VISIT 15 MINUTES [facility] [place] [facility] T OFFICE 55830 FITZ BYRNES OUTPATIEN 2 2 [facility] T NEW 30 MINUTES OFFICE 65901 DUDYCZ-ACEVEDO DUDYCZ-ACEVEDO OUTPATIEN 2 2 [facility] LICZ [facility] T VISIT 15 MINUTES OFFICE 43595 LASHANDA LASHANDA OUTPATIEN 2 2 [facility] T VISIT 15 MINUTES [facility] [place] [facility] 2 [facility] T PERIODIC 08167 JEANNINE JEANNINE PREVENTIV 2 2 SEE SEE E MED EST PATIENT [facility] [place] [facility] T OFFICE 01671 MARI GUERRA OUTPATIEN 2 2 [facility] T VISIT 5 HEALTH HEALTH MINUTES SHARONDA MCDONOUGH PERIODIC 82007 MARI GUERRA PREVENTIV 2 2 [facility] E MED EST HEALTH HEALTH PATIENT SHARONDA MCDONOUGH S OFFICE 34775 LASHANDA LASHANDA OUTPATIEN 2 2 [facility] T VISIT 15 MINUTES OFFICE 57362 MARI GUERRA OUTPATIEN 2 2 [facility] T VISIT [facility]ALTH [facility]ALTH 10 SHARONDA MCDONOUGH MINUTES OFFICE 48608 DUDYCZ-ACEVEDO DUDYCZ-ACEVEDO OUTPATIEN 2 2 [facility] LICZ [facility] T VISIT 15 MINUTES OFFICE 49199 MARI MARI OUTPATIEN 2 2 [facility] T VISIT [facility]ALTH [facility]ALTH 10 SHARONDA MCDONOUGH MINUTES OFFICE 43388 MARI MARI OUTPATIEN 1 1 [facility] T VISIT [facility]ALTH [facility]ALTH 10 SHARONDA MCDONOUGH MINUTES OFFICE 59734 PHYSICIAN MILDRED-ACEVEDO OUTPATIEN 1 1 S FOR LICZ [facility]LIN T VISIT CHILDREN 15 MINUTES OFFICE 48044 PHYSICIAN LASHANDA OUTPATIEN 1 1 S FOR MUH T VISIT CHILDREN 15 MINUTES PERIODIC 56411 MARI GUERRA PREVENTIV 1 1 [facility] E [facility] HEALTH PATIENT SHARONDA MCDONOUGH 12-17YRS PERIODIC 07755 PHYSICIAN LINDA PREVENTIV 1 1 S FOR LICZ [facility] E MED EST CHILDREN PATIENT 12-17YRS OFFICE [address] OUTPATIEN 1 1 MEDICAL T VISIT CENTER 15 [facility] [place] - 1 1 [facility]EN [facility]ENTER [facility] [place] [facility] 1 [facility] CENTER OFFICE [address] OUTPATIEN 1 1 MEDICAL T NEW 45 C[facility] [place] - 1 1 MEDICAL OUTPATIEN CENTER OFFICE 72566 PHYSICIAN DUDYCZ-ACEVEDO OUTPATIEN 1 1 S FOR LICZ [facility]LIN T VISIT CHILDREN 15 MINUTES OFFICE 73776 PHYSICIAN DUCARLIN-ACEVEDO OUTPATIEN 1 1 S FOR LICZ [facility] T VISIT CHILDREN 15 MINUTES OFFICE 45894 PHYSICIAN LASHANDA OUTPATIEN 1 1 S FOR MUH T VISIT CHILDREN 15 MINUTES OFFICE 63904 PHYSICIAN LASHANDA OUTPATIEN 1 1 S FOR MUH T VISIT CHILDREN 15 MINUTES OFFICE 69128 PHYSICIAN LASHANDA OUTPATIEN 0 0 S FOR MUH T VISIT CHILDREN 15 MINUTES [facility] [place] [facility] 0 [facility] [place] [facility] 0 [facility] [place] - 0 0 [facility] OUTPATIEN CENTER T EMERGENCY 59289 [place] 0 0 [facility] CENTER T VISIT MODERATE SEVERITY PERIODIC 45017 PHYSICIAN LINDA PREVENTIV 0 0 S FOR LICZ, E MED EST CHILDREN NATALY PATIENT I 12-17YRS OFFICE 38205 PHYSICIAN NADINE PAEZPATIGREGORY 0 0 S FOR THU T VISIT CHILDREN 15 MINUTES [facility] [place] [facility] 11374 [facility] 0 0 EMERGENCY , [facility] SERVICES L T VISIT MODERATE ASSOCIATE SEVERITY S [facility] [place] [facility] 0 [facility] T [facility] [place] [facility] 51734 PHYSICIAN JEANNINE OUTPATIEN 0 0 S FOR THU T VISIT CHILDREN 15 MINUTES OFFICE 18248 PHYSICIAN JEANNINE OUTPATIEN 9 9 S FOR THU T VISIT CHILDREN 15 MINUTES OFFICE 98774 PHYSICIAN LASHANDA OUTPATIEN 9 9 S FOR LYNNE T VISIT CHILDREN 15 MINUTES OFFICE 95818 PHYSICIAN JEANNINE OUTPATIEN 9 9 S FOR THU T VISIT CHILDREN 15 MINUTES OFFICE 69182 PHYSICIAN JEANNINE OUTPATIEN 9 9 S FOR DANIEL S T VISIT CHILDREN 15 MINUTES OFFICE 63804 PHYSICIAN JEANNINE OUTPATIEN 9 9 S FOR DANIEL S T VISIT CHILDREN 10 MINUTES OFFICE 76299 PHYSICIAN JEANNINE OUTPATIEN 9 9 S FOR THU T VISIT CHILDREN 15 MINUTES PERIODIC 87221 PHYSICIAN JEANNINE PREVENTIV 9 9 S FOR THU E MED EST CHILDREN PATIENT 12-17YRS OFFICE 50286 PHYSICIAN LASHANDA, OUTPATIEN 9 9 S FOR LYNNE T VISIT CHILDREN 15 MINUTES OFFICE 42270 PHYSICIAN LASHANDA OUTPATIEN 9 9 S FOR LYNNE T VISIT CHILDREN 15 MINUTES OFFICE 28177 [facility] OUT[facility] 9 9 [facility] [employer] [facility] BANK ACCT OFFICE 49407 PHYSICIAN DAYA PAEZ 9 9 S FOR DANIEL S T VISIT CHILDREN 15 MINUTES OFFICE 26140 PHYSICIAN NADINE PAEZPATIGREGORY 8 8 S FOR THU T VISIT CHILDREN 15 MINUTES EMERGENCY 92510 [place] 8 8 [facility]ICAL [facility] T VISIT MODERATE SEVERITY [facility] T [facility] [place] [facility] 08142 PHYSICIAN LASHANDA OUTPATIEN 8 8 S FOR LYNNE T VISIT CHILDREN 15 MINUTES OFFICE 33596 PHYSICIAN DAYA PAEZ 8 8 S FOR DANIEL S T VISIT CHILDREN 15 MINUTES [facility] [place] [facility] 83621 PHYSICIAN NADINE PAEZPATIGREGORY 8 8 S FOR DANIEL S T VISIT CHILDREN 15 MINUTES OFFICE 82231 PHYSICIAN LASHANDA OUTPATIEN 8 8 S FOR LYNNE T VISIT CHILDREN 15 MINUTES [facility] 26808 PHYSICIAN LASHANDA OUTPATIEN 8 8 S FOR LYNNE T VISIT CHILDREN 15 MINUTES
--- OUTSIDE RECORDS SUMMARY | 2017-01-28 12:49 | External Medical Summary Rpt ---
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 Supervisor Name Role Phone AJRAYSA NORMA, AJRAYSA NORMA [...] EMERGENCY Unavailable Unavailable SERVICES, [facility] [employer], Unavailable Unavailable [facility] [employer] COURTNEY LOAIZA, COURTNEY LOAIZA Unavailable Unavailable [facility], Unavailable [facility]available [facility] Unavailable Unavailable [facility]ILDR[facility], [facility] Unavailable Unavailable [facility], [facility] Unavailable Unavailable [facility], [facility] Unavailable Unavailable [facility] Unavailable Unavailable [facility] Unavailable [facility]available [facility] Unavailable Unavailable [facility] Unavailable Unavailable [facility] Unavailable [facility]available [facility] Unavailable Unavailable [facility], [facility] Unavailable [facility]available [facility] YOMI, ROSY, YOMI, Unavailable Unavailable ROSY [...] AL FOR PHARYNGITIS CHILDREN V2541 SURVEILLANC 01-05-[address] [facility] E [facility] PRESCRIBED [place] CONTRACEPT PILL V2689 OTHER 01-05-2015 [facility] HEALTH PROCREATIVE [place] MANAGEMENT 463 ACUTE 01-03-2015 [facility] TONSILLITIS FOR CHILDREN 7245 UNSPECIFIED 12-14-2014 [facility] BACKACHE FOR CHILDREN 27477 MIGRAINE 10-03-2014 [facility]ANS W/O AURA FOR W/O INTRACT CHILDREN W/O STAT MIGRNOSUS 88497 SPRAIN AND 10-03-2014 [facility]ANS STRAIN OF FOR 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 HAND 462 ACUTE 08-16-2014 [facility] PHARYNGITIS FOR CHILDREN 4659 ACUTE URIS 08-16-2014 [facility] OF FOR UNSPECIFIED CHILDREN SITE 0340 STREPTOCOCC 05-12-2014 PHYSICIANS AL SORE FOR THROAT CHILDREN V011 CONTACT 04-08-2014 [facility] WITH OR EXPOSURE TO TUBERCULOSI S V0184 CONTACT OR 04-08-2014 [facility] EXPOSURE TO MENINGOCOCC US V653 DIETARY 04-08-2014 [facility] SURVEILLANC E AND COUNSELING V6541 EXCERCISE 04-08-2014 [facility] COUNSELING V700 ROUTINE 04-08-2014 [facility] GENERAL MEDICAL EXAM@HEALTH CARE FACL V720 EXAMINATION 04-08-2014 [facility] OF EYES AND VISION V7219 OTHER 04-08-2014 [facility] EXAMINATION OF EARS AND HEARING V8554 BODY MASS 04-08-2014 [facility] INDEX PED >/EQUAL TO 95TH % AGE 4660 ACUTE 11-09-2013 [facility] BRONCHITIS 8489 UNSPECIFIED 11-09-2013 [facility] SITE OF SPRAIN AND STRAIN 50201 MASTODYNIA 08-20-2013 [facility] 95233 LUMP OR 08-20-2013 [facility] IN [facility] BREAST [facility] 6119 UN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[facility] DISORDER [facility] 7576 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[facility] CONGENITAL MEDICAL ANOMALIES CENTER OF BREAST 12706 OTHER 08-20-2013 [facility] ABNORMAL MEDICAL FINDING CENTER RADIOLOGICA L EXAM BREAST V725 RADIOLOGICA 08-20-2013 SETTLES II L BRYAN EXAMINATION NEC 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[facility]-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 55271 ASTHMA, 07-03-2013 JEANNINE UNSPECIFIED SEE , UNSPECIFIED STATUS 29618 UNSPECIFIED 06-26-2013 [facility] CONSTIPATIO N 50032 UNSPECIFIED 04-30-2013 [facility] OTALGIA 4779 ALLERGIC 04-30-2013 [facility] RHINITIS CAUSE UNSPECIFIED 42775 OBESITY, 04-17-2013 JEANNINE UNSPECIFIED SEE 55602 UNSPECIFIED 04-17-2013 JEANNINE VAGINITIS SEE AND VULVOVAGINI TIS 13918 SCOLIOSIS , 04-17-2013 JEANNINE IDIOPATHIC SEE 2662 OTHER 01-14-[address] [facility] B-COMPLEX HEALTH DEFICIENCIYuliya Walker V2549 SURVEILLANC 01-14-[address] [facility] E OT PREV HEALTH PRSC SHARONDA CONTRACEPT METHOD 9100 FCE 01-07-[address] [facility] NCK&SCLP NO CENTRAL EYE HIGH LJ ABRAS/FRIC BURN W/O INF 9597 INJURY 01-07-[address] [facility] OTHER&UNSPE CENTRAL CIFIED KNEE HIGH LJ LEG ANKLE&FOOT 7061 OTHER ACNE 12-19-2012 [facility] 920 CONTUSION 11-02-2012 D[facility]-INDU OF FACE CZ MERLIN SCALP AND NECK EXCEPT EYE 72894 ESOPHAGEAL 09-18-2012 [facility] REFLUX 4658 ACUTE URIS 09-01-2012 LASH[facility]DA MU OF OTHER MULTIPLE SITES 490 BRONCHITIS 09-01-2012 LASH[facility]DA MU NOT SPECIFIED ACUTE OR CHRONIC 3671 MYOPIA 08-20-2012 HIMA JAM 29685 DYSPHAGIA 07-10-2012 JEANNINE UNSPECIFIED ROMAN 7840 HEADACHE 06-20-2012 [facility] [place] [address]692 ABDOMINAL 06-13-2012 LASHANDA MU PAIN, UNSPECIFIED SITE 4619 ACUTE 04-25-2012 [facility] SINUSITIS, UNSPECIFIED 26525 PAIN IN 04-23-2012 [facility] LOWER LEG CENTER 7295 PAIN IN 03-25-2012 [facility] SOFT MEDICAL TISSUES OF POTTER LIMB 8448 SPRAIN&STRA 03-25-2012 [facility] IN OTHER MEDICAL SPECIFIED CENTER COREY SITES KNEE&LEG 41723 UNSPECIFIED 03-25-2012 [facility] SITE OF MEDICAL ANKLE CENTER COREY SPRAIN AND STRAIN 1121 CANDIDIASIS 02-14-2012 [facility]AGINA [facility] V0481 NEED 05-11-2011 [facility]ANS PROPHYLACTI FOR C CHILDREN VACCINATION &INOCULATIO N FLU V2502 GENERAL 03-14-[address] [facility] CNSL HEALTH INITIATION [facility] CONTRACEPT MEASURES 7062 SEBACEOUS 02-14-2011 [facility] CYST MEDICAL POTTER INC 6829 CELLULITIS 01-07-2011 [facility] AND ABSCESS MEDICAL HAWTHORN CENTER UNSPECIFIED SITE 38902 LEUKOCYTOPE 01-06-2011 PHYSICIANS TAZ FOR UNSPECIFIED CHILDREN 6822 CELLULITIS 12-29-2010 [facility] AND ABSCESS MEDICAL OF TRUNK CENTER 7822 LOCALIZED 12-29-2010 [facility] SUPERFICIAL MEDICAL SWELLING POTTER MASS OR [place] 4871 INFLUENZA 11-20-2010 [facility]ANS WITH OTHER FOR RESPIRATORY CHILDREN MANIFESTATI ONS V0389 NEED PROPH 05-17-2010 [facility]ANS VACC FOR AGAINST OTH CHILDREN SPEC VACC 73464 PAIN IN 05-11-2010 [facility] MEDICAL UPPER ARM CENTER 9593 INJURY 05-11-2010 [facility] OTHER&UNSPE MEDICAL CIFIED POTTER [facility]&WRI ST E8859 FALL FROM 05-11-2010 [facility] OTHER EMERGENCY SLIPPING SERVICES TRIPPING OR STUMBLING V054 NEED PROPH 03-08-2010 PH[facility]IC[facility]ANS VACC&INOCUL FOR AT AGAINST CHILDREN VARICELLA 59351 PAIN IN 11-15-2009 [facility] MEDICAL FOREARM CENTER 78875 SPRAIN AND 11-14-2009 [facility] STRAIN OF EMERGENCY UNSPECIFIED SERVICES SITE OF ASSOCIATES WRIST V6759 OTHER 10-17-2009 [facility] MEDICAL EXAMINATION CENTER OTHER 45006 EXTRINSIC 07-20-2009 PHYSICIANS ASTHMA, FOR WITH CHILDREN EXACERBATIO N 20171 UNSPECIFIED 06-27-2009 PH[facility]ANS VIRAL FOR INFECTION CHILDREN IN CCE & UNS SITE V202 ROUTINE 05-20-2009 PHYSICIANS INFANT OR FOR CHILD CHILDREN HEALTH CHECK V059 NEED PROPH 03-04-2009 PHYSICIANS VACC&INOCUL FOR [place] [address] DIARRHEA 02-11-2009 [facility] FOR CHILDREN 95774 CONTACT 12-13-2008 [facility] DERMATITIS& HEALTH OTHER CENTRAL [place] DUE BANK ACCT TO SUNBURN 9492 BLISTERS 12-11-2008 [facility]ANS W/EPIDERMAL FOR LOSS DUE CHILDREN BURN UNSPEC SITE 7048 OTHER 06-30-2008 [facility] SPECIFIED FOR DISEASE OF CHILDREN HAIR&HAIR FOLLICLES 30539 ACUTE 06-16-2008 [facility]ANS GASTRITIS FOR WITHOUT CHILDREN MENTION OF HEMORRHAGE 5997 HEMATURIA 06-16-2008 [facility] FOR [facility] 44195 CONTUSION 05-31-2008 [facility] EMERGENCY SERVICES [facility]OC[facility] 7231 CERVICALGIA [...] MG AD CA TA RE BL ET SC 00 07 07 30 30 TO 10 [...] CA 5 RE MG TA BL ET SC 00 03 06 30 30 TO 97 [...] 0 10 5 PI 53 DU Ac SC 00 -2 -2 .0 KE 04 DY [...] MM 5% AD CA GE RE L SC 00 03 03 30 30 TO 97 ID Ac NO 59 -0 -0 .0 TA 74 RE ti CY 15 4- 4- 00 L 42 ES ve CL 69 20 20 PH IN 40 11 11 AR MU E 1 MA BURNS 50 CY MM AD MG CA RE CA PS UL E SC 00 12 12 30 30 TO 96 ID Ac NO 59 -3 -3 .0 TA 46 RE ti CY 15 1- 1- 00 L 55 ES ve CL 69 20 20 PH IN 55 10 10 AR MU E 0 MA BURNS 10 CY MM 0 AD MG CA RE CA PS UL E SC 00 11 11 30 30 TO 95 ID Ac NO 59 -1 -1 .0 TA 61 RE ti CY 15 5- 5- 00 L 23 ES ve CL 69 20 20 PH IN 55 10 10 AR MU E 0 MA BURNS 10 CY MM 0 AD MG CA RE CA PS UL E SC 00 10 10 30 30 TO 95 [...] MM 5% AD CA GE RE L SC 00 03 05 30 30 TO 91 [...] RA CY KE SH CA S RE SC 00 03 03 30 30 TO 91 [...] RA CY KE SH CA S RE SC 00 08 10 01 30 30 TO [...] RA CY KE SH CA S RE SC 00 08 08 00 30 30 TO [...] Procedure DOS Code Location Performer Comment SERVICES 70754 PHYSICIAN DANA COLLINS PROVIDED 5 S FOR OFFICE CHILDREN OTH/THN REG SCHED HOURS IAADIADOO 72312 PHYSICIAN DANA COLLINS 5 S FOR STREPTOCO CHILDREN CCUS GROUP A IADNA 37484 MARI GUERRA CHLAMYDIA [address] [place] [address] TRACHOMAT SHARONDA MCDONOUGH IS AMPLIFIED PROBE TQ IADNA 92158 MARI GUERRA NEISSERIA 5 [facility] GONORRHOE SHARONDA MCDONOUGH AE AMPLIFIED PROBE TQ CONTRACEP S4993 [facility] SHARONDA MCDONOUGH CONTROL IAADIADOO 19584 PHYSICIAN LASHANDA 5 S FOR MUH STREPTOCO CHILDREN CCUS GROUP A SERVICES 32683 PHYSICIAN LASHANDA PROVIDED 5 S FOR MUH OFFICE CHILDREN OTH/THN REG SCHED HOURS IAADIADOO 22984 PHYSICIAN FAIRBANKS 4 S FOR CHR INFLUENZA CHILDREN IAADIADOO 36536 PHYSICIAN MAGDI 4 S FOR CHR STREPTOCO CHILDREN CCUS GROUP A CONTRACEP S4993 [facility] SHARONDA MCDONOUGH CONTROL MCV4 58284 LASHANDA LASHANDA MENACWY 4 [facility] CONJ VACC GRPS ACYW-135 IM USE SCREENING 70985 LASHANDA LASHANDA TEST 4 [facility] VISUAL ACUITY QUANTITAT VALENTINE BILAT PURE TONE 40628 LASHANDA LASHANDA 4 [facility] AUDIOMETR Y AIR ONLY SKIN TEST 74239 LASHANDA LASHANDA 4 [facility] TUBERCULO SIS INTRADERM AL BLOOD 59099 LASHANDA LASHANDA COUNT 4 [facility] COMPLETE AUTO&AUTO DIFRNTL WBC CONTRACEP S4993 [facility] SHAR[facility]DA MCDONOUGH CONTROL IAADIADOO 32972 LASHANDA LASHANDA 4 [facility] STREPTOCO CCUS GROUP A CONTRACEP S4993 [facility] SHARONDA MCDONOUGH CONTROL US BREAST 01182 SETTLES SETTLES REAL 3 II BRYAN II BRYAN TIME W/IMAGE DOCUMENTA TION URINE 42098 DUDYCZ-ACEVEDO DUDYCZ-ACEVEDO 3 LICZ MERLIN LICZ MERLIN TEST VISUAL COLOR CMPRSN METHS IAADIADOO 45637 LASHANDA LASHANDA 3 [facility] STREPTOCO CCUS GROUP A URNLS DIP 52576 LASHANDA LASHANDA 3 [facility] STICK/TAB LET RGNT NON-AUTO W/O MICRSCP GLUCOSE 78466 SHEFALIBALACLARE MEEHANKAYLI QUANTITAT [address] [facility] BLOOD [facility] XCPT REAGENT STRIP RADEX 85456 WELLS BRA WELLS BRA SPINE 3 THORACOL[place] [address] SHEFALIKAYLI MCDONOUGH THYROXINE 3 [facility] TOTAL [facility] LIPID 19371 SHEFALIKAYLI SHEFALIBALACLARE PANEL 3 [facility] COLLECTIO 66657 SHEFALIBALACLARE MEEHANBALACLARE N VENOUS 3 [facility] BLOOD [facility] [place] [address] SHARONDA MCDONOUGH THYROID [address] [place] [address] NG HORMONE TSH IAADIADOO 46327 DUDYCZ-ACEVEDO DUDYCZ-ACEVEDO 3 LICZ MERLIN LICZ MERLIN STREPTOCO CCUS GROUP A INJECTION J1050 MARI GUERRA [address] [place] [address] SHARONDA MCDONOUGH E ACETATE 1 MG URINE 29306 MARI GUERRA [address] [place] [address] VISUAL SHARONDA MCDONOUGH COLOR CMPRSN METHS SERVICES 37620 DUDYCZ-ACEVEDO DUDYCZ-ACEVEDO PROVIDED 3 LICZ MERLIN LICZ MERLIN OFFICE OTH/THN REG SCHED HOURS INJECTION J1050 MARI GUERRA [address] [place] [address] [facility] SHARONDA E ACETATE 1 MG IAADIADOO 34061 LASHANDA LASHANDA 3 [facility] STREPTOCO CCUS GROUP A OPHTH 19016 HIMA KULWINDER MIRAMONTES MEDICAL 2 XM&EVAL INTERMEDI ATE NEW PT DETERMINA 44880 HIMA MIRAMONTES TION 2 REFRACTIV E STATE INJ J1055 MARI GUERRA MDRXYPRGE [address] [place] [address] ACTAT [facility] CNTRACPT USE 150 MG IADNA 01041 SHARONDA MCDONOUGH CHLAMYDIA 2 [facility] CENTER POTTER TRACHOMAT IS AMPLIFIED PROBE TQ IADNA 58313 SHARONDA MCDONOUGH SHEA 2 [facility] SPECIES CENTER CENTER AMPLIFIED PROBE TQ IADNA NOS 89473 SHARONDA MCDONOUGH 2 [facility] MEDICAL AMPLIFIED CENTER CENTER PROBE TQ EACH ORGANISM IADNA 88769 SHEFALIBALACLARE MEEHANKAYLI NEISSERIA 2 [facility] GONORRHOE AE AMPLIFIED PROBE TQ CULTURE 60616 SHARONDA MCDONOUGH BACTERIAL 2 [facility] QUANTTATI VE COLONY COUNT URINE URNLS DIP 63565 SHARONDA MEEHANKAYLI [address] [place] [address] STICK/TAB CENTER CENTER LET REAGENT AUTO MICROSCOP Y SERVICES 35477 DUDYCZ-ACEVEDO DUDYCZ-ACEVEDO PROVIDED 2 LICZ MERLIN LICZ MERLIN OFFICE OTH/THN REG SCHED HOURS BLOOD 78412 DUDYCZ-ACEVEDO DUDYCZ-ACEVEDO COUNT 2 LICZ MERLIN LICZ MERLIN COMPLETE AUTO&AUTO DIFRNTL WBC SERVICES 99278 LASHANDA LASHANDA PROVIDED 2 [facility] OFFICE OTH/THN REG SCHED HOURS IAADIADOO 48087 LASHANDA LASHANDA 2 [facility] STREPTOCO CCUS GROUP A INJ J1055 MARI GUERRA MDRXYPRGE [address] [place] [address] ACTAT SHARONDA MCDONOUGH CNTRACPT USE 150 MG IAADIADOO 35104 LASHANDA LASHANDA 2 [facility] STREPTOCO CCUS GROUP A PHYSICAL 44253 SHARONDA MCDONOUGH THERAPY 2 [facility] MEDICAL EVALUATIO CENTER CENTER N KNEE L1810 SHARONDA MCDONOUGH ORTHOSIS 2 [facility] ELASTIC CENTER POTTER JOINTS COREY COREY PREFAB CUSTOM FIT RADIOLOGI 59987 SHARONDA MCDONOUGH C EXAM 2 [facility] KNEE CENTER POTTER COMPLETE 4/MORE VIEWS RADEX 08338 SHARONDA MCDONOUGH ANKLE 2 [facility] MEDICAL COMPLETE POTTER CENTER MINIMUM 3 VIEWS ANKLE L4350 SHARONDA MCDONOUGH CONTROL 2 [facility] CENTER STIRRUP COREY COREY STYL RIGID PREFAB LIPID 83532 SHARONDA MCDONOUGH PANEL 2 [facility] [place] [place] [address] SHARONDA MCDONOUGH THYROXINE 2 [facility] TOTAL POTTER CENTER COLLECTIO 11803 SHARONDA MCDONOUGH N VENOUS 2 [facility] VENIPUNCT URE BLOOD 56195 JEANNINE JEANNINE COUNT 2 SEE SEE COMPLETE AUTO&AUTO DIFRNTL WBC SKIN TEST 73929 JEANNINE JEANNINE 2 SEE SEE TUBER[place] [address] MAGNOLIACLARE SHARONDA TRIIODOTH 2 [facility] [place] T3 [place] [address] JEANNINE JEANNINE THYROID 2 SEE SEE STIMULATI NG HORMONE TSH PURE TONE 77554 JEANNINE JEANNINE 2 SEE SEE AUDIOMETR Y AIR ONLY URNLS DIP 33031 JEANNINE JEANNINE 2 SEE SEE STICK/TAB LET RGNT NON-AUTO W/O MICRSCP GLUCOSE 30012 SHARONDA MCDONOUGH QUANTITAT 2 [facility] XCPT REAGENT STRIP INJ J1055 MARI GUERRA MDRXYPRGE 2 [facility] SH[facility] MCDONOUGH CNTRACPT USE 150 MG INJ J1055 MARI GUERRA MDRXYPRGE 2 [facility] ACTAT SHARONDA MCDONOUGH CNTRACPT USE 150 MG IAADIADOO 31033 DUDYCZ-ACEVEDO DUDYCZ-ACEVEDO 2 LICZ MERLIN LICZ MERLIN STREPTOCO CCUS GROUP A INJ J1055 MARI GUERRA MDRXYPRGE 2 [facility] ACTAT SHEFALIKAYLI SHEFALIBALACLARE CNTRACPT USE 150 MG INJ J1055 MARI GUERRA MDRXYPRGE 1 [facility] ACTAT SHEFALIKAYLI SHEFALIKAYLI CNTRACPT USE 150 MG IAADIADOO 99600 PHYSICIAN DUDYCZ-ACEVEDO 1 S FOR LICZ MERLIN STREPTOCO CHILDREN CCUS GROUP A IIV3 68814 PHYSICIAN LASHANDA VACCINE 1 S FOR MUH SPLIT CHILDREN VIRUS 0.5 ML DOSAGE IM USE INJ J1055 MARI GUERRA MDRXYPRGE 1 [facility] ACTAT SHARONDA MEEHANBALACLARE CNTRACPT USE 150 MG BLOOD 78453 MARI GUERRA COUNT 1 [facility] HEMOGLOBI Poppin [facility] N SHARONDA MCDONOUGH URINE 44503 MARI GUERRA 1 [facility] SHEFALIKAYLI [place]IDACL[place] [address] PHYSICIAN PHYSICIAN THYROID 1 S FOR S FOR STIMULATI CHILDREN CHILDREN NG HORMONE TSH SKIN TEST 92853 PHYSICIAN EMILYCZ-ACEVEDO 1 S FOR LICZ MERLIN TUBERCULO CHILDREN SIS INTRADERM AL BLOOD 80728 PHYSICIAN LINDA COUNT 1 S FOR LICZ [facility]LIN COMPLETE CHILDREN AUTO&AUTO DIFRNTL WBC PURE TONE 12645 PHYSICIAN LINDA 1 S FOR LICZ MERLIN AUDIOMETR CHILDREN Y AIR ONLY SERVICES 23206 PHYSICIAN LINDA PROVIDED 1 S FOR LICZ MERLIN OFFICE CHILDREN OTH/THN REG SCHED HOURS LEVEL III 65326 SHAYY [facility] SHE SURG 1 [facility] PSC GROSS&KHUSHI ROSCOPIC EXAM INJECTION J2250 SHARONDA MCDONOUGH 1 [facility] MIDAZOLAM CENTER CENTER HCL PER 1 MG INJECTION J0690 SHARONDA MCDONOUGH 1 [facility] CEFAZOLIN CENTER CENTER SODIUM 500 MG EXC B9 42933 SHARONDA MCDONOUGH LESION 1 MEDICAL MEDICAL MRGN XCP CENTER CENTER SK TG T/A/L >4.0 CM RINGERS J7120 SHARONDA MCDONOUGH LACTATE 1 [facility]ICAL INFUSION CENTER CENTER UP TO 1000 CC ANES 29716 SHARONDA VALDEZ LOAIZA INTEG 1 MEDICAL EXTREMITI CENTER ES ANT INC TRUNK & PERINEUM NOS EXC B9 08884 SHARONDA HAMLIN NORMA LESION 1 [facility]GN XCP [facility] T/A/L 3.1-4.0 CM URINE 95466 SHARONDA MCDONOUGH 1 MEDICAL MEDICAL TEST CENTER CENTER VISUAL COLOR CMPRSN METHS INJECTION J3010 SHARONDA MCDONOUGH FENTANYL 1 [facility] CITRATE [facility] 0.1 MG CUL BACT 73589 SHAORNDA MCDONOUGH XCPT 1 [facility] URINE CENTER POTTER BLOOD/STO OL AEROBIC ISOL IAADIADOO 55914 PHYSICIAN DUDYCZ-ACEVEDO 1 S FOR LICZ MERLIN INFLUENZA CHILDREN IAADIADOO 67044 PHYSICIAN DUDYCZ-ACEVEDO 1 S FOR LICZ MERLIN STREPTOCO CHILDREN CCUS GROUP A BLOOD 07875 PHYSICIAN DUDYCZ-ACEVEDO COUNT 1 S FOR LICZ MERLIN COMPLETE CHILDREN AUTO&AUTO DIFRNTL WBC SERVICES 25042 PHYSICIAN DUDYCZ-ACEVEDO PROVIDED 1 S FOR LICZ MERLIN OFFICE CHILDREN OTH/THN REG SCHED HOURS SERVICES 76161 PHYSICIAN DUDYCZ-ACEVEDO PROVIDED 1 S FOR LICZ MERLIN OFFICE [place]DR[place] [address] SHARONDA MCDONOUGH EXTREMITY 1 [facility] NON-VASC POTTER CENTER REAL-TIME IMG LMTD SERVICES 46437 PHYSICIAN DUDYCZ-ACEVEDO PROVIDED 1 S FOR LICZ MERLIN OFFICE CHILDREN OTH/THN REG SCHED HOURS BLOOD 03061 PHYSICIAN DUDYCZ-ACEVEDO COUNT 1 S FOR LICZ MERLIN COMPLETE CHILDREN AUTO&AUTO DIFRNTL WBC IAADIADOO 29387 PHYSICIAN DUDYCZ-ACEVEDO 1 S FOR LICZ MERLIN STREPTOCO CHILDREN CCUS GROUP A IAADIADOO 33595 PHYSICIAN DUDYCZ-ACEVEDO 1 S FOR LICZ MERLIN STREPTOCO CHILDREN CCUS GROUP A BLOOD 95295 PHYSICIAN DUDYCZ-ACEVEDO COUNT 1 S FOR LICZ MERLIN COMPLETE CHILDREN AUTO&AUTO DIFRNTL WBC SERVICES 10565 PHYSICIAN DUDYCZ-ACEVEDO PROVIDED 1 S FOR LICZ MERLIN OFFICE CHILDREN OTH/THN REG SCHED HOURS IAADIADOO 66621 PHYSICIAN DUDYCZ-ACEVEDO 1 S FOR LICZ MERLIN INFLUENZA CHILDREN IAADIADOO 47624 PHYSICIAN LASHANDA 1 S FOR MUH STREPTOCO CHILDREN CCUS GROUP A US PELVIC 38389 SHARONDA GIRON 0 DEN NONOBSTET RADIOLOGY [facility] REAL-TIME IMAGE COMPLETE HEPA 09798 PHYSICIAN JEANNINE VACCINE 2 0 S FOR ROMAN DOSE CHILDREN SCHEDULE PED/ADOLE SC IM USE CULTURE 24705 SHARONDA MCDONOUGH BACTERIAL [address] [place] [address] QUANTTATI VE COLONY COUNT URINE IIV3 90953 PHYSICIAN JENANINE VACCINE 0 S FOR ROMAN SPLIT CHILDREN VIRUS 0.5 ML DOSAGE IM USE URNLS DIP 75651 PHYSICIAN JEANNINE 0 S FOR ROMAN STICK/TAB CHILDREN LET RGNT NON-AUTO W/O MICRSCP SERVICES 54266 PHYSICIAN JEANNINE PROVIDED 0 S FOR ROMAN OFFICE CHILDREN OTH/THN REG SCHED HOURS URINE 91532 PHYSICIAN JEANNINE 0 S FOR ROMAN TEST CHILDREN VISUAL COLOR CMPRSN METHS RADEX 46950 SHARONDA MCDONOUGH [place] [address] [place] [address] MINIMUM 3 VIEWS BLOOD 73884 PHYSICIAN MILDRED-ACEVEDO COUNT 0 S FOR LICZ, COMPLETE CHILDREN NATALY AUTO&AUTO I DIFRNTL WBC SKIN TEST 04156 PHYSICIAN EMILYCZ-ACEVEDO 0 S FOR LICZ, TUBERCULO CHILDREN NAT[place] [address] PHYSICIAN LETIACEVEDO THYROID 0 S FOR LICZ, STIMULATI CHILDREN NATALY NG I HORMONE TSH PURE TONE 22993 PHYSICIAN MILDRED-ACEVEDO 0 S FOR LICZ, AUDIOMETR CHILDREN NATALY Y AIR I ONLY LALA 23595 PHYSICIAN LETIACEVEDO VACCINE 0 S FOR LICZ, LIVE FOR CHILDREN NATALY SUBCUTANE I OUS USE RADEX 62249 SHARONDA MCDONOUGH FOREARM 2 0 [facility] RADEX 99338 SHARONDA MCDONOUGH WRIST 0 [facility] MINIMUM 3 VIEWS RADEX 47858 SHARONDA PENA, SPINE 0 JACKELINE Belcher THORACOLM RADIOLOGY BR [facility] STANDING SCOLIOSIS IMMUNOASS 63403 PHYSICIAN JEANNINE AY 9 S FOR THU INFECTIOU CHILDREN S AGENT ANTIBODY AMINTA NOS SPMTRY 07095 PHYSICIAN JEANNINE, W/VC 9 S FOR THU EXPIRATOR CHILDREN Y EPTER W/WO MXML VOL VNTJ IAADIADOO 44091 PHYSICIAN JEANNINE, 9 S FOR THU INFLUENZA CHILDREN BRNCDILAT 21477 PHYSICIAN LASHANDA, RSPSE 9 S FOR LYNNE SPMTRY CHILDREN PRE&POST- BRNCDILAT ADMN SPMTRY 05231 PHYSICIAN JEANNINE, W/VC 9 S FOR THU EXPIRATOR CHILDREN Y PETER W/WO MXML VOL VNTJ SERVICES 28135 PHYSICIAN JEANNINE, PROVIDED 9 S FOR DANIEL S OFFICE CHILDREN OTH/THN REG SCHED HOURS SERVICES 59271 PHYSICIAN LASHANDA, PROVIDED 9 S FOR LYNNE OFFICE CHILDREN OTH/THN REG SCHED HOURS IAADIADOO 18534 PHYSICIAN LASHANDA, 9 S FOR LYNNE INFLUENZA CHILDREN BLOOD 62255 PHYSICIAN LASHANDA, COUNT 9 S FOR LYNNE COMPLETE CHILDREN AUTO&AUTO DIFRNTL WBC IAADIADOO 30583 PHYSICIAN JEANNINE, 9 S FOR DANIEL S INFLUENZA CHILDREN IIV3 80369 PHYSICIAN JEANNINE, VACCINE 9 S FOR DNAIEL S SPLIT CHILDREN VIRUS 0.5 ML DOSAGE IM USE IMMUNOASS 28547 PHYSICIAN PAEZ AY 9 S FOR THU INFECTIOU CHILDREN S AGENT ANTIBODY AMINTA NOS HEPA 73110 PHYSICIAN JEANNINE, VACCINE 2 9 S FOR THU DOSE CHILDREN SCHEDULE PED/ADOLE SC IM USE PURE TONE 11394 PHYSICIAN JEANNINE, 9 S FOR THU [place]UDIOM[place] [address] PHYSICIAN PAEZ THYROID 9 S FOR THU STIMULATI CHILDREN NG HORMONE TSH BLOOD 78974 PHYSICIAN JEANNINE, COUNT 9 S FOR THU COMPLETE CHILDREN AUTO&AUTO DIFRNTL WBC SKIN TEST 19454 PHYSICIAN JEANNINE, 9 S FOR THU TUBERCULO CHILDREN SIS INTRADERM AL URINLS 16264 PHYSICIAN JEANNINE, DIP 9 S FOR THU STICK/TAB CHILDREN LET REAGNT NON-AUTO MICRSCPY 4VHPV 33112 PHYSICIAN LASHANDA, VACCINE 3 9 S FOR LYNNE DOSE CHILDREN SCHEDULE FOR IM USE SERVICES 39877 PHYSICIAN LASHANDA, PROVIDED 9 S FOR LYNNE OFFICE CHILDREN OTH/THN REG SCHED HOURS IMMUNOASS 10226 PHYSICIAN JEANNINE, AY 9 S FOR DANIEL S INFECTIOU CHILDREN S AGENT ANTIBODY AMINTA NOS LAIV3 12415 PHYSICIAN JEANNINE, VACCINE 8 S FOR THU LIVE FOR CHILDREN INTRANASA L USE URINLS 76986 PHYSICIAN JEANNINE, DIP 8 S FOR DANIEL S STICK/TAB CHILDREN LET REAGNT NON-AUTO MICRSCPY IMMUNOASS 18433 PHYSICIAN JEANNINE, AY 8 S FOR DNAIEL S INFECTIOU CHILDREN S AGENT ANTIBODY AMINTA NOS SERVICES 25196 PHYSICIAN JEANNINE, PROVIDED 8 S FOR DANIEL S OFFICE CHILDREN OTH/THN REG SCHED HOURS RADEX 16565 SHARONDA MCDONOUGH FOOT [address] [place] [address] MINIMUM 3 VIEWS COLLECTIO 34770 SHARONDA MCDONOUGH N VENOUS [address] [place] [address] BLOOD [facility] [place] [address] SHARONDA MCDONOUGH THYROID [address] [place] [address] STIMULATI [facility] NG HORMONE TSH RADEX 09537 SHARONDA VANEGAS, SPINE BRUCE [facility] STANDING SCOLIOSIS LIPID 42976 SHARONDA MCDONOUGH PANEL [address] [place] [address] GLUCOSE 82821 SHARONDA MCDONOUGH QUANTITAT [address] [place] [address] VALENTINE BLOOD [facility] XCPT REAGENT STRIP URINLS 77547 PHYSICIAN LASHANDA, DIP 8 S FOR LYNNE STICK/TAB CHILDREN LET REAGNT NON-AUTO MICRSCPY PURE TONE 64140 PHYSICIAN LASHANDA, 8 S FOR LYNNE AUDIOMETR CHILDREN Y AIR ONLY BLOOD 52113 PHYSICIAN LASHANDA, COUNT 8 S FOR LYNNE COMPLETE CHILDREN AUTO&AUTO DIFRNTL WBC SKIN TEST 79095 PHYSICIAN LASHANDA, 8 S FOR LYNNE TUBERCULO CHILDREN SIS INTRADERM AL RADEX 73357 SHARONDA CELAYA, SPINE 8 [facility] MINIMUM 4 VIEWS RADEX 53054 SHARONDA CELAYA, SPINE 8 [facility] THORACIC RADIOLOGY 2 VIEWS PLLC 4VHPV 11366 PHYSICIAN JEANNINE, VACCINE 3 8 S FOR DANIEL S DOSE CHILDREN SCHEDULE FOR IM USE SERVICES 87640 PHYSICIAN JEANNINE PROVIDED 8 S FOR DANIEL S OFFICE CHILDREN OTH/THN REG SCHED HOURS RADEX 95710 SHARONDA CELAYA, SPINE 8 [facility] CERVICAL RADIOLOGY 2 OR 3 PLLC VIEWS RADEX 80662 SHARONDA CELAYA SPINE 8 [facility] THORACIC RADIOLOGY 2 VIEWS PLLC 4VHPV 23599 PHYSICIAN LASHANDA, VACCINE 3 8 S FOR LYNNE DOSE CHILDREN SCHEDULE FOR IM USE TDAP 98336 PHYSICIAN LASHANDA, VACCINE 7 8 S FOR LYNNE YRS/> IM CHILDREN MCV4 64331 PHYSICIAN LASHANDA, MENACWY 8 S FOR LYNNE CONJ VACC CHILDREN GRPS ACYW-135 IM USE Encounters Encounter Start End Date Code Location Performer Type Date PERIODIC 10090 MARI MARI PREVENTIV 5 5 [facility] PATIENT SHARONDA MCDONOUGH 18-39 YRS OFFICE 37534 PHYSICIAN LASHANDA OUTPATIEN 5 5 S FOR [facility] T VISIT CHILDREN 15 MINUTES OFFICE 80741 PHYSICIAN LASHANDA OUTPATIEN 5 5 S FOR [facility] T VISIT CHILDREN 15 MINUTES OFFICE 88834 PHYSICIAN MAGDI OUTPATIEN 4 4 S FOR [facility]R T VISIT CHILDREN 15 MINUTES OFFICE 26233 PHYSICIAN MAGDI OUTPATIEN 4 4 S FOR CHR T VISIT CHILDREN 15 MINUTES OFFICE 71401 MARI GUERRA OUTPATIEN 4 4 [facility] T VISIT HEALTH HEALTH 10 SHARONDA MCDONOUGH [facility] PERIODIC 74904 LASHANDA LASHANDA PREVENTIV 4 4 [facility] E MED EST PATIENT OFFICE 41060 MARI GUERRA OUTPATIEN 4 4 [facility] T VISIT HEALTH HEALTH 15 [facility] 55997 LASHANDA LASHANDA OUTPATIEN 4 4 [facility] T VISIT 15 MINUTES OFFICE 56492 MARI GUERRA OUTPATIEN 4 4 [facility] T VISIT [facility] 10 SHARONDA MCDONOUGH [facility] [place] - 3 3 [facility] T OFFICE 60943 DUDYCZ-ACEVEDO DUDYCZ-ACEEVDO OUTPATIEN 3 3 [facility] T VISIT 15 MINUTES OFFICE 79752 DUDYCZ-ACEVEDO [facility] OUTPATIEN 3 3 [facility] T VISIT 15 MINUTES OFFICE 97295 LASHANDA LASHANDA OUTPATIEN 3 3 [facility] T VISIT 15 MINUTES OFFICE 52943 JEANNINE JEANNINE OUTPATIEN 3 3 SEE SEE T VISIT 15 MINUTES OFFICE 65521 LASHANDA LASHANDA OUTPATIEN 3 3 [facility] T VISIT 15 MINUTES OFFICE 24981 LASHANDA LASHANDA OUTPATIEN 3 3 [facility] T VISIT 15 MINUTES [facility] [place] - [facility] T OFFICE 47142 JEANNINE JEANNINE OUTPATIEN 3 3 SEE SEE T VISIT 15 MINUTES OFFICE 33535 DUDYCZ-ACEVEDO DUDYCZ-ACEVEDO OUTPATIEN 3 3 [facility] T VISIT 15 MINUTES PERIODIC 33521 MARI GUERRA PREVENTIV 3 3 [facility] HEALTH PATIENT SHARONDA MCDONOUGH 12-17YRS OFFICE 32514 MARI GUERRA OUTPATIEN 3 3 [facility] T VISIT [facility] 10 HIGH LJ HIGH LJ MINUTES OFFICE 69624 LASHANDA LASHANDA OUTPATIEN 3 3 [facility] MU T VISIT 15 MINUTES OFFICE 03806 MARI GUERRA OUTPATIEN 3 3 [facility] T VISIT [facility] 10 SHARONDA MCDONOUGH MINUTES OFFICE 41397 LASHANDA LASHANDA OUTPATIEN 3 3 MU MU T VISIT 15 MINUTES OFFICE 57179 LASHANDA LASHANDA OUTPATIEN 3 3 MU MU T VISIT 15 MINUTES OFFICE 01670 MARI GUERRA OUTPATIEN 2 2 [facility] T VISIT [facility] 10 SHARONDA MCDONOUGH MINUTES OFFICE 25578 JEANNINE PAEZ OUTPATIEN 2 2 [facility] T VISIT 15 MINUTES [facility] [place] [facility] 2 [facility] T OFFICE 43776 ADAN AAR ADAN AAR OUTPATIEN 2 2 T VISIT 10 MINUTES OFFICE 89481 MARI GUERRA OUTPATIEN 2 2 [facility] T VISIT [facility] 15 HIGH LJ HIGH LJ MINUTES OFFICE 87091 LASHANDA LASHANDA OUTPATIEN 2 2 MU MU T VISIT 15 MINUTES [facility] [place] - 2 2 [facility] T OFFICE 51168 DUDYCZ-ACEVEDO DUDYCZ-ACEVEDO OUTPATIEN 2 2 [facility] JONOZ [facility]LIN T VISIT 15 MINUTES OFFICE 07490 MARI GUERRA OUTPATIEN 2 2 [facility] T VISIT [facility] HEALTH 10 SHARONDA MCDONOUGH MINUTES OFFICE 64680 LASHANDA LASHANDA OUTPATIEN 2 2 [facility] T VISIT 15 MINUTES [facility] [place] - [facility] 2 [facility] T OFFICE 39405 FITZ BYRNES OUTPATIEN 2 2 [facility] T NEW 30 MINUTES OFFICE 82991 DUDYCZ-ACEVEDO DUDYCZ-ACEVEDO OUTPATIEN 2 2 [facility] T VISIT 15 MINUTES OFFICE 47303 LASHANDA LASHANDA OUTPATIEN 2 2 [facility] T VISIT 15 MINUTES [facility] [place] - 2 2 [facility] T PERIODIC 18104 JEANNINE JEANNINE PREVENTIV 2 2 SEE SEE E MED EST PATIENT [facility] [place] - [facility] 2 [facility] T OFFICE 36546 MARI GUERRA OUTPATIEN 2 2 [facility] T VISIT 5 HEALTH HEALTH MINUTES SHARONDA MCDONOUGH PERIODIC 50448 MARI GUERRA PREVENTIV 2 2 [facility] E MED EST HEALTH HEALTH PATIENT SHARONDA MCDONOUGH S OFFICE 18900 LASHANDA LASHANDA OUTPATIEN 2 2 [facility] T VISIT 15 MINUTES OFFICE 15254 MARI GUERRA OUTPATIEN 2 2 [facility] T VISIT HEALTH HEALTH 10 SHARONDA MCDONOUGH MINUTES OFFICE 66720 DUDYCZ-ACEVEDO DUDYCZ-ACEVEDO OUTPATIEN 2 2 [facility] T VISIT 15 MINUTES OFFICE 36008 MARI MARI OUTPATIEN 2 2 [facility] T VISIT HEALTH HEALTH 10 SHARONDA MCDONOUGH MINUTES OFFICE 68470 MARI MARI OUTPATIEN 1 1 [facility] T VISIT HEALTH HEALTH 10 SHARONDA MCDONOUGH MINUTES OFFICE 97624 PHYSICIAN MILDRED-ACEVEDO OUTPATIEN 1 1 S FOR LICZ [facility] T VISIT CHILDREN 15 MINUTES OFFICE 32015 PHYSICIAN LASHANDA OUTPATIEN 1 1 S FOR MUH T VISIT CHILDREN 15 MINUTES PERIODIC 91254 MARI GUERRA PREVENTIV 1 1 [facility] E [facility] HEALTH PATIENT SHARONDA MCDONOUGH 12-17YRS PERIODIC 37633 PHYSICIAN LINDA PREVENTIV 1 1 S FOR L[facility]Z [facility] E MED EST CHILDREN PATIENT 12-17YRS OFFICE [address] OUTPATIEN 1 1 MEDICAL T VISIT CENTER 15 [facility] [place] - 1 1 [facility]PAT[facility]EN CENTER [facility] [place] [facility] 1 1 [facility] OFFICE [address] OUTPATIEN 1 1 MEDICAL T NEW 45 CENTER [facility] [place] - 1 1 [facility] OFFICE 55148 PHYSICIAN DUDYCZ-ACEVEDO OUTPATIEN 1 1 S FOR LICZ [facility] T VISIT CHILDREN 15 MINUTES OFFICE 71821 PHYSICIAN DUCARLIN-ACEVEDO OUTPATIEN 1 1 S FOR LICZ [facility] T VISIT CHILDREN 15 MINUTES OFFICE 49218 PHYSICIAN LASHANDA OUTPATIEN 1 1 S FOR MUH T VISIT CHILDREN 15 MINUTES OFFICE 93871 PHYSICIAN LASHANDA OUTPATIEN 1 1 S FOR MUH T VISIT CHILDREN 15 MINUTES OFFICE 18551 PHYSICIAN LASHANDA OUTPATIEN 0 0 S FOR MUH T VISIT CHILDREN 15 MINUTES [facility] [place] - 0 0 [facility]EN [facility] [place] - 0 0 [facility]EN CENTER [facility] [place] - 0 0 [facility] T EMERGENCY 17335 [place] 0 0 [facility] CENTER T VISIT MODERATE SEVERITY PERIODIC 62668 PHYSICIAN LINDA PREVENTIV 0 0 S FOR LICZ, E MED EST CHILDREN NATALY PATIENT I 12-17YRS OFFICE 81243 PHYSICIAN NADINE PAEZPATIGREGORY 0 0 S FOR THU T VISIT CHILDREN 15 MINUTES [facility] [place] [facility] 28060 [facility] 0 0 EMERGENCY , [facility] SERVICES L T VISIT MODERATE ASSOCIATE SEVERITY S [facility] [place] - 0 0 [facility] T [facility] [place] [facility] OFF[facility] 77281 PHYSICIAN JEANNINE OUTPATIEN 0 0 S FOR THU T VISIT CHILDREN 15 MINUTES OFFICE 31720 PHYSICIAN JEANNINE OUTPATIEN 9 9 S FOR THU T VISIT CHILDREN 15 MINUTES OFFICE 01767 PHYSICIAN LASHANDA OUTPATIEN 9 9 S FOR LYNNE T VISIT CHILDREN 15 MINUTES OFFICE 19794 PHYSICIAN JEANNINE OUTPATIEN 9 9 S FOR THU T VISIT CHILDREN 15 MINUTES OFFICE 63466 PHYSICIAN JEANNINE OUTPATIEN 9 9 S FOR DANIEL S T VISIT CHILDREN 15 MINUTES OFFICE 05462 PHYSICIAN JEANNINE OUTPATIEN 9 9 S FOR DANIEL S T VISIT CHILDREN 10 MINUTES OFFICE 42953 PHYSICIAN JEANNINE OUTPATIEN 9 9 S FOR THU T VISIT CHILDREN 15 MINUTES PERIODIC 17109 PHYSICIAN JEANNINE PREVENTIV 9 9 S FOR THU E MED EST CHILDREN PATIENT 12-17YRS OFFICE 85738 PHYSICIAN LASHANDA, OUTPATIEN 9 9 S FOR LYNNE T VISIT CHILDREN 15 MINUTES OFFICE 33773 PHYSICIAN LASHANDA OUTPATIEN 9 9 S FOR LYNNE T VISIT CHILDREN 15 MINUTES OFFICE 11540 [facility] OUT[facility] 9 9 [facility] [employer] [facility] ACCT OFFICE 56686 PHYSICIAN DAYA PAEZ 9 9 S FOR DANIEL S T VISIT CHILDREN 15 MINUTES OFFICE 54734 PHYSICIAN NADINE PAEZPATIGREGORY 8 8 S FOR THU T VISIT CHILDREN 15 MINUTES EMERGENCY 80039 [place] 8 8 [facility] T VISIT MODERATE SEVERITY [facility] [place] [facility] 8 [facility] T [facility] [place] [facility] 87642 PHYSICIAN LASHANDA OUTPATIEN 8 8 S FOR LYNNE T VISIT CHILDREN 15 MINUTES OFFICE 99232 PHYSICIAN DAYA PAEZ 8 8 S FOR DANIEL S T VISIT CHILDREN 15 MINUTES [facility] [place] [facility] 56792 PHYSICIAN NADINE PAEZPATIGREGORY 8 8 S FOR DANIEL S T VISIT CHILDREN 15 MINUTES OFFICE 43049 PHYSICIAN LASHANDA OUTPATIEN 8 8 S FOR LYNNE T VISIT CHILDREN 15 MINUTES [facility] [place] 8 8 [facility] OFF[facility] 25470 PHYSICIAN LASHANDA OUTPATIEN 8 8 S FOR LNYNE T VISIT CHILDREN 15 MINUTES
--- OUTSIDE RECORDS SUMMARY | 2017-01-28 12:50 | External Medical Summary Rpt ---
Author Author [employer], [employer] Organization [employer] Address Unknown Phone Unavailable Results HCG QUANTITATIVE Observa Value Referen Units Interpr Notes Date tion ce etation Range Choriog 7897 No mIU/ML No FEMALE Jun 01 onadotr informa informa (NON 2016 opin tion in tion in PREGNAN 10:52 [Moles/ source source T) AM volume] data data in <31 Urine DAY - 1 WEEK 5 - 501 - 2 WEEK 50 - 5002 - 3 WEEK 100 - 91311 - 4 WEEK 500 - 688471 - 5 WEEK 1000 - 990069 - 6 WEEK 29103 - 2524449 - 8 WEEK 56466 - 7425420 - 3 MTHS 42619 - 045998 TESTOSTERONE,SERUM Observa Value Referen Units Interpr Notes Date tion ce etation Range Testost 23 No ng/dl No 1- 5 Feb 3 erone informa informa MTHS 2016 [Mass/v tion in tion in MALE 1 1:48 PM olume] source source -177 in data data FEMALE Serum 1 - or 56-11 Plasma MTHS 2 - 7 2 - 51- 5 YRS 0 - 10 0 - 106- 7 YRS 0 - 20 0 - 108-10 YRS 0 - 25 0 - 3011-12 YRS 0 -350 0 - 5013-15 YRS 15 -500 0 - 50ADULT 241 -827 14 - 76 TSH Observa Value Referen Units Interpr Notes Date tion ce etation Range Thyrotr 3.060 0.463 - uIU/ML No No Feb 3 opin 3.980 informa informa 2016 [Units/ tion in tion in 1:48 PM volume] source source in data data Serum or Plasma by Detecti on limit <= 0.005 mU/L PROLACTIN Observa Value Referen Units Interpr Notes Date tion ce etation Range Prolact 10.2 4.8 - ng/ml No No Feb 3 in 23.3 informa informa 2016 [Mass/v tion in tion in 1:48 PM olume] source source in data data Serum or Plasma LH Observa Value Referen Units Interpr Notes Date tion ce etation Range Lutropi 10.8 No mIU/ml No CHILDRE Sep 28 n informa informa N 2015 [Units/ tion in tion in (Males 1:48 PM volume] source source and in data data Females Serum )<24 or hours Plasma <0.2 - 1.01 day <0.2 - 0.82 days <0.2 - 0.63 days <0.2 - 2.74 days <0.2 - 1.75 days <0.2 - 3.16 days 0.4 - 6.47 days <0.2 - 5.68 - 30 days <0.2 - 7.8Age Male Childre n Female Childre n1 -12 mths <0.2 - 0.4 <0.2 - 0.41-4y rs 12 mths <0.2 - 1.3 <0.2 - 0.55-9y rs 12 mths <0.2 - 1.4 <0.2 - 3.110-1 2yrs 12 mths <0.2 - 7.8 <0.2 - 11.913- 16yrs 12 mths 1.3 - 9.8 0.5 - 41.7Adu lt Male: 1.7 - 8.6Adul t Female: Follicu lar phase 2.4 - 12.6Ovu lation phase 14.0 - 95.6Lut eal phase 1.0 - 11.4Pos tmenopa usal 7.7 - 58.5 FSH Observa Value Referen Units Interpr Notes Date tion ce etation Range Follitr 3.6 No mIU/ml No Childre Sep 28 opin informa informa n 2015 [Units/ tion in tion in (Males 1:48 PM volume] source source and in data data Females Serum )<24 or Hours Plasma <0.2 - 0.81 day <0.2 - 0.82 days <0.2 - 0.83 days <0.2 - 2.44 days <0.2 - 2.35 days <0.2 - 3.46 days <0.2 - 4.57 days <0.2 - 21.48 - 30 days <0.2 - 22.2Age Male Child Female Child1- 12 mths not establi shed not establi shed1-4 yrs 12 mths 0.2-2.8 0.2-11. 15-9 yrs 12 mths 0.4-3.8 0.3-11. 110-12 yrs 12 mths 0.4-4.6 1.6-17. 013-16 yrs 12 mths 1.5-12. 9 1.6-17. 0Adult Male: 1.5-12. 4Adult Female: Follicu lar Phase 3.5-12. 5Ovulat ion Phase 4.7-21. 5Luteal Phase 1.7-7.7 Postmen opausal 25.8-13 4.8 INSULIN Observa Value Referen Units Interpr Notes Date tion ce etation Range Insulin 36.7 0.0 - uIU/ml High No Sep 28 24.9 informa 2016 [Units/ tion in 1:48 PM volume] source in data Serum or Plasma CHLAMYDIA AND GONORRHEA TESTING Observa Value Referen Units Interpr Notes Date tion ce etation Range COLLECT JR No No No No January 05 OR informa informa informa informa 2014 tion in tion in tion in tion in 2:07 AM source source source source data data data data ETHNICI WHITE, No No No No January 05 TY NON-HIS informa informa informa informa 2015 PANIC tion in tion in tion in tion in 2:07 AM source source source source data data data data KIT 12-31-2 No No No No January 05 EXPIRAT 015 informa informa informa informa 2015 ION tion in tion in tion in tion in 2:07 AM DATE source source source source data data data data SYMPTOM NO No No No No January 05 S informa informa informa informa 2015 tion in tion in tion in tion in 2:07 AM source source source source data data data data REASON REVISIT No No No No January 05 FOR /ANNUAL informa informa informa informa 2015 REQUEST FAMILY tion in tion in tion in tion in 2:07 AM source source source source PLANNIN data data data data G VISIT SPECIME URINE No No No No January 05 N informa informa informa informa 2015 SOURCE tion in tion in tion in tion in 2:07 AM source source source source data data data data PREGNAN NO No No No No January 05 T informa informa informa informa 2015 tion in tion in tion in tion in 2:07 AM source source source source data data data data CHART NA No No No No January 05 NUMBER informa informa informa informa 2015 tion in tion in tion in tion in 2:07 AM source source source source data data data data Chlamyd NEGATIV No No No NEGATIV January 05 ia E informa informa informa E 2015 trachom tion in tion in tion in RESULT= 2:07 AM atis source source source WITHIN rRNA data data data NORMAL [Presen ce] in LIMITSP Unspeci OSITIVE fied specime RESULT= n by Probe & ABNORMA target LEQUIVO KAMRAN amplifi RESULT= cation method INDETER MINATEU NSATISF ACTORY RESULT= INVALID Neisser NEGATIV No No No NEGATIV January 05 ia E informa informa informa E 2015 gonorrh tion in tion in tion in RESULT= 2:07 AM oeae source source source WITHIN rRNA data data data NORMAL [Presen ce] in LIMITSP Unspeci OSITIVE fied specime RESULT= n by Probe & ABNORMA target LEQUIVO KAMRAN amplifi RESULT= cation method INDETER MINATEU NSATISF ACTORY RESULT= INVALID THE APTIMA COMBO 2 ASSAY IS NOT INTENDE D FOR THE EVALUAT ION OF SUSPECT EDSEXUA L ABUSE OR FOR OTHER MEDICO- LEGAL INDICAT IONS. FOR THOSE PATIENT S FORWHOM A FALSE POSITIV E RESULT MAY HAVE ADVERSE PSYCHO- SOCIAL IMPACT, THE CDCRECO MMENDS RETESTI NG.\.br \This report contain s patient informa tion that must be protect ed in accorda nce with the Health Insuran ce Portabi lity and Account ability Act. CHLAMYDIA AND GONORRHEA TESTING Observa Value Referen Units Interpr Notes Date tion ce etation Range COLLECT JR No No No No January 05 OR informa informa informa informa 2014 tion in tion in tion in tion in 2:07 AM source source source source data data data data ETHNICI WHITE, No No No No January 05 TY NON-HIS informa informa informa informa 2015 PANIC tion in tion in tion in tion in 2:07 AM source source source source data data data data KIT 12-31-2 No No No No January 05 EXPIRAT 015 informa informa informa informa 2015 ION tion in tion in tion in tion in 2:07 AM DATE source source source source data data data data SYMPTOM NO No No No No January 05 S informa informa informa informa 2015 tion in tion in tion in tion in 2:07 AM source source source source data data data data REASON REVISIT No No No No January 05 FOR /ANNUAL informa informa informa informa 2015 REQUEST FAMILY tion in tion in tion in tion in 2:07 AM source source source source PLANNIN data data data data G VISIT SPECIME URINE No No No No January 05 N informa informa informa informa 2015 SOURCE tion in tion in tion in tion in 2:07 AM source source source source data data data data PREGNAN NO No No No No January 05 T informa informa informa informa 2015 tion in tion in tion in tion in 2:07 AM source source source source data data data data CHART NA No No No No January 05 NUMBER informa informa informa informa 2015 tion in tion in tion in tion in 2:07 AM source source source source data data data data Chlamyd Pending No No No No January 05 ia informa informa informa informa 2015 trachom tion in tion in tion in tion in 2:07 AM atis source source source source rRNA data data data data [Presen ce] in Unspeci fied specime n by Probe & target amplifi cation method Neisser Pending No No No \.br\January 05 ia informa informa informa is 2015 gonorrh tion in tion in tion in report 2:07 AM oeae source source source contain rRNA data data data s [Presen patient ce] in Unspeci informa fied tion specime that n by must be Probe & target protect ed in amplifi accorda cation nce method with the Health Insuran ce Portabi lity and Account ability Act. US Breast Bilateral Observa Value Referen Units Interpr Notes Date tion ce etation Range \.br\BI No No No No Aug 20 LATERAL informa informa informa informa 2013 BREAST tion in tion in tion in tion in 12:20 source source source source PM ULTRASO data data data data UND, 013\.br \\.br\T he patient describ es palpabl e abnorma lity within the superio r aspects of both breasts . Sonogra phic assessm ent was perform ed in the superio r aspect of both breasts which demonst rates no focal mass lesion or fluid collect ion. Several regions of dense fibrogl andular tissue was imaged which may corresp ond to the patient 's palpabl e concern .\.br\\ .br\The patient also describ es palpabl e abnorma lity in the left axilla. There was erythem a noted clinica lly. Sonogra phic assessm ent at this site demonst rates a superfi cial hypoech oic lesion contain ed within the dermal layer. There is associa yazmin skin thicken ing. This is estimat ed at 1.2 x 1.0 x 1.3 cm. This could represe nt a sebaceo us cyst. There was increas ed vascula rity noted of this region. No other focal mass lesion or fluid collect ion was seen.\. br\\.br \ IMPRESS ION:\.b r\\.br\ 1. No focal sonogra phic abnorma lity is seen within the superio r aspect of the breast to corresp ond to the patient 's palpabl e concern .\.br\\ .br\2. There is a superfi cial hypoech oic lesion contain ed within the dermal layer of the left axilla corresp onding to patient 's palpabl e region of concern . This could represe nt a sebaceo us cyst. Given the erythem a clinica lly and the sonogra phic hyperva sculari ty, a superim posed infecti on may be conside red. Clinica l correla tion of managem ent advised .\.br\\ .br\BI- RADS: 2. Benign. \.br\\. br\ END OF REPORT* *\.br\\ .br\Darvin Vera II, M.D.\.b r\\.br\ Dictate d: 12:25 PM\.br\ \.br\Tr anscrib ed: 12:26 PM\.br\ \.br\In the absence of a focal finding at ultraso und, any palpabl e abnorma lities should be presume d to be solid and decisio n for biopsy should be based on the clinica l evaluat ion.\.b r\\.br\ Final Report \.br \\.br\D ictated : Brown Vera M.D. 12:25 pm\.br\ \.br\Tr anscrib ed by: SAGRARIO 12:32 pm\.br\ \.br\Au thentic ated by: Brown Vera M.D. 12:51 pm\.br\ \.br\
--- OUTSIDE RECORDS SUMMARY | 2017-01-28 12:50 | External Medical Summary Rpt ---
Author Author , Organization [employer] Address Unknown Phone Unavailable Purpose Continuity of Care Document - 1996 through 2016 Immunization Name Date Route CVX Reacti Commen Provid Is Given on t er Refuse d DTaP, Histor H198A No UF 2001 ical Inform ation - Source Unspec ified Polio- Histor H198A No IPV 2000 ical Inform ation - Source Unspec ified MMR Histor H198A No 2000 ical Inform ation - Source Unspec ified DTP-Hi Histor H198A No b 1997 ical Inform ation - Source Unspec ified MMR Histor H198A No 1997 ical Inform ation - Source Unspec ified Hep B, Histor H198A No 1996 ical ped/ad Inform ol ation - Source Unspec ified Varice Histor H198A No lla 1996 ical Inform ation - Source Unspec ified DTP-Hi Histor H198A No b 1996 ical Inform ation - Source Unspec ified Polio- 01-14- Histor H198A No OPV 1996 ical Inform ation - Source Unspec ified DTP-Hi Histor H198A No b 1996 ical Inform ation - Source Unspec ified Polio- 10-28- Histor H198A No OPV 1996 ical Inform ation - Source Unspec ified DTP-Hi Histor H198A No b 1996 ical Inform ation - Source Unspec ified Polio- Histor H198A No OPV 1996 ical Inform ation - Source Unspec ified Hep B, Histor H198A No 1995 ical ped/ad Inform ol ation - Source Unspec ified
--- OUTSIDE RECORDS SUMMARY | 2017-01-28 12:50 | External Medical Summary Rpt ---
[...] - 5002 - 3 WEEK 100 - 22033 - 4 WEEK 500 - 748521 - 5 WEEK 1000 - 798638 - 6 WEEK 52795 - [id number] - 8 WEEK 97970 - 2569825 - 3 MTHS 57150 - 496689 TESTOSTERONE,SERUM Observa Value Referen Units Interpr Notes [...] 12:32 pm\.br\ \.br\Au thentic ated by: Brown Vrea M.D. 12:51 pm\.br\ \.br\
[2017-01-28 12:53] LABS: URINE BILIRUBIN - DIPSTICK NEGATIVE (NEG); URINE BLOOD TRACE-LYSED (NEG)
[2017-01-28] MEDS ORDERED: MOTRIN 600MG.600 MG PO (13:29)
[2017-01-28 13:46] VITALS: BP 132/83
--- NOTE | 2017-01-28 15:54 | RADIOLOGY REPORT PS360 ---
US PELVIS-TRANSVAGINAL ONLY HISTORY: pain with intercourse and vaginal bleeding ORDERING PHYSICIAN: Keyon Rojo MD PATIENT AGE: 21 years COMPARISON: None FINDINGS: Uterus is retroverted and measures 7 x 4 x 4.4 cm with a combined endometrial thickness of millimeters. The right ovary measures 4 x 2.5cm. Multiple peripherally placed follicles are noted. The left ovary measures 2.9 x 2.2 cm and contains multiple peripheral follicles. Cul-de-sac fluid is present. IMPRESSION: Ovaries have a polycystic appearance. The uterus is retroverted. Otherwise negative pelvic ultrasound
[2017-02-04] MEDS ORDERED: BACTRIM DS 8001 TA1 PO (02:37)
== END 2017-01-28 13:46 | disposition home or self-care (01) ==
LOC: ER 12:16
PROVIDERS: Emergency Medicine
DX: R10.2 Pelvic and perineal pain (principal); Z72.0 Tobacco use

== ENCOUNTER 2017-05-06 23:43 | Emergency (ER) | payer MEDICAID ==
[~2017-05-06] VITALS: Ht 162.6 cm; Wt 90.7 kg
[~2017-05-06 23:43] MED LIST: BACTRIM DS 8001 TA1 PO; MOTRIN 600MG.600 MG PO
--- NOTE | 2017-05-07 00:06 | Emergency Room Report ---
History of Present Illness Time Seen by [id number] Presenting Problem in Triage Pt arrived:Walked Presenting Problem:C/O PELVIC AND LOW BACK PAIN. HAD POSITIVE TEST 2 DAYS AGO. 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 N Clinical Suspician of Infection? N Mental Status: 1 - Regular (Normal Baseline) Sepsis Risk:Low Sepsis Risk Have you (or family members/close friends) recently traveled outside the [place]? N If Yes, where/when: Have you had exposure to infectious disease within the past month? N TB? Other? Specify: Source patient, RN notes reviewed, old records Exam Limitations no limitations Comment pt with pos preg test with no fever/ vag bleeding and has lt sided pain and presents for follow up Cardiac Chest Pain Chest pain indicative of cardiac No Timing/Duration this evening Severity moderate ALLERGIES Coded Allergies: No Known Allergies (02/04/17) Home Medications Reported Medications MISCELLANEOUS (UNKNOWN MEDICATION) 1 JAMES PO DAILY History Medical History General CAD? No Angina: No NM: No Hypertension? No Hyperlipidemia? No CHF? No DVT? No PE? No COPD? No Asthma? No Anemia? No GERD? No Gastric ulcers? No GI Bleed? No Hernia? No Thyroid Problems? No Hypothyroidism? No CVA? No Seizures? No Diabetes? No Renal Insuffiency? No End Stage Renal Disease? No UTI? No Stones? No BPH? No GB Disease: No Nephritic Syndrome? No Asplenia? No Hepatitis? No Sickle Cell Disease? No Arthritis? No Migraines? No Cataracts? No Glaucoma? No MRSA? No HIV? No TB? No Anxiety? No Depression? No Cancer? No More? 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 Respiratory denies cough, denies shortness of breath, denies wheezing Cardiovascular denies chest pain, denies palpitations, denies syncope Gastrointestinal see HPI, denies abdominal pain, nausea, denies vomiting Genitourinary see HPI. denies: discharge, abnormal vaginal bleeding, dysuria, frequency, hesitancy, hematuria. Musculoskeletal denies back pain, denies joint pain, denies joint swelling, denies neck pain Skin denies rash Psychiatric/Neurological denies headache, denies seizure Physical Exam Vital Signs Vital Signs Date Time Temp Pulse Resp B/P Pulse O2 O2 Flow FiO2 Ox Delivery Rate 05/06 2351 98.5 80 20 107/59 99 - WBC >12,000 or <4,000 or 10% bands? 2 or more SIRS Criteria Met? B/P:107/59 MAP:75 Creatinine >2.0? UA output<0.5ml/kg/hr for 2 hrs? Platelet count >100,000? Lactate >2.0mmol/1? INR >1.2 or PTT > than 60 sec? Evidence of Organ Dysfunction? Provider documented clinical suspician of infection? N Sepsis Criteria Count: 1 Sepsis Risk: Low Sepsis Risk General Appearance no apparent distress Eye Exam - bilateral eye PERRL, bilateral eye EOMI Ear, Nose, Throat normal ENT inspection Neck non-tender Respiratory Status No: respiratory distress. 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 No Results/Orders Laboratory Tests 05/07/17 0024: Sodium 137, Potassium 3.5, Chloride 104, Carbon Dioxide 25, BUN 11, Creatinine 0.6, Estimated Creat Clear 214 H, Estimated GFR (MDRD) 127, Glucose 96, Calcium 8.9, Total Bilirubin 0.2, AST 24, ALT 57, Alkaline Phosphatase 57, Total Protein 6.3 L, Albumin 3.3 L, Globulin 3.0, Albumin/Globulin Ratio 1.1, Beta HCG, Quant 17669.9, WBC 7.7, RBC 4.20, Hgb 11.7 L, Hct 34.9 L, MCV 83.2, RDW 14.1, Plt Count 170, MPV 8.7, Gran % 67.6, Gran # 5.2, Lymphocytes % 26.5, Monocytes % 5.0, Eosinophils % 0.7, Basophils % 0.2, Lymphocytes # 2.0, Monocytes # 0.4, Eosinophils # 0.1, Basophils # 0.0, PUBS MCHC 33.6, MCH 27.9 05/07/17 0010: Urine Color YELLOW, Urine Appearance CLEAR, Urine pH 5.5, Ur Specific [place] >= 1.030, Urine Protein NEGATIVE, Urine Ketones NEGATIVE, Urine Blood NEGATIVE, Urine Nitrate NEGATIVE, Urine Bilirubin NEGATIVE, Urine Urobilinogen 0.2, Ur Leukocyte Esterase NEGATIVE, Urine WBC OCC, Ur Squamous Epith Cells OCC, Urine Bacteria TRACE, Urine Glucose NEGATIVE Orders Procedure Date/time Status COMPLETE METABOLIC PANEL 05/07 19 Complete CBC WITH AUTO DIFF 05/07 19 Complete BETA-HCG, QUANT 05/07 19 Complete URINALYSIS/COMPLETE 05/06 234 Complete URINE 05/06 2348 Complete Departure Departure Time of Disposition 0115 Disposition DC Home or Self Care(routine) Clinical Impression Primary Impression: Qualifiers: Weeks of gestation: less than 8 weeks Qualified Code: Z3A.01 - Less than 8 weeks gestation of Condition STABLE Referrals Fili HOFFMAN,John Marx MD,Richy Lema Patient Instructions DI for Abdominal Pain -- Early Additional Instructions call pcp/ob in am and recheck if needed Discharge Counseling Counseled pt/family regarding diagnosis, test results, follow up needs ED Critical Care Critical Care No at [phone]
--- NOTE | 2017-05-07 00:06 | Emergency Room Report ---
History of Present Illness Time Seen by [id number] Presenting Problem in Triage Pt arrived:Walked Presenting Problem:C/O PELVIC AND LOW BACK PAIN. HAD POSITIVE TEST 2 DAYS AGO. 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 N Clinical Suspician of Infection? N Mental Status: 1 - Regular (Normal Baseline) Sepsis Risk:Low Sepsis Risk Have you (or family members/close friends) recently traveled outside the [place]? N If Yes, where/when: Have you had exposure to infectious disease within the past month? N TB? Other? Specify: Source patient, RN notes reviewed, old records Exam Limitations no limitations Comment pt with pos preg test with no fever/ vag bleeding and has lt sided pain and presents for follow up Cardiac Chest Pain Chest pain indicative of cardiac No Timing/Duration this evening Severity moderate ALLERGIES Coded Allergies: No Known Allergies (02/04/17) Home Medications Reported Medications MISCELLANEOUS (UNKNOWN MEDICATION) 1 JAMES PO DAILY History Medical History General CAD? No Angina: No [place]: No Hypertension? No Hyperlipidemia? No CHF? No DVT? No PE? No COPD? No Asthma? No Anemia? No GERD? No Gastric ulcers? No GI Bleed? No Hernia? No Thyroid Problems? No Hypothyroidism? No CVA? No Seizures? No Diabetes? No Renal Insuffiency? No End Stage Renal Disease? No UTI? No Stones? No BPH? No GB Disease: No Nephritic Syndrome? No Asplenia? No Hepatitis? No Sickle Cell Disease? No Arthritis? No Migraines? No Cataracts? No Glaucoma? No MRSA? No HIV? No TB? No Anxiety? No Depression? No Cancer? No More? 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 Respiratory denies cough, denies shortness of breath, denies wheezing Cardiovascular denies chest pain, denies palpitations, denies syncope Gastrointestinal see HPI, denies abdominal pain, nausea, denies vomiting Genitourinary see HPI. denies: discharge, abnormal vaginal bleeding, dysuria, frequency, hesitancy, hematuria. Musculoskeletal denies back pain, denies joint pain, denies joint swelling, denies neck pain Skin denies rash Psychiatric/Neurological denies headache, denies seizure Physical Exam Vital Signs Vital Signs Date Time Temp Pulse Resp B/P Pulse O2 O2 Flow FiO2 Ox Delivery Rate 05/06 2351 98.5 80 20 107/59 99 - WBC >12,000 or <4,000 or 10% bands? 2 or more SIRS Criteria Met? B/P:107/59 MAP:75 Creatinine >2.0? UA output<0.5ml/kg/hr for 2 hrs? Platelet count >100,000? Lactate >2.0mmol/1? INR >1.2 or PTT > than 60 sec? Evidence of Organ Dysfunction? Provider documented clinical suspician of infection? N Sepsis Criteria Count: 1 Sepsis Risk: Low Sepsis Risk General Appearance no apparent distress Eye Exam - bilateral eye PERRL, bilateral eye EOMI Ear, Nose, Throat normal ENT inspection Neck non-tender Respiratory Status No: respiratory distress. 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 No Results/Orders Laboratory Tests 05/07/17 0024: Sodium 137, Potassium 3.5, Chloride 104, Carbon Dioxide 25, BUN 11, Creatinine 0.6, Estimated Creat Clear 214 H, Estimated GFR (MDRD) 127, Glucose 96, Calcium 8.9, Total Bilirubin 0.2, AST 24, ALT 57, Alkaline Phosphatase 57, Total Protein 6.3 L, Albumin 3.3 L, Globulin 3.0, Albumin/Globulin Ratio 1.1, Beta HCG, Quant 77541.9, WBC 7.7, RBC 4.20, Hgb 11.7 L, Hct 34.9 L, MCV 83.2, RDW 14.1, Plt Count 170, MPV 8.7, Gran % 67.6, Gran # 5.2, Lymphocytes % 26.5, Monocytes % 5.0, Eosinophils % 0.7, Basophils % 0.2, Lymphocytes # 2.0, Monocytes # 0.4, Eosinophils # 0.1, Basophils # 0.0, PUBS MCHC 33.6, MCH 27.9 05/07/17 0010: Urine Color YELLOW, Urine Appearance CLEAR, Urine pH 5.5, Ur Specific [place] >= 1.030, Urine Protein NEGATIVE, Urine Ketones NEGATIVE, Urine Blood NEGATIVE, Urine Nitrate NEGATIVE, Urine Bilirubin NEGATIVE, Urine Urobilinogen 0.2, Ur Leukocyte Esterase NEGATIVE, Urine WBC OCC, Ur Squamous Epith Cells OCC, Urine Bacteria TRACE, Urine Glucose NEGATIVE Orders Procedure Date/time Status COMPLETE METABOLIC PANEL 05/07 19 Complete CBC WITH AUTO DIFF 05/07 19 Complete BETA-HCG, QUANT 05/07 19 Complete URINALYSIS/COMPLETE 05/06 234 Complete URINE 05/06 2348 Complete Departure Departure Time of Disposition 0115 Disposition DC Home or Self Care(routine) Clinical Impression Primary Impression: Qualifiers: Weeks of gestation: less than 8 weeks Qualified Code: Z3A.01 - Less than 8 weeks gestation of Condition STABLE Referrals Fili HOFFMAN,John Marx MD,Richy Lema Patient Instructions DI for Abdominal Pain -- Early Additional Instructions call pcp/ob in am and recheck if needed Discharge Counseling Counseled pt/family regarding diagnosis, test results, follow up needs ED Critical Care Critical Care No at 0119
[2017-05-07 00:11] LABS: URINE BILIRUBIN - DIPSTICK NEGATIVE (NEG); URINE BLOOD NEGATIVE (NEG)
[2017-05-07 00:17] LABS: URINE SQUAMOUS CELLS OCC #/hpf (0-5)
[2017-05-07 00:41] LABS: HEMOGLOBIN 11.7 g/dL (12.2-16.2); LYMPH % 26.5 % (10-50.0)
[2017-05-07 01:27] VITALS: BP 110/58
== END 2017-05-07 01:27 | disposition home or self-care (01) ==
LOC: ER 23:43
PROVIDERS: Emergency Medicine
DX: O26.91 Pregnancy related conditions, unspecified, first trimester (principal); Z3A.01 Less than 8 weeks gestation of pregnancy

== ENCOUNTER 2017-05-21 18:47 | Emergency (ER) | payer MEDICAID ==
[~2017-05-21] VITALS: Ht 165.1 cm; Wt 94.3 kg
[2017-05-21] MEDS ORDERED: PROGESTERONE100 M1 PO (18:56)
[2017-05-21] MEDS ORDERED: PRENATAL VITAMI1 TA4 PO (18:57)
--- NOTE | 2017-05-21 19:15 | Emergency Room Report ---
History of Present Illness Time Seen by [id number] Presenting Problem in Triage Pt arrived:Walked Presenting Problem:PT REPORTS IS 13 WEEKS GESTATION, STATES SHE WAS PACKING SOME THINGS TO HER CAR, BEGAN HAVING LOWER PELVIC CRAMPING, STATES CRAMPING LASTED APPROX 10 MINUTES AND STOPPED AFTER SHE SAT DOWN. PT DENIES ANY VAGINAL BLEEDING OR DISCHARGE. PT STATES NO PAIN AT THIS TIME. Onset of symptoms date/time:05/21/17 or onset unknown for: Treatment Prior to Arrival: [facility] Provided by: Sepsis Risk Assessment: Temp: 98.1 B/P: 128/85 MAP: 99 Pulse: 92 Resp: 20 Recent fever? N Clinical Suspician of Infection? N Mental Status: 1 - Regular (Normal Baseline) Sepsis Risk:Possible Sepsis Risk Have you (or family members/close friends) recently traveled outside the [place]? N If Yes, where/when: Have you had exposure to infectious disease within the past month? N TB? Other? Specify: Comment The patient is and complains of an episode of pelvic cramping. She says that she had been doing some lifting when she developed some intense suprapubic cramping, she sat down and went away. Total duration was about 10-15 minutes. No bleeding or discharge or fluid leakage. Symptoms are now completely gone. She is 2 AB 1. She had a miscarriage last year and says that she had a lot of cramping with that and no bleeding and therefore this concerned her. She was at about 8 weeks when that happened. She has seen her physical therapy technician for this and had an ultrasound done one week ago, at that time she was 12 weeks gestation and treated her in . No urinary symptoms, bowel symptoms, or fever. ALLERGIES Coded Allergies: No Known Allergies (02/04/17) Home Medications Reported Medications Progesterone, Micronized (Progesterone) 100 MG PO DAILY #30 PNV WITH CA,NO.72/IRON/FA ( Plus Tablet) 1 TAB PO DAILY #30 History Medical History General CAD? No Angina: No [place]: No Hypertension? No Hyperlipidemia? No CHF? No DVT? No PE? No COPD? No Asthma? No Anemia? No GERD? No Gastric ulcers? No GI Bleed? No Hernia? No Thyroid Problems? No Hypothyroidism? No CVA? No Seizures? No Diabetes? No Renal Insuffiency? No End Stage Renal Disease? No UTI? No Stones? No BPH? No GB Disease: No Nephritic Syndrome? No Asplenia? No Hepatitis? No Sickle Cell Disease? No Arthritis? No Migraines? No Cataracts? No Glaucoma? No MRSA? No HIV? No TB? No Anxiety? No Depression? No Cancer? No More? 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 Physical Exam Vital Signs Vital Signs Date Time Temp Pulse Resp B/P Pulse O2 O2 Flow FiO2 Ox Delivery Rate 05/21 1927 98.1 92 20 128/85 96 05/21 185 98.1 92 20 128/85 96 General Appearance no apparent distress Eye Exam - bilateral eye normal exam, bilateral eye PERRL, bilateral eye EOMI Ear, Nose, Throat hearing grossly normal, normal ENT inspection Neck normal inspection, non-tender, supple, full range of motion Respiratory Status Yes: trachea midline, chest symmetrical. No: respiratory distress. Lung Sounds bilateral: normal breath sounds, lungs clear. Cardiovascular normal exam, regular rate/rhythm, no peripheral edema, no gallop, no JVD, no murmur, no rub, normal peripheral pulses Gastrointestinal normal bowel sounds, normal exam, non tender, soft, no organomegaly Extremities normal inspection Neurologic alert, normal exam, oriented x 3 Mental status normal mood/affect Skin intact, normal color, warm/dry Medical Decision Making LABS/Meds/Orders Pt receiving controlled substance in ED? No Progress - 7:13 PM: The patient is completely symptom free. He had a brief episode of pelvic cramping without bleeding. She has normal heart tones. She has a nontender abdomen. She declines speculum vaginal examination. I feel she can be discharged for outpatient follow-up by her physical therapy technician. Return for any severe prolonged cramping or vaginal bleeding. Departure Departure Disposition DC Home or Self Care(routine) Clinical Impression Primary Impression: Abdominal pain affecting Condition STABLE Patient Instructions DI for Abdominal Pain -- Early Additional Instructions Call your physical therapy technician tomorrow to arrange outpatient follow-up. Rest, no strenuous activity tonight. Return to the emergency department if any prolonged cramping or vaginal bleeding. ED Critical Care Critical Care No at 1932
--- NOTE | 2017-05-21 19:15 | Emergency Room Report ---
History of Present Illness Time Seen by [id number] Presenting Problem in Triage Pt arrived:Walked Presenting Problem:PT REPORTS IS 13 WEEKS GESTATION, STATES SHE WAS PACKING SOME THINGS TO HER CAR, BEGAN HAVING LOWER PELVIC CRAMPING, STATES CRAMPING LASTED APPROX 10 MINUTES AND STOPPED AFTER SHE SAT DOWN. PT DENIES ANY VAGINAL BLEEDING OR DISCHARGE. PT STATES NO PAIN AT THIS TIME. 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 N Clinical Suspician of Infection? N Mental Status: 1 - Regular (Normal Baseline) Sepsis Risk:Possible Sepsis Risk Have you (or family members/close friends) recently traveled outside the [place]? N If Yes, where/when: Have you had exposure to infectious disease within the past month? N TB? Other? Specify: Comment The patient is and complains of an episode of pelvic cramping. She says that she had been doing some lifting when she developed some intense suprapubic cramping, she sat down and went away. Total duration was about 10-15 minutes. No bleeding or discharge or fluid leakage. Symptoms are now completely gone. She is 2 AB 1. She had a miscarriage last year and says that she had a lot of cramping with that and no bleeding and therefore this concerned her. She was at about 8 weeks when that happened. She has seen her associate software application engineer for this and had an ultrasound done one week ago, at that time she was 12 weeks gestation and treated her in . No urinary symptoms, bowel symptoms, or fever. ALLERGIES Coded Allergies: No Known Allergies (02/04/17) Home Medications Reported Medications Progesterone, Micronized (Progesterone) 100 MG PO DAILY #30 PNV WITH CA,NO.72/IRON/FA ( Plus Tablet) 1 TAB PO DAILY #30 History Medical History General CAD? No Angina: No [place]: No Hypertension? No Hyperlipidemia? No CHF? No DVT? No PE? No COPD? No Asthma? No Anemia? No GERD? No Gastric ulcers? No GI Bleed? No Hernia? No Thyroid Problems? No Hypothyroidism? No CVA? No Seizures? No Diabetes? No Renal Insuffiency? No End Stage Renal Disease? No UTI? No Stones? No BPH? No GB Disease: No Nephritic Syndrome? No Asplenia? No Hepatitis? No Sickle Cell Disease? No Arthritis? No Migraines? No Cataracts? No Glaucoma? No MRSA? No HIV? No TB? No Anxiety? No Depression? No Cancer? No More? 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 Physical Exam Vital Signs Vital Signs Date Time Temp Pulse Resp B/P Pulse O2 O2 Flow FiO2 Ox Delivery Rate 05/21 1927 98.1 92 20 128/85 96 05/21 185 98.1 92 20 128/85 96 General Appearance no apparent distress Eye Exam - bilateral eye normal exam, bilateral eye PERRL, bilateral eye EOMI Ear, Nose, Throat hearing grossly normal, normal ENT inspection Neck normal inspection, non-tender, supple, full range of motion Respiratory Status Yes: trachea midline, chest symmetrical. No: respiratory distress. Lung Sounds bilateral: normal breath sounds, lungs clear. Cardiovascular normal exam, regular rate/rhythm, no peripheral edema, no gallop, no JVD, no murmur, no rub, normal peripheral pulses Gastrointestinal normal bowel sounds, normal exam, non tender, soft, no organomegaly Extremities normal inspection Neurologic alert, normal exam, oriented x 3 Mental status normal mood/affect Skin intact, normal color, warm/dry Medical Decision Making LABS/Meds/Orders Pt receiving controlled substance in ED? No Progress - 7:13 PM: The patient is completely symptom free. He had a brief episode of pelvic cramping without bleeding. She has normal heart tones. She has a nontender abdomen. She declines speculum vaginal examination. I feel she can be discharged for outpatient follow-up by her associate software application engineer. Return for any severe prolonged cramping or vaginal bleeding. Departure Departure Disposition DC Home or Self Care(routine) Clinical Impression Primary Impression: Abdominal pain affecting Condition STABLE Patient Instructions DI for Abdominal Pain -- Early Additional Instructions Call your associate software application engineer tomorrow to arrange outpatient follow-up. Rest, no strenuous activity tonight. Return to the emergency department if any prolonged cramping or vaginal bleeding. ED Critical Care Critical Care No at 1932
[2017-05-21 19:27] VITALS: BP 128/85
== END 2017-05-21 19:27 | disposition home or self-care (01) ==
LOC: ER 18:47
DX: R10.2 Pelvic and perineal pain (principal); Z34.01 Encounter for supervision of normal first pregnancy, first trimester